=== PATIENT | male | born 1950 | race American Indian/Alaskan Native ===

== ENCOUNTER 2018-04-14 09:07 | Emergency (ER) | payer MEDICARE, OTHER ==
[2018-04-14 09:07] VITALS: BMI 19.8
[2018-04-14 09:15] VITALS: BP 172/85; PULSE 80; RESP 18; TEMP 98; O2SAT 98
[2018-04-14] MEDS ORDERED: Tmp-Smz 800 mg-160 mg DS Tab PO STA (09:36)
[2018-04-14] MEDS ORDERED: Tmp-Smz 800 mg-160 mg DS Tab ONE (09:54)
--- NOTE | 2018-04-14 10:56 | C.PDOC ---
History Of Present Illness 67 y/o male presents to the ER complaining of an inflamed lesion below the right eye for three days He also complains of a rash to the bilateral medial thighs and bilateral forearms that began three days ago. Patient recently returned to apartment from a trip and thinks he has bedbugs. He applies a moisturizer daily to skin but denies using any new allergen, detergent or moisturizer. Time Seen by Provider: 04/14/18 09:25 Chief Complaint (Nursing): Eye Problem History Per: Patient History/Exam Limitations: no limitations Onset/Duration Of Symptoms: Days Current Symptoms Are (Timing): Still Present Pain Scale Rating Of: 2 Past Medical History Reviewed: Historical Data, Nursing Documentation, Vital Signs Vital Signs: Last Vital Signs Temp 98 F 04/14/18 09:13 Pulse 80 04/14/18 09:13 Resp 18 04/14/18 11:27 BP 172/85 H 04/14/18 09:13 Pulse Ox 98 04/14/18 12:00 - Medical History PMH: Anemia, Back Problems Other Surgeries: Gastric Bypass Family History: States: Unknown Family Hx - Social History Hx Tobacco Use: No Hx Alcohol Use: Yes Hx Substance Use: No - Immunization History Hx Tetanus Toxoid Vaccination: Yes Hx Influenza Vaccination: Yes Hx Pneumococcal Vaccination: Yes Review Of Systems Except As Marked, All Systems Reviewed And Found Negative. Constitutional: Negative for: Fever, Chills Eyes: Negative for: Vision Change ENT: Positive for: Other (Right eye swelling). Negative for: Throat Swelling Respiratory: Negative for: Shortness of Breath Skin: Positive for: Rash (extends to bilateral medial thighs and bilateral forearms) Neurological: Negative for: Weakness, Numbness Physical Exam - Physical Exam Appears: Well, Non-toxic, No Acute Distress Skin: Warm, Dry, Rash (nummular rash and wheels to the medial thighs and bilateral forearms going up to the shirt line, but not under wrist watch area) Head: Atraumatic, Normacephalic Eye(s): bilateral: PERRL, EOMI, right: Other (Below R eye: 3x2 cm area of induration, without fluctuance, centered around a pustule vs. sebaceous cyst) Ear(s): Bilateral: Normal Oral Mucosa: Moist Neck: Normal ROM, Supple Chest: Symmetrical Extremity: Normal ROM Extremity: Bilateral: Atraumatic Pulses: Left Radial: Normal, Right Radial: Normal Neurological/Psych: Oriented x3 Gait: Steady ED Course And Treatment O2 Sat by Pulse Oximetry: 98 (RA) Pulse Ox Interpretation: Normal Medical Decision Making Medical Decision Making: Impression:67 y/o male with swollen right eye and nummular rash and wheels Plan: --Pepcid 20 mg PO --Benadryl 25 mg PO --predniSONE 40 mg PO --Bactrim 1 tab PO b/l forearms with nummular rash in sun exposed areas which respects the shirtsleeve line and the wristwatch area Applies a daily lotion to the arms. probably contact dermatitis due to the lotion activated by sun exposure b/l medial thigh symmetrical confluent wheals improved with steroids//pepcid/benadryl also allergic rxn vs contact dermatitis but not in sun-exposed areas. small sebeceous cyst on R cheek bactrim for risk of MRSA warm compresses. Disposition Doctor Will See Patient In The: Office Counseled Patient/Family Regarding: Studies Performed, Diagnosis - Disposition Referrals: Sp Mckeon MD [Medical Doctor] - Disposition: HOME/ ROUTINE Disposition Time: 10:56 Condition: GOOD Additional Instructions: b/l forearms with numular rash in sun exposed areas which respects the shirtsleeve line and the wristwatch area Applies a daily lotion to the arms. probably contact dermatitis due to the lotion activated by sun exposure STOP any lotions to the forearm skin Prednisone 40 mg daily for 4 more days Pepcid 20 mg twice a day (9AM and 9PM) protects the stomach from irritation from the prednisone Benadryl 25-50 mg every 6 hours as needed for pururitis/itchy skin b/l medial thigh symmetrical confluent wheals improved with steroids//pepcid/benadryl also allergic rxn vs contact dermatitis but not in sun-exposed areas. same treatment as above small sebaceous cyst on R cheek bactrim DS (antibiotic) twice a day to complete 5 days, for risk of MRSA do NOT stop antibiotics prior to 5 days warm compresses 20 min/hour until puss released return to ED if wound worstening. 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 I have reviewed the chart and agree that the record accurately reflects my personal performance of the history, physical exam, medical decision making, and the department course for this patient. I have also personally directed, reviewed, and agree with the discharge instructions and disposition.
== END 2018-04-14 11:27 | disposition home or self-care (01) ==
LOC: C.ER 09:07
DX: L72.3 Sebaceous cyst (principal); L25.3 Unspecified contact dermatitis due to other chemical products

== ENCOUNTER 2018-04-14 19:45 | Inpatient (IN) | payer MEDICARE, OTHER ==
[2018-04-14 19:45] VITALS: BMI 19.8
[2018-04-14] MEDS ORDERED: Morphine 4 MG/ML VIAL ONE (20:59)
[2018-04-14 21:05] LABS: BASO % 0.2 % (0.0-2.0); HEMOGLOBIN 14.5 g/dL (12.0-18.0); LYMPH # 0.8 K/uL (1.0-4.3); LYMPH % 6.8 % (20.0-40.0); MEAN CELL VOLUME 89.9 fL (80.0-94.0); MEAN CORPUSCULAR HEMOGLOBIN 29.8 pg (27.0-31.0); MEAN CORPUSCULAR HGB CONC 33.1 g/dL (33.0-37.0); MEAN PLATELET VOLUME 8.7 fL (7.2-11.7); MONO # 0.5 K/uL (0.0-0.8); MONO % 4.5 % (0.0-10.0); NEUT # 9.8 K/uL (1.8-7.0); NEUT % 88.5 % (50.0-75.0); PLATELET COUNT 283 K/uL (130-400); RBC 4.86 Mil/uL (4.40-5.90); RED CELL DISTRIBUTION WIDTH 15.4 % (11.5-14.5); WHITE BLOOD COUNT 11.1 K/uL (4.8-10.8)
[2018-04-14 21:22] LABS: PROTHROMBIN TIME 11.2 SECONDS (9.7-12.2)
[2018-04-14 21:32] LABS: ALB/GLOB RATIO 1.1 (1.0-2.1); ALBUMIN 4.1 g/dL (3.5-5.0); GFR AFRICAN-AMERICAN > 60; GFR NON-AFRICAN AMERICAN > 60
[2018-04-14 21:35] LABS: ALT/SGPT 49 U/L (21-72); AST/SGOT 57 U/L (17-59); BLOOD UREA NITROGEN 17 mg/dL (9-20)
--- NOTE | 2018-04-14 21:39 | C.PDOC ---
History Of Present Illness Pt states that he is unable to reduce his hernia (which he day since the ) today. Time Seen by Provider: 04/14/18 20:19 Chief Complaint (Nursing): Abdominal Pain History Per: Patient Onset/Duration Of Symptoms: Hrs (since this afternoon), Persistent Current Symptoms Are (Timing): Still Present Severity: Moderate Location Of Pain/Discomfort: Other (Left inguinal) Quality Of Discomfort: "Pain" Exacerbating Factors: Movement Alleviating Factors: None Additional History Per: Prior Records Past Medical History Reviewed: Historical Data, Nursing Documentation, Vital Signs Vital Signs: Last Vital Signs Temp 97.8 F 04/14/18 20:09 Pulse 89 04/14/18 20:58 Resp 18 04/14/18 20:58 BP 192/83 H 04/14/18 20:58 Pulse Ox 98 04/14/18 20:58 - Medical History PMH: Back Problems Other Surgeries: Gastric bypass Family History: States: Unknown Family Hx - Social History Hx Tobacco Use: No Hx Alcohol Use: No Hx Substance Use: No - Immunization History Hx Tetanus Toxoid Vaccination: No Hx Influenza Vaccination: Yes Hx Pneumococcal Vaccination: Yes Review Of Systems Except As Marked, All Systems Reviewed And Found Negative. Constitutional: Negative for: Fever, Weakness Cardiovascular: Negative for: Chest Pain Respiratory: Negative for: Shortness of Breath Gastrointestinal: Negative for: Vomiting, Abdominal Pain, Constipation Genitourinary: Negative for: Dysuria Skin: Positive for: Rash Neurological: Negative for: Weakness, Numbness Physical Exam - Physical Exam Appears: Non-toxic, No Acute Distress Skin: Warm, Dry, Rash Head: Atraumatic, Normacephalic Eye(s): bilateral: PERRL, EOMI Neck: Normal ROM, Supple Cardiovascular: Rhythm Regular Respiratory: Normal Breath Sounds, No Accessory Muscle Use Gastrointestinal/Abdominal: Soft, No Tenderness, No Distention, Hernia (left inguinal) Back: No CVA Tenderness Male Genital: No Testicular Tenderness, Inguinal Tenderness (left), Inguinal Swelling (left) Extremity: Normal ROM Neurological/Psych: Oriented x3, Normal Motor, Normal Sensation ED Course And Treatment - Laboratory Results Result Diagrams: 04/14/18 21:01 04/14/18 21:01 O2 Sat by Pulse Oximetry: 98 Pulse Ox Interpretation: Normal Progress Note: I placed pt on trendelenburg position and tried to reduce hernia unsuccessfully. Pt was evaluated by the surgery resident who was not able to reduce hernia manually as well. Pt will be admitted to surgery sonogram technician (Dr. Lloyd Zapien). Reassessment Condition: Unchanged Disposition Counseled Patient/Family Regarding: Studies Performed, Diagnosis - Disposition Disposition: HOSPITALIZED Disposition Time: 21:42 Condition: FAIR - Clinical Impression Clinical Impression: Incarcerated left inguinal hernia
[2018-04-14 21:51] LABS: EOSINOPHIL 1 % (0-4); LYMPHOCYTE 8 % (20-40); MONOCYTE 4 % (0-10); NEUTROPHIL 87 % (50-75); PLATELET ESTIMATE NORMAL (NORMAL); TOTAL CELLS COUNTED 100
[2018-04-14 21:52] LABS: LARGE PLATELETS PRESENT; MICROCYTOSIS SLIGHT
[2018-04-14] MEDS ORDERED: Iohexol 240 (50 ml) PO STA (22:06)
[2018-04-14] MEDS ORDERED: Iohexol 240 (50 ml) ONE (22:18)
[2018-04-14] MEDS ORDERED: Iodixanol 320 MG/ML 100 ML BOTTLE IV ONE (23:06)
[2018-04-14] MEDS ORDERED: Sod Polystyrene Sulf 15 gm/60 ml Susp PO ONE (23:21)
--- NOTE | 2018-04-14 23:43 | CP.PCM.CON ---
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 Patient reports that he has had a left inguinal hernia for the past 21-22 years which has been reducible with firm pressure and application of ice pack whenever it is displaced and there has been no significant complications. However, patient has noticed it has become increasingly difficult to reduce his hernia for the past few weeks. Patient noted hernia displacement earlier this afternoon and it was truly uneducble with moderate discomfort unlike its prior presentation, therefore, patient came to the ED. After ED evaluation and imaging, patient was noted to have an incarcerated L inguinal hernia and was admitted to surgery. Medicine consultation was placed for medical clearance prior to OR later today. Patient denies any associated symptoms of fever, chills, chest pain, palpitations, SOB, abdominal pain, D/C, hematochezia, urinary symptoms, recent travels or sickness and heavy lifting . Patient does admit to straining upon urination. Patient was recently treated for right under eye possible due to bug bite and contact dermatitis of bilateral inner thigh, collar bone and bilateral arms. Code Status: Full code. 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 Denies any current or former use of tobacco, ETOH and illicit drugs. Review of Systems - Constitutional Constitutional: absent: Chills, Fever, Headache, Weakness - EENT Eyes: absent: Blurred Vision, Change in Vision Ears: absent: Dizziness - Cardiovascular Cardiovascular: absent: Chest Pain, Dyspnea, Lightheadedness, Palpitations - Respiratory Respiratory: absent: Cough, Dyspnea, Dyspnea on Exertion, Wheezing - Gastrointestinal Gastrointestinal: absent: Abdominal Pain, Nausea, Vomiting - Genitourinary Genitourinary: Difficulty Urinating. absent: Pyuria, Urinary Frequency, Urinary Urgency - Integumentary Integumentary: Rash - Neurological Neurological: absent: Dizziness, Weakness - Psychiatric Psychiatric: absent: Change in Appetite - Endocrine Endocrine: absent: Fatigue, Palpitations Past Patient History - Past Social History Smoking Status: Never Smoked - INTEGUMENTARY Other/Comment: skin problem - MUSCULOSKELETAL/RHEUMATOLOGICAL Hx Musculoskeletal Disorders: Yes Hx Back Pain: Yes Other/Comment: sciatica - GASTROINTESTINAL Other/Comment: left inguinal hernia - PSYCHIATRIC Hx Substance Use: No - SURGICAL HISTORY Hx Surgeries: Yes Hx Gastric Bypass Surgery: Yes (done 1990) - ANESTHESIA Hx Anesthesia: Yes Hx Anesthesia Reactions: No Hx Malignant Hyperthermia: No Meds Allergies/Adverse Reactions: Allergies Allergy/AdvReac Type Severity Reaction Status Date / Time No Known Allergies Allergy Verified 04/14/18 20:13 - Medications Medications: Current Medications Acetaminophen (Tylenol 325mg Tab) 650 mg PO Q6H PRN PRN Reason: Pain, Mild (1-3) Ketorolac Tromethamine (Toradol) 30 mg IVP Q6H PRN PRN Reason: Pain, moderate (4-7) Sennosides (Senokot Tab) 17.2 mg PO HS TAISHA Physical Exam - Constitutional Appears: No Acute Distress - Head Exam Head Exam: ATRAUMATIC, NORMAL INSPECTION - Eye Exam Eye Exam: EOMI, Normal appearance - ENT Exam ENT Exam: Mucous Membranes Moist - Respiratory Exam Respiratory Exam: Clear to Auscultation Bilateral, NORMAL BREATHING PATTERN. absent: Chest Wall Tenderness, Decreased Breath Sounds, Prolonged Expiratory Phase, Rhonchi, Wheezes - Cardiovascular Exam Cardiovascular Exam: REGULAR RHYTHM, +S1, +S2, Systolic Murmur - GI/Abdominal Exam GI & Abdominal Exam: Normal Bowel Sounds, Soft. absent: Diminished Bowel Sounds , Distended, Firm, Guarding, Tenderness - Exam Additional comments: Unreducible left inguinal hernia - Extremities Exam Extremities exam: Positive for: normal inspection. Negative for: calf tenderness, full ROM, pedal edema, tenderness - Back Exam Back exam: NORMAL INSPECTION. absent: CVA tenderness (L), CVA tenderness (R) - Neurological Exam Neurological exam: Alert, CN II-XII Intact, Normal Gait, Oriented x3 - Skin Skin Exam: Normal Color Additional comments: Contact dermatitis of the bilateral inner thigh, collar bone and bilateral UE Results - Vital Signs Recent Vital Signs: Last Vital Signs Temp 97.5 F L 04/14/18 23:05 Pulse 82 04/14/18 23:05 Resp 20 04/14/18 23:05 BP 199/83 H 04/14/18 23:05 Pulse Ox 100 04/14/18 23:05 - Labs Result Diagrams: 04/14/18 21:01 04/14/18 21:01 Labs: Laboratory Results - last 24 hr 04/14/18 04/14/18 04/14/18 21:01 21:01 21:01 WBC 11.1 H RBC 4.86 Hgb 14.5 Hct 43.6 MCV 89.9 MCH 29.8 MCHC 33.1 RDW 15.4 H Plt Count 283 MPV 8.7 Neut % (Auto) 88.5 H Lymph % (Auto) 6.8 L [place] % (Auto) 4.5 Eos % (Auto) 0.0 Baso % (Auto) 0.2 Neut # (Auto) 9.8 H Lymph # (Auto) 0.8 L [place] # (Auto) 0.5 Eos # (Auto) 0.0 Baso # (Auto) 0.0 Neutrophils % (Manual) 87 H Lymphocytes % (Manual) 8 L Monocytes % (Manual) 4 Eosinophils % (Manual) 1 Platelet Estimate Normal Large Platelets Present Microcytosis (manual) Slight PT 11.2 INR 1.0 APTT 33 Sodium 139 Potassium 5.5 H Chloride 104 Carbon Dioxide 22 Anion Gap 18 BUN 17 Creatinine 0.7 L Est GFR ( Amer) > 60 Est GFR (Non-Af Amer) > 60 Random Glucose 115 H Calcium 9.0 Total Bilirubin 0.5 AST 57 ALT 49 Alkaline Phosphatase 122 Total Protein 7.8 Albumin 4.1 Globulin 3.7 Albumin/Globulin Ratio 1.1 Assessment & Plan (1) Incarcerated left inguinal hernia Assessment and Plan: Gen Surgery, Dr. Tim Zapien * Plans OR today F/u pending CT of abdomen/pelvis Medical Clearance by medicine team (Hospitalist service) * EKG: NSR at 84 BPM with significant left ventricular hypertrophy * Chest X-ray: Increased lung markings, f/u official report * PT/PTT: within normal limit * H/H stable at 14.5 and 43.6 * F/u echo report for evaluation of noted systolic murmur on cardiac exam Patient has a Detsky score of 0. This belongs to class I with 6% risk of cardiovascular complications after non cardiac surgery. Patient has a low risk of perioperative clearance event. Surgeon and anesthesiologist to explain the risks and benefits of the procedure. Status: Acute (2) Contact dermatitis and other eczema due to other chemical products Assessment and Plan: Benadryl 25mg IV Q6H PRN for itching Hydrocortisone 1% topical BID Status: Acute (3) Aortic systolic murmur on examination Assessment and Plan: Asymptomatic F/U echocardiogram Status: Acute (4) Elevated blood pressure reading without diagnosis of hypertension Assessment and Plan: On admission 192/97 Medications given in the ED: * Clonidine 0.1mg PO once * Norvasc 5mg once * Hydralazine 10mg IV once Will start Norvasc 5mg PO daily Continue to monitor with vital sign Q4H Status: Acute (5) Elevated WBCs Assessment and Plan: On admission: * 11 * Continue to monitor with labs Status: Acute (6) Prophylactic measure Assessment and Plan: GI: Pepcid 20mg PO QD with NSAID use for pain control DVT: SCDs, no chemical anticoagulation due to plans for OR today All plans and management discussed with Dr. Yanez Status: Acute <Michael Yanez - Last Filed: 04/15/18 19:56> Results - Vital Signs Recent Vital Signs: Last Vital Signs Temp 99 F 04/15/18 07:50 Pulse 88 04/15/18 07:50 Resp 20 04/15/18 07:50 BP 168/72 H 04/15/18 07:50 Pulse Ox 97 04/15/18 07:50 - Labs Result Diagrams: 04/15/18 04:35 04/15/18 04:35 Labs: Laboratory Results - last 24 hr 04/14/18 04/14/18 04/14/18 21:01 21:01 21:01 WBC 11.1 H RBC 4.86 Hgb 14.5 Hct 43.6 MCV 89.9 MCH 29.8 MCHC 33.1 RDW 15.4 H Plt Count 283 MPV 8.7 Neut % (Auto) 88.5 H Lymph % (Auto) 6.8 L [place] % (Auto) 4.5 Eos % (Auto) 0.0 Baso % (Auto) 0.2 Neut # (Auto) 9.8 H Lymph # (Auto) 0.8 L [place] # (Auto) 0.5 Eos # (Auto) 0.0 Baso # (Auto) 0.0 Neutrophils % (Manual) 87 H Band Neutrophils % Lymphocytes % (Manual) 8 L Reactive Lymphs % Monocytes % (Manual) 4 Eosinophils % (Manual) 1 Platelet Estimate Normal Large Platelets Present Anisocytosis (manual) Microcytosis (manual) Slight Macrocytosis (manual) PT 11.2 INR 1.0 APTT 33 Sodium 139 Potassium 5.5 H Chloride 104 Carbon Dioxide 22 Anion Gap 18 BUN 17 Creatinine 0.7 L Est GFR ( Amer) > 60 Est GFR (Non-Af Amer) > 60 POC Glucose (mg/dL) Random Glucose 115 H Hemoglobin A1c Calcium 9.0 Total Bilirubin 0.5 AST 57 ALT 49 Alkaline Phosphatase 122 Total Protein 7.8 Albumin 4.1 Globulin 3.7 Albumin/Globulin Ratio 1.1 Triglycerides Cholesterol LDL Cholesterol Direct HDL Cholesterol Free T4 TSH 3rd Generation Blood Type Antibody Screen 04/15/18 04/15/18 04/15/18 01:25 04:35 04:35 WBC 11.3 H RBC 4.60 Hgb 13.7 Hct 41.0 MCV 89.1 MCH 29.9 MCHC 33.5 RDW 15.3 H Plt Count 260 MPV 8.5 Neut % (Auto) 89.6 H Lymph % (Auto) 6.4 L [place] % (Auto) 3.7 Eos % (Auto) 0.1 Baso % (Auto) 0.2 Neut # (Auto) 10.1 H Lymph # (Auto) 0.7 L [place] # (Auto) 0.4 Eos # (Auto) 0.0 Baso # (Auto) 0.0 Neutrophils % (Manual) 89 H Band Neutrophils % 2 Lymphocytes % (Manual) 5 L Reactive Lymphs % 1 H Monocytes % (Manual) 3 Eosinophils % (Manual) Platelet Estimate Normal Large Platelets Anisocytosis (manual) Slight Microcytosis (manual) Macrocytosis (manual) Slight PT INR APTT Sodium 139 Potassium 4.4 Chloride 104 Carbon Dioxide 22 Anion Gap 18 BUN 14 Creatinine 0.7 L Est GFR ( Amer) > 60 Est GFR (Non-Af Amer) > 60 POC Glucose (mg/dL) 135 H Random Glucose 125 H Hemoglobin A1c Calcium 8.4 L Total Bilirubin AST ALT Alkaline Phosphatase Total Protein Albumin Globulin Albumin/Globulin Ratio Triglycerides 55 Cholesterol 158 LDL Cholesterol Direct 85 HDL Cholesterol 42 Free T4 TSH 3rd Generation 1.29 Blood Type Antibody Screen 04/15/18 04/15/18 04/15/18 04:35 04:35 04:58 WBC RBC Hgb Hct MCV MCH MCHC RDW Plt Count MPV Neut % (Auto) Lymph % (Auto) [place] % (Auto) Eos % (Auto) Baso % (Auto) Neut # (Auto) Lymph # (Auto) [place] # (Auto) Eos # (Auto) Baso # (Auto) Neutrophils % (Manual) Band Neutrophils % Lymphocytes % (Manual) Reactive Lymphs % Monocytes % (Manual) Eosinophils % (Manual) Platelet Estimate Large Platelets Anisocytosis (manual) Microcytosis (manual) Macrocytosis (manual) PT INR APTT Sodium Potassium Chloride Carbon Dioxide Anion Gap BUN Creatinine Est GFR ( Amer) Est GFR (Non-Af Amer) POC Glucose (mg/dL) Random Glucose Hemoglobin A1c 5.0 Calcium Total Bilirubin AST ALT Alkaline Phosphatase Total Protein Albumin Globulin Albumin/Globulin Ratio Triglycerides Cholesterol LDL Cholesterol Direct HDL Cholesterol Free T4 1.15 TSH 3rd Generation Blood Type O POSITIVE Antibody Screen Negative 04/15/18 04/15/18 06:18 11:11 WBC RBC Hgb Hct MCV MCH MCHC RDW Plt Count MPV Neut % (Auto) Lymph % (Auto) [place] % (Auto) Eos % (Auto) Baso % (Auto) Neut # (Auto) Lymph # (Auto) [place] # (Auto) Eos # (Auto) Baso # (Auto) Neutrophils % (Manual) Band Neutrophils % Lymphocytes % (Manual) Reactive Lymphs % Monocytes % (Manual) Eosinophils % (Manual) Platelet Estimate Large Platelets Anisocytosis (manual) Microcytosis (manual) Macrocytosis (manual) PT INR APTT Sodium Potassium Chloride Carbon Dioxide Anion Gap BUN Creatinine Est GFR ( Amer) Est GFR (Non-Af Amer) POC Glucose (mg/dL) 104 104 Random Glucose Hemoglobin A1c Calcium Total Bilirubin AST ALT Alkaline Phosphatase Total Protein Albumin Globulin Albumin/Globulin Ratio Triglycerides Cholesterol LDL Cholesterol Direct HDL Cholesterol Free T4 TSH 3rd Generation Blood Type Antibody Screen Assessment & Plan - Date & Time Date: 04/15/18 (I have seen and examined the patient. I agree with the findings and plan of care as documented by Dr. Littlejohn. Patient admitted for incarcerated inguinal hernia. Management as per surgery. Consult to medicine for elevated BP. No previous diagnosis of hypertension. Clonidine and Amlodipine given in ED. Continue Amlodipine and hydralazine as needed. Adjust accordingly. Monitor for acute changes.) Time: 19:54 Attending/Attestation - Attestation I have personally seen and examined this patient.: Yes I have fully participated in the care of the patient.: Yes I have reviewed all pertinent clinical information: Yes
--- NOTE | 2018-04-14 23:54 | CP.PCM.HP ---
History of Present Illness - History of Present Illness History of Present Illness: Surgery: Dr. Zapien CC: Incarcerated L inguinal hernia HPI: 67M presents with incarcerated L inguinal hernia. Pt states that he has had hernia for past 21 yrs. Hernia occasionally pops out, but pt states that he has always been able to reduce it with firm pressure or ice. He states that his hernia popped out earlier today and it did not feel like the prior occasions. He states that he attempted to reduce it but was unsuccessful. He states that he has a localized pain to the area. He denies any F/C. No changes in appetite, no N/V. He states that his last BM was this morning and it was normal. He states that he has been having decreased flatus. Over the past 2 weeks, he has had some straining on urination. He states that his mother recently and that he has been under increased amounts of stress. Of note, pt was in ED earlier in day for unrelated issue. He states that he was seen and treated for a cyst under his eye and a contact dermatitis. PMH: anemia-resolved, Guillaren-barre type picture in 2014 PSH: Distal gastric bypass, questionable hx of IVCF Meds: MAR reviewed NKDA Social: No ETOH/Tobacco/drugs Fhx: Non-contributory Present on Admission - Present on Admission Any Indicators Present on Admission: No Review of Systems - Review of Systems All systems: reviewed and no additional remarkable complaints except (HPI) Past Patient History - Past Social History Smoking Status: Never Smoked - INTEGUMENTARY Other/Comment: skin problem - MUSCULOSKELETAL/RHEUMATOLOGICAL Hx Musculoskeletal Disorders: Yes Hx Back Pain: Yes Other/Comment: sciatica - GASTROINTESTINAL Other/Comment: left inguinal hernia - PSYCHIATRIC Hx Substance Use: No - SURGICAL HISTORY Hx Surgeries: Yes Hx Gastric Bypass Surgery: Yes (done 1990) - ANESTHESIA Hx Anesthesia: Yes Hx Anesthesia Reactions: No Hx Malignant Hyperthermia: No Meds Allergies/Adverse Reactions: Allergies Allergy/AdvReac Type Severity Reaction Status Date / Time No Known Allergies Allergy Verified 04/14/18 20:13 Physical Exam - Constitutional Appears: Non-toxic, No Acute Distress - Head Exam Head Exam: ATRAUMATIC, NORMOCEPHALIC - Eye Exam Eye Exam: EOMI - ENT Exam ENT Exam: Mucous Membranes Moist - Neck Exam Neck exam: Positive for: Normal Inspection - Respiratory Exam Respiratory Exam: NORMAL BREATHING PATTERN. absent: Accessory Muscle Use, Respiratory Distress - Cardiovascular Exam Additional comments: Regular rate - GI/Abdominal Exam GI & Abdominal Exam: Hernia (incarcerated L inguinal hernia, tender to palpation ), Soft. absent: Distended, Firm, Guarding, Rigid, Tenderness - Extremities Exam Extremities exam: Negative for: calf tenderness, pedal edema - Neurological Exam Neurological exam: Alert, Oriented x3 - Psychiatric Exam Psychiatric exam: Normal Affect, Normal Mood - Skin Skin Exam: Dry, Warm Results - Vital Signs Recent Vital Signs: Last Vital Signs Temp 97.5 F L 04/14/18 23:05 Pulse 82 04/14/18 23:05 Resp 20 04/14/18 23:05 BP 199/83 H 04/14/18 23:05 Pulse Ox 100 04/14/18 23:05 - Labs Result Diagrams: 04/14/18 21:01 04/14/18 21:01 Labs: Laboratory Results - last 24 hr 04/14/18 04/14/18 04/14/18 21:01 21:01 21:01 WBC 11.1 H RBC 4.86 Hgb 14.5 Hct 43.6 MCV 89.9 MCH 29.8 MCHC 33.1 RDW 15.4 H Plt Count 283 MPV 8.7 Neut % (Auto) 88.5 H Lymph % (Auto) 6.8 L [place] % (Auto) 4.5 Eos % (Auto) 0.0 Baso % (Auto) 0.2 Neut # (Auto) 9.8 H Lymph # (Auto) 0.8 L [place] # (Auto) 0.5 Eos # (Auto) 0.0 Baso # (Auto) 0.0 Neutrophils % (Manual) 87 H Lymphocytes % (Manual) 8 L Monocytes % (Manual) 4 Eosinophils % (Manual) 1 Platelet Estimate Normal Large Platelets Present Microcytosis (manual) Slight PT 11.2 INR 1.0 APTT 33 Sodium 139 Potassium 5.5 H Chloride 104 Carbon Dioxide 22 Anion Gap 18 BUN 17 Creatinine 0.7 L Est GFR ( Amer) > 60 Est GFR (Non-Af Amer) > 60 Random Glucose 115 H Calcium 9.0 Total Bilirubin 0.5 AST 57 ALT 49 Alkaline Phosphatase 122 Total Protein 7.8 Albumin 4.1 Globulin 3.7 Albumin/Globulin Ratio 1.1 Assessment & Plan - Assessment and Plan (Free Text) Assessment: 67M w. incarcerated L inguinal hernia -Will plan for OR tomorrow 04/15 for repair -Medicine consulted for clearance -CT-A/P pending, f/u results -NPO -IVF -Pain meds -d/w attending Lauren PGY4 Decision To Admit - Pt Status Changed To: Hospital Disposition Of: Inpatient - Admit Certification Admit to Inpatient:: After my assessment, the patient will require hospitalization for at least two midnights. This is because of the severity of symptoms shown, intensity of services needed, and/or the medical risk in this patient being treated as an outpatient. - InPatient: Physician Admission Certification:: yes - . Bed Request Type: Regular
[2018-04-15] MEDS: Sodium Chloride 0.9% 1,000 ML IV SCH ×2 (01:05→07:05)
[2018-04-15 01:30] VITALS: RESP 20
[2018-04-15] MEDS ORDERED: DiphenhydrAMINE 50 mg/ml Inj IVP PRN (01:53)
[2018-04-15] MEDS ORDERED: cefTRIAXone IV 1 gm in Dextros 50 ML IVPB ONE (02:06)
[2018-04-15] MEDS ORDERED: Azithromycin 500 MG in Sodium Chloride 0.9% 250 ML IVPB SCH ×2 (03:00→10:00)
[2018-04-15 04:41] LABS: BASO % 0.2 % (0.0-2.0); EOS % 0.1 % (0.0-4.0); HEMOGLOBIN 13.7 g/dL (12.0-18.0); LYMPH # 0.7 K/uL (1.0-4.3); LYMPH % 6.4 % (20.0-40.0); MEAN CELL VOLUME 89.1 fL (80.0-94.0); MEAN CORPUSCULAR HEMOGLOBIN 29.9 pg (27.0-31.0); MEAN CORPUSCULAR HGB CONC 33.5 g/dL (33.0-37.0); MEAN PLATELET VOLUME 8.5 fL (7.2-11.7); MONO # 0.4 K/uL (0.0-0.8); MONO % 3.7 % (0.0-10.0); NEUT # 10.1 K/uL (1.8-7.0); NEUT % 89.6 % (50.0-75.0); PLATELET COUNT 260 K/uL (130-400); RED CELL DISTRIBUTION WIDTH 15.3 % (11.5-14.5); WHITE BLOOD COUNT 11.3 K/uL (4.8-10.8)
[2018-04-15 05:01] LABS: BLOOD UREA NITROGEN 14 mg/dL (9-20); CALCIUM 8.4 mg/dl (8.6-10.4); GFR AFRICAN-AMERICAN > 60; GFR NON-AFRICAN AMERICAN > 60; HDL CHOLESTEROL 42 mg/dL (30-70)
[2018-04-15 05:11] LABS: LDL CHOLESTEROL 85 mg/dL (0-129)
[2018-04-15 06:10] LABS: BANDS 2 % (0-2); LYMPHOCYTE 5 % (20-40); MONOCYTE 3 % (0-10); NEUTROPHIL 89 % (50-75); REACTIVE LYMPHOCYTES 1 % (0-0); TOTAL CELLS COUNTED 100
[2018-04-15 06:11] LABS: ANISOCYTOSIS SLIGHT; PLATELET ESTIMATE NORMAL (NORMAL)
[2018-04-15 06:35] VITALS: PULSE 88
[2018-04-15 07:50] VITALS: BP 168/72; TEMP 99; O2SAT 97
--- NOTE | 2018-04-15 08:26 | RAD ---
Date of service: 04/14/2018 HISTORY: pre-op COMPARISON: No prior. FINDINGS: LUNGS: The lungs are well inflated. There is patchy airspace disease in the right mid lung and lower lobe. The left lung is clear. PLEURA: No significant pleural effusion identified, no pneumothorax apparent. CARDIOVASCULAR: Normal. OSSEOUS STRUCTURES: No significant abnormalities. VISUALIZED UPPER ABDOMEN: Normal. OTHER FINDINGS: None. IMPRESSION: Patchy airspace disease in the right upper and lower lobes may represent multifocal pneumonia. Follow-up after medical management is recommended to ensure complete resolution.
[2018-04-15] MEDS ORDERED: Hydrocortisone 1% Cream (30 GM) TOP SCH (10:00)
[2018-04-15] MEDS ORDERED: Saccharomyces Boulardi 250 mg Cap PO SCH (10:00)
--- NOTE | 2018-04-15 11:16 | CT ---
Date of service: 04/15/2018 PROCEDURE: CT Abdomen and Pelvis with contrast HISTORY: Incarcerated left inguinal hernia COMPARISON: None. TECHNIQUE: CT scan of the abdomen and pelvis was performed after administration of intravenous contrast. Oral contrast was not administered. Coronal and sagittal reformatted images were obtained. Contrast dose: 100 mL Visipaque Radiation dose: Total exam DLP = 402.60 mGy-cm. This CT exam was performed using one or more of the following dose reduction techniques: Automated exposure control, adjustment of the mA and/or kV according to patient size, and/or use of iterative reconstruction technique. FINDINGS: LOWER THORAX: There is multifocal ground-glass attenuation in the right middle lobe, lingula and left lower lobe. LIVER: Normal in size with homogeneous enhancement. No gross lesion or ductal dilatation. GALLBLADDER AND BILE DUCTS: Surgically absent. PANCREAS: Normal in size with homogeneous enhancement. No gross lesion or ductal dilatation. SPLEEN: Normal in size with homogeneous enhancement. ADRENALS: No discrete nodule. KIDNEYS AND URETERS: Normal in size with homogeneous enhancement. No hydronephrosis. No solid mass. There is a nonspecific coarse parenchymal calcification in the left upper pole. VASCULATURE: An infrarenal IVC filter remains in. No aortic aneurysm. BOWEL: The proximal small bowel loops are normal in caliber. There is segmental dilatation and mural thickening in distal small bowel loop in the right abdomen. The terminal ileum and ileocecal junction are normal. The colon is unremarkable. APPENDIX: Normal appendix. PERITONEUM: No free fluid. No free air. LYMPH NODES: No enlarged lymph nodes. BLADDER: The urinary bladder is well distended. There is herniation of the left lateral urinary bladder into the inguinal scrotal region. REPRODUCTIVE: The prostate gland is normal in size. BONES: No acute fracture. OTHER FINDINGS: There is a moderate left hydrocele. IMPRESSION: Left inguinal hernia with herniation of the left lateral urinary bladder. No evidence of bowel herniation or incarceration. Suspect multifocal alveolar edema versus pneumonia in the right middle lobe, lingula and left lower lobe. A preliminary report was provided by [employer] services.
--- NOTE | 2018-04-15 20:04 | CP.PCM.PN ---
Subjective - Date & Time of Evaluation Date of Evaluation: 04/15/18 Time of Evaluation: 10:00 - Subjective Subjective: Pt left hospital care AMA. Pt has not been able to be contacted by home and cell phone to inform of CXR and CT results of pneumonia and to call in Azithromycin 500mg BID at pt's pharmacy. Pt will follow up with out pt surgery for reduction of hernia. Objective - Vital Signs/Intake and Output Vital Signs (last 24 hours): Temp Pulse Resp BP Pulse Ox 99 F 88 20 168/72 H 97 04/15/18 07:50 04/15/18 07:50 04/15/18 07:50 04/15/18 07:50 04/15/18 07:50 - Labs Labs: 04/15/18 04:35 04/15/18 04:35 PT 11.2 SECONDS (9.7-12.2) 04/14/18 21:01 INR 1.0 04/14/18 21:01 APTT 33 SECONDS (21-34) 04/14/18 21:01
--- NOTE | 2018-04-15 20:35 | CARD ---
APPROVED REPORT Date of service: 04/15/2018 EXAM: Two-dimensional and M-mode echocardiogram with Doppler and color Doppler. Other Information Quality : GoodRhythm : INDICATION Murmur 2D DIMENSIONS IVSd1.3 (0.7-1.1cm)LVDd4.1 (3.9-5.9cm) LVOT Diameter2.2 (1.8-2.4cm)PWd1.3 (0.7-1.1cm) LVDs2.3 (2.5-4.0cm)FS (%) 43.1 % LVEF (%)74.7 (>50%) M-Mode DIMENSIONS Left Atrium (MM)3.69 (2.5-4.0cm)IVSd1.37 (0.7-1.1cm) Aortic Root3.32 (2.2-3.7cm)LVDd5.10 (4.0-5.6cm) Aortic Cusp Exc.1.49 (1.5-2.0cm)PWd0.86 (0.7-1.1cm) FS (%) 37 %LVDs3.21 (2.0-3.8cm) LVEF (%)67 (>50%) Aortic Valve AoV Peak Bytonwrj577.4cm/sAoV VTI74.5cmAO Peak GR.57mmHg LVOT Peak Wzwxqrvf939.2cm/sLVOT VTI26.60cmAO Mean GR.33mmHg SAMUEL (VMAX)1.52dt6SOL (VTI)1.36cm2 Mitral Valve MV E Rbtqvgnu551.6cm/sE/A ratio0.0 TDI E/Lateral E'0.0E/Medial E'0.0 Tricuspid Valve TR Peak Gtmvqixa573mm/sTR Peak Gr.16moUgLFYS42raIa LEFT VENTRICLE The left ventricle is normal size. There is mild concentric left ventricular hypertrophy. The left ventricular function is normal. The left ventricular ejection fraction is within the normal range. 61% No regional wall motion abnormalities noted. The left ventricular diastolic function is normal. No left ventricle thrombus noted on this study. There is no ventricular septal defect visualized. There is no left ventricular aneurysm. There is no mass noted in the left ventricle. RIGHT VENTRICLE The right ventricle is normal size. There is normal right ventricular wall thickness. The right ventricular systolic function is normal. ATRIA The left atrium size is normal. The right atrium size is normal. The interatrial septum is intact with no evidence for an atrial septal defect. AORTIC VALVE The aortic valve is trileaflet and demonstrates moderate to markedly reduced opening. Peak gradient is 60 mm Hg, and estimated valve area is 1.2 cm2 (but looks possiblly a bit less visually). Clinical correlation. Mild aortic regurgitation is present. There is no aortic valvular stenosis. There is no aortic valvular vegetation. MITRAL VALVE The mitral valve is normal in structure and function. There is no evidence of mitral valve prolapse. There is no mitral valve stenosis. There is no mitral valve regurgitation noted. TRICUSPID VALVE The tricuspid valve is normal in structure and function. There is no tricuspid valve regurgitation noted. There is no tricuspid valve prolapse or vegetation. There is no tricuspid valve stenosis. PULMONIC VALVE The pulmonary valve is normal in structure and function. There is no pulmonic valvular regurgitation. There is no pulmonic valvular stenosis. GREAT VESSELS The aortic root is normal in size. The ascending aorta is normal in size. The pulmonary artery is normal. The IVC is normal in size and collapses >50% with inspiration. PERICARDIAL EFFUSION The pericardium appears normal. There is no pleural effusion. <Conclusion> There is mild concentric left ventricular hypertrophy. The left ventricular function is normal. The aortic valve is trileaflet and demonstrates moderate to markedly reduced opening. Peak gradient is 60 mm Hg, and estimated valve area is 1.2 cm2 (but looks possiblly a bit less visually). Clinical correlation. Mild aortic regurgitation.
--- NOTE | 2018-04-15 20:45 | CARD ---
APPROVED REPORT Date of service: 04/14/2018 EKG Measurement Heart [id number] <Conclusion> Normal sinus rhythm Possible Left atrial enlargement Left ventricular hypertrophy Abnormal ECG
== END 2018-04-15 13:52 | disposition home or self-care (01) | DRG 395 ==
LOC: C.ER 19:45 → C.9E 21:53 → C.3T 22:58
PROVIDERS: ADMIT Surgery; ATTEND Surgery
DX: K40.30 Unilateral inguinal hernia, with obstruction, without gangrene, not specified as recurrent (principal); I35.8 Other nonrheumatic aortic valve disorders; M54.30 Sciatica, unspecified side; R03.0 Elevated blood-pressure reading, without diagnosis of hypertension; L25.3 Unspecified contact dermatitis due to other chemical products; Z98.84 Bariatric surgery status; Z80.0 Family history of malignant neoplasm of digestive organs

== ENCOUNTER 2018-05-10 10:37 | Emergency (ER) | payer MEDICARE, OTHER ==
[2018-05-10 10:37] VITALS: BMI 19.8
[2018-05-10 10:47] VITALS: BP 152/93; PULSE 85; RESP 20; TEMP 98; O2SAT 98
[2018-05-10] MEDS ORDERED: Dexamethasone 4 mg/1 ml IM STA (11:33)
--- NOTE | 2018-05-10 11:36 | C.PDOC ---
History Of Present Illness 67 yo male came into the ED for itchy rash for 3 weeks. Pt was evaluated for his rash when it started, treated with prednisone and benadryl but symptoms persists. No known allergens- no new detergent, foods, medications. He has been using OTC cream with intermittent improvement of itching. Denies sob, chest pain , sore throat, tongue/lip swelling, fever, URI or difficulty swallowing. Time Seen by Provider: 05/10/18 11:01 Chief Complaint (Nursing): Abnormal Skin Integrity History Per: Patient History/Exam Limitations: no limitations Onset/Duration Of Symptoms: Days Current Symptoms Are (Timing): Still Present Quality Of Symptoms: Itching Past Medical History Vital Signs: Last Vital Signs Temp 98.0 F 05/10/18 10:45 Pulse 85 05/10/18 10:45 Resp 20 05/10/18 10:45 BP 152/93 H 05/10/18 10:45 Pulse Ox 98 05/10/18 12:12 - Medical History PMH: Anemia, Back Problems Denies: Chronic Kidney Disease Other Surgeries: hernia repair Family History: States: Unknown Family Hx - Social History Hx Tobacco Use: No Hx Alcohol Use: Yes Hx Substance Use: No - Immunization History Hx Tetanus Toxoid Vaccination: No Hx Influenza Vaccination: No Hx Pneumococcal Vaccination: No Review Of Systems Except As Marked, All Systems Reviewed And Found Negative. Skin: Positive for: Rash Physical Exam - Physical Exam Appears: Well, Non-toxic, No Acute Distress Skin: Warm, Dry, Rash ((+) diffuse erythamous maculopapular rash, no vesicles, no discharge) Head: Atraumatic, Normacephalic Eye(s): bilateral: Normal Inspection, PERRL, EOMI Ear(s): Bilateral: Normal Nose: Normal Oral Mucosa: Moist Tongue: No Swelling Lips: No Swelling Throat: Normal, No Erythema, No Exudate, No Drooling Neck: Normal, Normal ROM, Supple Chest: Symmetrical Cardiovascular: Rhythm Regular Respiratory: Normal Breath Sounds, No Accessory Muscle Use Gastrointestinal/Abdominal: Normal Exam, Soft, No Tenderness Back: Normal Inspection Extremity: Normal ROM Neurological/Psych: Oriented x3, Normal Speech ED Course And Treatment O2 Sat by Pulse Oximetry: 98 Progress Note: Case discussed with Dr Sierra who evaluated pt at bedside and agreed upon plan and treatment. DEcadron orderd. On re-evaluation, Patient is resting comfortably, tolerating PO, has no shortness of breath, has no intra- oral swelling, no stridor. Patient notes that pruritus has improved.. Patient was advised to avoid potential allergens, and to follow up with physician in 1- 2 days. 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 Return to ER if symptoms persist or worsen. Prescriptions: Clotrimazole/Betamethasone [Lotrisone] 1 gm EXT BID #1 tube DiphenhydrAMINE [Benadryl] 25 mg PO Q6 #20 cap Famotidine [Pepcid] 20 mg PO BID #10 tab Instructions: Skin Rash (DC) Forms: [facility] (Turkish) - Clinical Impression Clinical Impression: Rash
== END 2018-05-10 11:45 | disposition home or self-care (01) ==
LOC: C.ER 10:37
DX: R21 Rash and other nonspecific skin eruption (principal)
CPT/HCPCS: 96372; 99283; J1100

== ENCOUNTER 2018-10-06 15:12 | Inpatient (IN) | payer MEDICARE, OTHER ==
[2018-10-06 15:13] VITALS: BMI 19.8
--- NOTE | 2018-10-06 15:41 | C.PDOC ---
History Of Present Illness 68yo male with history of hypertension, aortic valve stenosis, and a skin rash (per Dr. Flores) is sent to ER by his PMD for evaluation due to bilateral lower extremity edema. Patient also reports redness to his bilateral lower legs. Per Dr. Flores, she is concerned about cellulitis vs. DVT vs. cardiac issues. Patient states the redness has been present for the past 2-3 weeks with the lower extremity edema. Patient otherwise denies any chest pain, shortness of breath, dyspnea on exertion, leg pain, fever, chills, night sweats. No additional complaints. Time Seen by Provider: 10/06/18 15:41 Chief Complaint (Nursing): Weakness/Neurological Deficit History Per: Patient History/Exam Limitations: no limitations Past Medical History Reviewed: Historical Data, Nursing Documentation, Vital Signs Vital Signs: Last Vital Signs Temp Pulse 62 10/06/18 15:24 Resp 18 10/06/18 15:24 BP 141/69 10/06/18 15:24 Pulse Ox 100 10/06/18 15:24 - Medical History PMH: Anemia, Back Problems Denies: Chronic Kidney Disease Surgical History: No Surg Hx Family History: States: Unknown Family Hx - Social History Hx Tobacco Use: No Hx Alcohol Use: Yes Hx Substance Use: No - Immunization History Hx Tetanus Toxoid Vaccination: No Hx Influenza Vaccination: No Hx Pneumococcal Vaccination: No Review Of Systems Except As Marked, All Systems Reviewed And Found Negative. Constitutional: Negative for: Fever, Chills, Sweats Eyes: Negative for: Pain ENT: Negative for: Ear Pain Cardiovascular: Negative for: Chest Pain Respiratory: Negative for: Shortness of Breath, SOB with Excertion Gastrointestinal: Negative for: Nausea, Vomiting, Abdominal Pain, Constipation, Melena, Hematochezia Genitourinary: Negative for: Dysuria, Frequency, Hematuria Musculoskeletal: Positive for: Other (leg swelling bilaterally, redness to bilateral lower legs). Negative for: Neck Pain, Shoulder Pain, Back Pain Skin: Positive for: Rash Neurological: Negative for: Weakness, Numbness Psych: Negative for: Anxiety, Depression Physical Exam - Physical Exam Appears: Non-toxic, No Acute Distress Skin: Normal Color, Warm, Dry, No Rash, Other (skin changes bilateral lower extremities. ) Head: Atraumatic, Normacephalic Eye(s): bilateral: Normal Inspection Nose: Normal Oral Mucosa: Moist Tongue: Normal Appearing Lips: Normal Appearing Neck: Normal ROM, Supple Chest: Symmetrical Cardiovascular: Rhythm Regular Respiratory: Normal Breath Sounds, No Decreased Breath Sounds, No Wheezing Gastrointestinal/Abdominal: Normal Exam Back: Normal Inspection Extremity: Normal ROM, Pedal Edema (1+ pitting edema bilaterally), No Calf Tenderness, Capillary Refill (< 2 seconds) Pulses: Left Dorsalis Pedis: Normal, Right Dorsalis Pedis: Normal Neurological/Psych: Oriented x3, Normal Speech, Normal Cognition Gait: Steady ED Course And Treatment - Laboratory Results Result Diagrams: 10/06/18 16:35 10/06/18 16:35 O2 Sat by Pulse Oximetry: 100 (RA) Pulse Ox Interpretation: Normal - Other Rad CXR X-Ray: Read By Radiologist Interpretation: FINDINGS: LUNGS: Patchy bilateral airspace disease/multifocal ground-glass opacities particularly within the mid to lower lung zones. Please note that chest x-ray has limited sensitivity for the detection of pulmonary masses. PLEURA: No significant pleural effusion identified. No definite pneumothorax . CARDIOVASCULAR: Heart size appears within normal limits. Atherosclerotic calcifications present. OSSEOUS STRUCTURES: Degenerative changes. VISUALIZED UPPER ABDOMEN: Unremarkable. OTHER FINDINGS: None. IMPRESSION: Patchy bilateral airspace disease/multifocal ground-glass opacities particularly within the mid to lower lung zones. Considerations include but not limited to multifocal edema or pneumonia. Correlate clinically and follow-up to resolution. Medical Decision Making Medical Decision Makinyo male, comes to ER with bilateral lower extremity edema and skin changes bilaterally DVT vs. Cellulitis vs. Cardiac etiology Plan: -- Labs -- CXR -- US Doppler bilaterally -- IV Clindamycin lactic unremarkable b/l pna, avelox ordered. no elevated wbc pt in NAD accepted by DR. Donato service: pmd is Dr. Fowler (clinic) Disposition - Disposition Disposition Time: 18:07 Condition: GOOD - Clinical Impression Clinical Impression: Cellulitis, Pneumonia - Scribe Statement The provider has reviewed the documentation as recorded by the Arianna Shukla Provider Attestation: All medical record entries made by the Arianna were at my direction and personally dictated by me. I have reviewed the chart and agree that the record accurately reflects my personal performance of the history, physical exam, medical decision making, and the department course for this patient. I have also personally directed, reviewed, and agree with the discharge instructions and disposition.
[2018-10-06] MEDS ORDERED: Clindamycin 600mg/50ml D5W 600 MG/50 ML VIAL IVPB SCH (16:30)
[2018-10-06 16:40] LABS: BASO % 0.4 % (0.0-2.0); EOS # 0.6 K/uL (0.0-0.7); EOS % 12.2 % (0.0-4.0); HEMOGLOBIN 13.8 g/dL (12.0-18.0); LYMPH # 0.7 K/uL (1.0-4.3); LYMPH % 13.2 % (20.0-40.0); MEAN CORPUSCULAR HEMOGLOBIN 29.8 pg (27.0-31.0); MEAN CORPUSCULAR HGB CONC 32.3 g/dL (33.0-37.0); MEAN PLATELET VOLUME 9.8 fL (7.2-11.7); MONO # 0.4 K/uL (0.0-0.8); MONO % 8.5 % (0.0-10.0); NEUT # 3.4 K/uL (1.8-7.0); NEUT % 65.7 % (50.0-75.0); NRBC % 0.1 % (0.0-2.0); RBC 4.64 Mil/uL (4.40-5.90)
[2018-10-06 16:42] LABS: MEAN CELL VOLUME 92.2 fL (80.0-94.0); WHITE BLOOD COUNT 5.2 K/uL (4.8-10.8)
[2018-10-06 16:46] LABS: VENOUS BLOOD GAS BASE EXCESS 1.5 mmol/L (0.0-2.0); VENOUS BLOOD GAS PCO2 46 mmHg (40-60); VENOUS BLOOD GAS PO2 49 mm/Hg (30-55); VENOUS BLOOD PH 7.38 (7.32-7.43)
[2018-10-06 16:59] LABS: ALB/GLOB RATIO 0.9 (1.0-2.1); ALT/SGPT 56 U/L (21-72); AST/SGOT 66 U/L (17-59); BLOOD UREA NITROGEN 18 mg/dL (9-20); CALCIUM 8.7 mg/dl (8.6-10.4); GFR NON-AFRICAN AMERICAN > 60
[2018-10-06 17:09] LABS: B-TYPE NATRIURETIC PEPTIDE 96.8 pg/mL (0-900)
--- NOTE | 2018-10-06 17:14 | RAD ---
HISTORY: b/l le edema COMPARISON: Chest x-ray performed 04/14/18 TECHNIQUE: Chest, one view. FINDINGS: LUNGS: Patchy bilateral airspace disease/multifocal ground-glass opacities particularly within the mid to lower lung zones. Please note that chest x-ray has limited sensitivity for the detection of pulmonary masses. PLEURA: No significant pleural effusion identified. No definite pneumothorax . CARDIOVASCULAR: Heart size appears within normal limits. Atherosclerotic calcifications present. OSSEOUS STRUCTURES: Degenerative changes. VISUALIZED UPPER ABDOMEN: Unremarkable. OTHER FINDINGS: None. IMPRESSION: Patchy bilateral airspace disease/multifocal ground-glass opacities particularly within the mid to lower lung zones. Considerations include but not limited to multifocal edema or pneumonia. Correlate clinically and follow-up to resolution.
[2018-10-06] MEDS ORDERED: Clindamycin 600mg/50ml NS 600 MG/50 ML BAG IVPB STA (17:20)
[2018-10-06] MEDS ORDERED: Clindamycin 600mg/50ml NS 600 MG/50 ML BAG IVPB ONE (17:25)
[2018-10-06] MEDS ORDERED: Moxifloxacin IV 400mg/250ml NS 400 MG/250 ML BAG IVPB ONE ×2 (17:55→18:10)
--- NOTE | 2018-10-06 19:05 | CP.PCM.HP ---
History of Present Illness - History of Present Illness History of Present Illness: Patient was referred from the medical clinic with lower extremity swelling and redness. The swelling of the extremities has been present for some time. Routine workup in the emergency room showed patient had bilateral groundglass infiltrate in the chest x-ray patient does not have any specific respiratory symptoms but complains of dyspnea on exertion. In 2018 patient had echo done which showed aortic stenosis valve area 1.2 cm Patient also had a history of hernia operation. Patient is now admitted for possible CHF possible pneumonia with possible progression of aortic stenosis Present on Admission - Present on Admission Any Indicators Present on Admission: No Review of Systems - Review of Systems All systems: reviewed and no additional remarkable complaints except (lower extremity swelling) Past Patient History - Infectious Disease Hx of Infectious Diseases: None - Past Medical History & Family History Past Medical History?: Yes - Past Social History Smoking Status: Never Smoked - CARDIAC Hx Cardiac Disorders: No - PULMONARY Hx Respiratory Disorders: No - NEUROLOGICAL Hx Neurological Disorder: No - HEENT Hx HEENT Problems: No Other/Comment: with right cyst on lower orbital area - RENAL Hx Chronic Kidney Disease: No - ENDOCRINE/METABOLIC Hx Endocrine Disorders: No - HEMATOLOGICAL/ONCOLOGICAL Hx Anemia: Yes - INTEGUMENTARY Other/Comment: skin problem - MUSCULOSKELETAL/RHEUMATOLOGICAL Hx Musculoskeletal Disorders: Yes Hx Back Pain: Yes Other/Comment: sciatica - GASTROINTESTINAL Other/Comment: left inguinal hernia - GENITOURINARY/GYNECOLOGICAL Hx Genitourinary Disorders: No - PSYCHIATRIC Hx Substance Use: No - SURGICAL HISTORY Hx Surgeries: Yes Hx Gastric Bypass Surgery: Yes (done 1990) - ANESTHESIA Hx Anesthesia: Yes Hx Anesthesia Reactions: No Hx Malignant Hyperthermia: No Meds Allergies/Adverse Reactions: Allergies Allergy/AdvReac Type Severity Reaction Status Date / Time No Known Allergies Allergy Verified 05/10/18 10:45 Physical Exam - Head Exam Head Exam: ATRAUMATIC, NORMAL INSPECTION, NORMOCEPHALIC - Eye Exam Eye Exam: EOMI, Normal appearance, PERRL - ENT Exam ENT Exam: Mucous Membranes Moist, Normal Exam - Neck Exam Neck exam: Positive for: Normal Inspection - Respiratory Exam Respiratory Exam: Rhonchi - Cardiovascular Exam Cardiovascular Exam: +S1, +S2, Systolic Murmur (in the aortic area) - GI/Abdominal Exam GI & Abdominal Exam: Normal Bowel Sounds, Soft. absent: Tenderness - Extremities Exam Extremities exam: Positive for: pedal edema, tenderness - Back Exam Back exam: absent: CVA tenderness (L), CVA tenderness (R) - Neurological Exam Neurological exam: Alert, CN II-XII Intact, Normal Gait, Oriented x3, Reflexes Normal Results - Vital Signs Recent Vital Signs: Last Vital Signs Temp 93.9 F L 10/06/18 18:06 Pulse 69 10/06/18 18:06 Resp 12 10/06/18 18:06 BP 97/61 L 10/06/18 18:06 Pulse Ox 100 10/06/18 18:11 - Labs Result Diagrams: 10/06/18 16:35 10/06/18 16:35 Labs: Laboratory Results - last 24 hr 10/06/18 10/06/18 10/06/18 16:35 16:35 16:43 WBC 5.2 D RBC 4.64 Hgb 13.8 Hct 42.7 MCV 92.2 D MCH 29.8 MCHC 32.3 L RDW 15.0 H Plt Count 219 MPV 9.8 Neut % (Auto) 65.7 Lymph % (Auto) 13.2 L [place] % (Auto) 8.5 Eos % (Auto) 12.2 H Baso % (Auto) 0.4 Neut # (Auto) 3.4 Lymph # (Auto) 0.7 L [place] # (Auto) 0.4 Eos # (Auto) 0.6 Baso # (Auto) 0.0 pO2 49 VBG pH 7.38 VBG pCO2 46 VBG HCO3 25.7 VBG Total CO2 28.6 H VBG O2 Sat (Calc) 85.2 H VBG Base Excess 1.5 VBG Potassium 4.0 Glucose 97 Lactate 1.5 Sodium 141 141.0 Potassium 3.9 Chloride 108 H 107.0 Carbon Dioxide 27 Anion Gap 10 BUN 18 Creatinine 0.8 Est GFR ( Amer) > 60 Est GFR (Non-Af Amer) > 60 Random Glucose 96 Calcium 8.7 Total Bilirubin 0.3 AST 66 H ALT 56 Alkaline Phosphatase 189 H D Troponin I 0.0150 NT-Pro-B Natriuret Pep 96.8 Total Protein 6.4 Albumin 3.0 L D Globulin 3.4 Albumin/Globulin Ratio 0.9 L Venous Blood Potassium 4.0 Assessment & Plan (1) Pneumonia Status: Acute (2) Aortic stenosis Status: Acute
[2018-10-06] MEDS ORDERED: Vancomycin 1 GM 1 GM/250 ML BAG IVPB ONE (19:56)
--- NOTE | 2018-10-06 20:44 | CP.PCM.CON ---
History of Present Illness - History of Present Illness History of Present Illness: INFECTIOUS DISEASE CONSULT; HPI: 68-year-old male with history of anemia, back problems, who is referred from the medical clinic for bilateral lower extremity cellulitis and swelling of the lower extremities for past 2-3 weeks. Patient also complains of dyspnea on exertion but denies any fever or chills. Chest x-ray on admission showed multifocal groundglass opacities with multifocal airspace disease mid to lower lung zones consistent with questionable pulmonary edema versus pneumonia. Patient denies any chest pain or palpitations. Patient was therefore advised admission for cellulitis lower extremities, also to rule out DVT lower extremities with possible CHF versus pneumonia. INFECTIOUS DISEASE CONSULTATION REQUESTED BY PMD FOR BILATERAL CELLULITIS LOWER EXTREMITIES AND PNEUMONIA. Patient denies any recent travel. Denies any recent sick contacts. Patient is not up-to-date on his immunizations. PMH: Anemia, Back Problems Denies: Chronic Kidney Disease Surgical History: No Surg Hx Family History: States: Unknown Family Hx - Social History Hx Tobacco Use: No Hx Alcohol Use: Yes Hx Substance Use: No - Immunization History Hx Tetanus Toxoid Vaccination: No Hx Influenza Vaccination: No Hx Pneumococcal Vaccination: No ALLERGY: NKA Review of Systems - Constitutional Constitutional: absent: Chills, Fever - EENT Eyes: absent: Change in Vision Nose/Mouth/Throat: absent: Nasal Congestion, Mouth Lesions - Cardiovascular Cardiovascular: Dyspnea on Exertion, Edema, Pedal Edema. absent: Chest Pain - Respiratory Respiratory: Cough, Dyspnea on Exertion. absent: Hemoptysis - Gastrointestinal Gastrointestinal: absent: Abdominal Pain, Diarrhea, Nausea, Vomiting - Genitourinary Genitourinary: absent: Dysuria, Urinary Hesitance - Neurological Neurological: absent: Headaches - Hematologic/Lymphatic Hematologic: As Per HPI. absent: Easy Bleeding, Easy Bruising Past Patient History - Infectious Disease Hx of Infectious Diseases: None - Past Medical History & Family History Past Medical History?: Yes - Past Social History Smoking Status: Never Smoked - CARDIAC Hx Cardiac Disorders: No - PULMONARY Hx Respiratory Disorders: No - NEUROLOGICAL Hx Neurological Disorder: No - HEENT Hx HEENT Problems: No Other/Comment: with right cyst on lower orbital area - RENAL Hx Chronic Kidney Disease: No - ENDOCRINE/METABOLIC Hx Endocrine Disorders: No - HEMATOLOGICAL/ONCOLOGICAL Hx Anemia: Yes - INTEGUMENTARY Other/Comment: skin problem - MUSCULOSKELETAL/RHEUMATOLOGICAL Hx Musculoskeletal Disorders: Yes Hx Back Pain: Yes Other/Comment: sciatica - GASTROINTESTINAL Other/Comment: left inguinal hernia - GENITOURINARY/GYNECOLOGICAL Hx Genitourinary Disorders: No - PSYCHIATRIC Hx Substance Use: No - SURGICAL HISTORY Hx Surgeries: Yes Hx Gastric Bypass Surgery: Yes (done 1990) - ANESTHESIA Hx Anesthesia: Yes Hx Anesthesia Reactions: No Hx Malignant Hyperthermia: No Meds Allergies/Adverse Reactions: Allergies Allergy/AdvReac Type Severity Reaction Status Date / Time No Known Allergies Allergy Verified 05/10/18 10:45 - Medications Medications: Current Medications Vancomycin HCl 1 gm/ Sodium (Chloride) 250 mls @ 166.7 mls/hr IVPB STAT STA; Protocol Stop: 10/06/18 21:28 Last Admin: 10/06/18 20:17 Dose: 166.7 mls/hr Vancomycin HCl 1 gm/ Sodium (Chloride) 250 mls @ 166.7 mls/hr IVPB Q24H [facility]; Protocol Ceftriaxone Sodium 1 gm/ (Sodium Chloride) 100 mls @ 100 mls/hr IVPB Q12H [facility]; Protocol Azithromycin 500 mg/ Sodium (Chloride) 250 mls @ 250 mls/hr IVPB DAILY [facility]; Protocol Physical Exam - Constitutional Appears: No Acute Distress - Head Exam Head Exam: NORMAL INSPECTION - Eye Exam Eye Exam: EOMI, PERRL - ENT Exam ENT Exam: Normal Oropharynx - Neck Exam Neck exam: Positive for: Normal Inspection - Respiratory Exam Respiratory Exam: Rales, Rhonchi, NORMAL BREATHING PATTERN - Cardiovascular Exam Cardiovascular Exam: REGULAR RHYTHM, +S1, +S2, Systolic Murmur - GI/Abdominal Exam GI & Abdominal Exam: Normal Bowel Sounds, Soft. absent: Organomegaly - Extremities Exam Extremities exam: Positive for: pedal edema, pedal pulses present (bilateral cellulitis lower extremities with erythema and 2+ edema.). Negative for: calf tenderness - Neurological Exam Neurological exam: Alert, CN II-XII Intact, Oriented x3, Reflexes Normal - Psychiatric Exam Psychiatric exam: Normal Mood - Skin Skin Exam: Normal Color, Warm Results - Vital Signs Recent Vital Signs: Last Vital Signs Temp 97.1 F L 10/06/18 19:47 Pulse 72 10/06/18 19:40 Resp 18 10/06/18 19:40 BP 82/57 L 10/06/18 19:40 Pulse Ox 97 10/06/18 19:40 - Labs Result Diagrams: 10/07/18 05:37 10/07/18 05:37 Labs: Laboratory Results - last 24 hr 10/06/18 10/06/18 10/06/18 16:35 16:35 16:43 WBC 5.2 D RBC 4.64 Hgb 13.8 Hct 42.7 MCV 92.2 D MCH 29.8 MCHC 32.3 L RDW 15.0 H Plt Count 219 MPV 9.8 Neut % (Auto) 65.7 Lymph % (Auto) 13.2 L [place] % (Auto) 8.5 Eos % (Auto) 12.2 H Baso % (Auto) 0.4 Neut # (Auto) 3.4 Lymph # (Auto) 0.7 L [place] # (Auto) 0.4 Eos # (Auto) 0.6 Baso # (Auto) 0.0 pO2 49 VBG pH 7.38 VBG pCO2 46 VBG HCO3 25.7 VBG Total CO2 28.6 H VBG O2 Sat (Calc) 85.2 H VBG Base Excess 1.5 VBG Potassium 4.0 Glucose 97 Lactate 1.5 Sodium 141 141.0 Potassium 3.9 Chloride 108 H 107.0 Carbon Dioxide 27 Anion Gap 10 BUN 18 Creatinine 0.8 Est GFR ( Amer) > 60 Est GFR (Non-Af Amer) > 60 Random Glucose 96 Calcium 8.7 Total Bilirubin 0.3 AST 66 H ALT 56 Alkaline Phosphatase 189 H D Troponin I 0.0150 NT-Pro-B Natriuret Pep 96.8 Total Protein 6.4 Albumin 3.0 L D Globulin 3.4 Albumin/Globulin Ratio 0.9 L Venous Blood Potassium 4.0 - Imaging and Cardiology Chest x-ray Status: Report reviewed by me (see report) Assessment & Plan (1) Cellulitis Status: Acute (2) Pneumonia Status: Acute (3) Aortic systolic murmur on examination Status: Acute (4) Back pain Status: Acute - Assessment and Plan (Free Text) Plan: PLAN; PANCULTURE. ESR CRP PROBNP aTYPICAL TITERS. mrsa SCREEN. SPUTUM gRAM STAIN AND CULTURE. START iv rOCEPHIN 1 G EVERY 12 HOURLY.10/06/18 START iv zITHROMAX 500 MG ONCE A DAY DAILY.10/06/18 START iv VANCOMYCIN 1 G DAILY DAILY 10/06/18 FOLLOW-UP vANCO TROUGH LEVEL PRIOR TO THE THIRD DOSE AND KEEP IT BETWEEN 10 AND 20 MG/ML. F/U DUPLEX VENOUS STUDIES WE'LL FOLLOW ALONG WITH YOU AND MAKE FURTHER RECOMMENDATIONS NEEDED.
[2018-10-07 05:40] LABS: BASO # 0.1 K/uL (0.0-0.2); EOS # 1.1 K/uL (0.0-0.7); EOS % 16.1 % (0.0-4.0); HEMOGLOBIN 12.1 g/dL (12.0-18.0); LYMPH # 0.9 K/uL (1.0-4.3); LYMPH % 12.3 % (20.0-40.0); MEAN CELL VOLUME 92.8 fL (80.0-94.0); MEAN CORPUSCULAR HEMOGLOBIN 30.5 pg (27.0-31.0); MEAN CORPUSCULAR HGB CONC 32.8 g/dL (33.0-37.0); MEAN PLATELET VOLUME 9.7 fL (7.2-11.7); MONO # 0.6 K/uL (0.0-0.8); MONO % 8.2 % (0.0-10.0); NEUT # 4.3 K/uL (1.8-7.0); NEUT % 61.4 % (50.0-75.0); NRBC % 0.1 % (0.0-2.0); RBC 3.97 Mil/uL (4.40-5.90); RED CELL DISTRIBUTION WIDTH 14.7 % (11.5-14.5); WHITE BLOOD COUNT 7.1 K/uL (4.8-10.8)
[2018-10-07 06:10] LABS: ALB/GLOB RATIO 0.8 (1.0-2.1); ALBUMIN 2.2 g/dL (3.5-5.0); ALT/SGPT 56 U/L (21-72); AST/SGOT 59 U/L (17-59); BLOOD UREA NITROGEN 20 mg/dL (9-20); CALCIUM 7.9 mg/dl (8.6-10.4); GFR NON-AFRICAN AMERICAN > 60
[2018-10-07] MEDS: Enoxaparin 40 mg Syringe SC SCH (09:43)
[2018-10-07] MEDS ORDERED: Azithromycin 500 MG in Sodium Chloride 0.9% 250 ML IVPB SCH (10:00)
--- NOTE | 2018-10-07 11:17 | CP.PCM.PN ---
Subjective - Date & Time of Evaluation Date of Evaluation: 10/07/18 Time of Evaluation: 11:15 - Subjective Subjective: CHIEF COMPLAINTS TODAY : Less shortness of breath no chest pain ROS. HEENT : N. Resp : No cough, wheezing ,pleuritic CP ,or hemoptysis Cardio : No anginal CP, PND, orthopnea, palpitation GI : No abd.pain, n/v ,diarrhea or GI bleeding . [employer] : No headache, vertigo, focal deficit. Musculoskel : No joint swelling , Derm : No rash Psych : Normal affect. Ext : No swelling ,calf pain PE. Pt. is alert awake in no distress. V.S As noted in the chart Head ,ear nose,throat and eyes : Normal. Neck : Supple with normal carotids. Lungs: Clear air entry. Basal crackles Heart : S1 & S2 normal with S4. No systolic ejection murmur in the aortic area Abd : Soft non tender with normal bowel sounds. Neuro : Moves all ext. with no localized deficit. Ext : No edema with intact pulses.Non tender calves Derm : No rashes or decubitus ulcer. LABS/RADIOLOGY: ASSESSMENT/PLAN : Check echocardiogram Continue IV antibiotics Objective - Vital Signs/Intake and Output Vital Signs (last 24 hours): Temp Pulse Resp BP Pulse Ox 97.2 F L 78 20 98/51 L 100 10/07/18 07:35 10/07/18 08:43 10/07/18 08:30 10/07/18 08:30 10/07/18 08:30 Intake and Output: 10/06/18 10/07/18 23:59 11:59 Output Total 200 Balance -200 - Medications Medications: Current Medications Amlodipine Besylate (Norvasc) 5 mg PO DAILY [facility] Last Admin: 10/07/18 09:45 Dose: Not Given Enoxaparin Sodium (Lovenox) 40 mg SC DAILY [facility] Last Admin: 10/07/18 09:43 Dose: 40 mg Famotidine (Pepcid) 20 mg PO BID [facility] Last Admin: 10/07/18 09:43 Dose: 20 mg Vancomycin HCl 1 gm/ Sodium (Chloride) 250 mls @ 166.7 mls/hr IVPB Q24H [facility]; Protocol Last Admin: 10/07/18 09:44 Dose: 166.7 mls/hr Ceftriaxone Sodium 1 gm/ (Sodium Chloride) 100 mls @ 100 mls/hr IVPB Q12H [facility]; Protocol Last Admin: 10/07/18 09:44 Dose: 100 mls/hr Azithromycin 500 mg/ Sodium (Chloride) 250 mls @ 250 mls/hr IVPB DAILY [facility]; Protocol Last Admin: 10/07/18 09:44 Dose: 250 mls/hr - Labs Labs: 10/07/18 05:37 10/07/18 05:37 Assessment and Plan (1) Pneumonia Status: Acute (2) Aortic stenosis Status: Acute
--- NOTE | 2018-10-07 13:45 | VASCLAB ---
Date of service: 10/07/2018 PROCEDURE: Lower Extremity Venous Duplex Exam. HISTORY: b/l le edema PRIORS: None. TECHNIQUE: Bilateral common femoral, femoral, popliteal and posterior tibial, peroneal and great saphenous veins were evaluated. Flow was assessed with color Doppler, compressibility, assessment of phasic flow and augmentation response. Report prepared by Sanford Kendrick, BS, RVT FINDINGS: RIGHT: 1. Common Femoral Vein: 1.1. Compressibility - Fully compressible: Thrombus - None : Flow - Phasic: Augmentation -Normal: Reflux - None. 2. Femoral Vein: 2.1. Compressibility - Fully compressible: Thrombus - None : Flow - Phasic: Augmentation -Normal: Reflux - None. 3. Popliteal Vein: 3.1. Compressibility - Fully compressible: Thrombus - None : Flow - Phasic: Augmentation -Normal: Reflux - None. 4. Posterior Tibial Vein: 4.1. Compressibility - Fully compressible: Thrombus - None: Flow - Phasic: Augmentation -Normal: Reflux - None. 5. Peroneal Vein: 5.1. Compressibility - Fully compressible: Thrombus - None: Flow - Phasic: Augmentation -Normal: Reflux - None. 6. Great Saphenous Vein: 6.1. Compressibility - Fully compressible: Thrombus - None: Flow - Phasic: Augmentation - Normal: Reflux - None. LEFT: 1. Common Femoral Vein: 1.1. Compressibility - Fully compressible: Thrombus - None: Flow - Phasic: Augmentation -Normal: Reflux - None. 2. Femoral Vein: 2.1. Compressibility - Fully compressible: Thrombus - None: Flow - Phasic: Augmentation -Normal: Reflux - None. 3. Popliteal Vein: 3.1. Compressibility - Fully compressible: Thrombus - None : Flow - Phasic: Augmentation -Normal: Reflux - None. 4. Posterior Tibial Vein: 4.1. Compressibility - Fully compressible: Thrombus - None: Flow - Phasic: Augmentation -Normal: Reflux - None. 5. Peroneal Vein: 5.1. Compressibility - Fully compressible: Thrombus - None: Flow - Phasic: Augmentation -Normal: Reflux - None. 6. Great Saphenous Vein: 6.1. Compressibility - Fully compressible: Thrombus - None: Flow - Phasic: Augmentation - Normal: Reflux - None. OTHER FINDINGS: Right: None significant. Left: None significant. IMPRESSION: Right: No evidence of deep or superficial vein thrombosis of the right lower extremity. Normal valve function noted of the right side. Left: No evidence of deep or superficial vein thrombosis of the left lower extremity. Normal valve function noted of the left side.
--- NOTE | 2018-10-07 16:36 | CP.PCM.PN ---
Subjective - Date & Time of Evaluation Date of Evaluation: 10/07/18 Time of Evaluation: 16:18 - Subjective Subjective: PGY-1 Medicine H&P for Dr. Zapien's service CC: bilateral leg swelling HPI: Patient is a 68 yo male w/PMH of HTN admitted to hospital for bilateral leg swelling and chronic dry skin. Patient states that this problem occurred after a wasp bite he received in April/May. Soon after he developed a rash in both of his lower extremities starting from the thigh and extending down to the ankle. Patient states the rash went away on its own while he setup an appointment for the clinic downstairs. Patient states he soon had bilateral leg swelling soon which caused him pain. The swelling persisted prompting appointment with clinic downstairs. Patient was referred to hospital for concern of CHF vs cellulits vs DVT. Admits to chronic dry skin. Admits to not moving around prior to leg swelling for no stated reason. Denies fevers, chills, chest pain, sob, n/v, constipation or diarrhea, and dysuria. PMH- HTN PSH- skin biopsy FH- Denies Allergies- NKDA Meds- amlodipine 5mg po daily, Multivitamins Social- Social drinker (1/2 drinks 2x per week), denies etoh use, denies drug use Code- Full Code PMD- [place] Objective - Vital Signs/Intake and Output Vital Signs (last 24 hours): Temp Pulse Resp BP Pulse Ox 98.4 F 64 20 123/70 100 10/07/18 15:00 10/07/18 15:00 10/07/18 15:00 10/07/18 15:00 10/07/18 15:00 Intake and Output: 10/07/18 10/07/18 06:59 18:59 Intake Total 1400 Output Total 200 Balance -200 1400 - Medications Medications: Current Medications Amlodipine Besylate (Norvasc) 5 mg PO DAILY [facility] Last Admin: 10/07/18 09:45 Dose: Not Given Enoxaparin Sodium (Lovenox) 40 mg SC DAILY [facility] Last Admin: 10/07/18 09:43 Dose: 40 mg Famotidine (Pepcid) 20 mg PO BID [facility] Last Admin: 10/07/18 09:43 Dose: 20 mg Ceftriaxone Sodium 1 gm/ (Sodium Chloride) 100 mls @ 100 mls/hr IVPB Q12H [facility]; Protocol Last Admin: 10/07/18 09:44 Dose: 100 mls/hr Azithromycin 500 mg/ Sodium (Chloride) 250 mls @ 250 mls/hr IVPB 0900 [facility]; Protocol Vancomycin HCl 1 gm/ Sodium (Chloride) 250 mls @ 166.7 mls/hr IVPB 1100 [facility]; Protocol Pneumococcal Polyvalent Vaccine (Pneumovax 23 Vaccine) 0.5 ml IM .ONCE ONE Stop: 10/09/18 14:01 - Labs Labs: 10/07/18 05:37 10/07/18 05:37 - Constitutional Appears: Non-toxic, No Acute Distress - Head Exam Head Exam: NORMAL INSPECTION, NORMOCEPHALIC - Eye Exam Eye Exam: EOMI, Normal appearance. absent: Nystagmus, Scleral icterus - ENT Exam ENT Exam: Mucous Membranes Moist - Respiratory Exam Respiratory Exam: Clear to Ausculation Bilateral, NORMAL BREATHING PATTERN. absent: Rales, Rhonchi, Wheezes - Cardiovascular Exam Cardiovascular Exam: REGULAR RHYTHM, +S1, +S2, Murmur. absent: Tachycardia, Irregular Rhythm Additional comments: systolic murmur - GI/Abdominal Exam GI & Abdominal Exam: Soft, Normal Bowel Sounds. absent: Distended, Firm, Guarding, Rigid, Tenderness - Extremities Exam Additional comments: Dry skin extending from thigh to the foot b/l patient picking at skin, noted skin cracks, with skin breakdown noted breakdown to sub q tissue on left lower extremity near malleous region - Neurological Exam Neurological Exam: Alert, Awake, Oriented x3 - Psychiatric Exam Psychiatric exam: Normal Affect, Normal Mood - Skin Skin Exam: Dry, Intact, Normal Color Assessment and Plan - Assessment and Plan (Free Text) Assessment: Patient is a 68 yo male w/ PMH of HTN admitted to hospital bilateral leg swelling and chronic dry skin. Leg swelling (resolved) 10/06 Duplex of DVT negative Echo pending; no other cx signs of CHF likely 2/2 venous insufficiency in setting of patient being sedentary at home possible cellulitis in the setting of picking at dry skin- continue IV vanc 1gm in NS 250ml daily albumin low, added supplments for increased protein intake Dry skin Hydrocortisone 1% cream topical bid Consider podiatry input if not improving Possible PNA 10/06 Cxray- ground glass opacities concerning for PNA continue IV ceft/azith consider discharge in setting of afebrile, no cough, no leukocytosis noted HTN amlodipine 10mg po daily DVT ppx: Lovenox 40mg sc daily GI ppx: Lactobacillus 1 cap po bid PGY-1 [facility] discussed w/ Dr. Zapien
--- NOTE | 2018-10-07 19:41 | CP.PCM.PN ---
Subjective - Date & Time of Evaluation Date of Evaluation: 10/07/18 Time of Evaluation: 19:41 - Subjective Subjective: AFEBRILE, PT DENIES COUGH OR EXPECTORATION. C/O VERY DRY SKIN AND RASH LE X 3 WEEKS. STATES HE HAD A 'WASP/ ? INSECT - BITE' NEAR THE RT EYE AND DEV SWELLING OF THE RT SIDE FACE AND THEN DEVELOPED A RASH BOTH LE WHICH WAS GETTING WORSE AND [facility]. DENIES CODY/OR RASH IN GROIN OR HANDS /OR GENITALS DENIES ANY DISCHARGE OR GENITAL ULCER LABS REVIEWED DUPLEX VENOUS STUDIES LE -VE. PROBNP N Objective - Vital Signs/Intake and Output Vital Signs (last 24 hours): Temp Pulse Resp BP Pulse Ox 98.4 F 58 L 20 123/70 100 10/07/18 15:00 10/07/18 18:19 10/07/18 15:00 10/07/18 15:00 10/07/18 15:00 Intake and Output: 10/07/18 10/08/18 18:59 06:59 Intake Total 1400 Balance 1400 - Medications Medications: Current Medications Amlodipine Besylate (Norvasc) 5 mg PO DAILY [facility] Last Admin: 10/07/18 09:45 Dose: Not Given Emollient Ointment (Vaseline Oint) 5 gm TOP DAILY [facility] Enoxaparin Sodium (Lovenox) 40 mg SC DAILY [facility] Last Admin: 10/07/18 09:43 Dose: 40 mg Hydrocortisone (Cortizone 1% Cream) 1 gm TOP BID [facility] Ceftriaxone Sodium 1 gm/ (Sodium Chloride) 100 mls @ 100 mls/hr IVPB Q12H [facility]; Protocol Last Admin: 10/07/18 09:44 Dose: 100 mls/hr Azithromycin 500 mg/ Sodium (Chloride) 250 mls @ 250 mls/hr IVPB 0900 [facility]; Protocol Vancomycin HCl 1 gm/ Sodium (Chloride) 250 mls @ 166.7 mls/hr IVPB 1100 [facility]; Protocol Lactobacillus Acidophilus (Bacid Acidophilus) 1 cap PO BID [facility] Pneumococcal Polyvalent Vaccine (Pneumovax 23 Vaccine) 0.5 ml IM .ONCE ONE Stop: 10/09/18 14:01 - Labs Labs: 10/07/18 05:37 10/07/18 05:37 - Constitutional Appears: No Acute Distress - Head Exam Head Exam: NORMOCEPHALIC - Eye Exam Eye Exam: EOMI - ENT Exam ENT Exam: Normal Oropharynx - Neck Exam Neck Exam: Normal Inspection. absent: Lymphadenopathy - Respiratory Exam Respiratory Exam: Prolonged Expiratory Phase, NORMAL BREATHING PATTERN - Cardiovascular Exam Cardiovascular Exam: REGULAR RHYTHM, +S1, +S2, Murmur (+VE SYSTOLIC MURMUR GRADE 2/4) - GI/Abdominal Exam GI & Abdominal Exam: Soft, Normal Bowel Sounds - Exam Exam: absent: Uretheral Discharge - Extremities Exam Extremities Exam: Pedal Edema (+VE ERYTHEMA WITH XEROSIS OF THE SKIN LE.). absent: Calf Tenderness Assessment and Plan (1) Cellulitis Status: Acute (2) Pneumonia Status: Acute (3) Aortic systolic murmur on examination Status: Acute - Assessment and Plan (Free Text) Plan: CONTINUE iv ROCEPHIN 1 G EVERY 12 HOURLY.10/06/18 CONTINUE iv zITHROMAX 500 MG ONCE A DAY DAILY.10/06/18 CONTINUE iv VANCOMYCIN 1 G DAILY DAILY 10/06/18 FOLLOW-UP vANCO TROUGH LEVEL PRIOR TO THE THIRD DOSE AND KEEP IT BETWEEN 10 AND 20 MG/ML. WILL GET LYME SEROLOGY IGM/IGG LYME [facility] /[facility]. CT CHEST W/O CONTRAST TO EVALUATE MULTIFOCAL B/L INFILTRATES. F/U ATYPICAL TITRES
[2018-10-07] MEDS: Lactobacillus Acidophilus 500 MU Cap PO SCH (21:42)
[2018-10-07] MEDS: Hydrocortisone 1% Cream (30 GM) TOP SCH (21:42)
[2018-10-07] MEDS: Petrolatum Oint Foilpak (5 gm) TOP SCH (21:43)
--- NOTE | 2018-10-08 00:10 | CP.PCM.CON ---
Past Patient History - Infectious Disease Hx of Infectious Diseases: None - Past Medical History & Family History Past Medical History?: Yes - Past Social History Smoking Status: Never Smoked - CARDIAC Hx Cardiac Disorders: No - PULMONARY Hx Respiratory Disorders: No - NEUROLOGICAL Hx Neurological Disorder: No - HEENT Hx HEENT Problems: No Other/Comment: with right cyst on lower orbital area - RENAL Hx Chronic Kidney Disease: No - ENDOCRINE/METABOLIC Hx Endocrine Disorders: No - HEMATOLOGICAL/ONCOLOGICAL Hx Anemia: Yes - INTEGUMENTARY Other/Comment: skin problem - MUSCULOSKELETAL/RHEUMATOLOGICAL Hx Falls: No - GASTROINTESTINAL Other/Comment: left inguinal hernia - GENITOURINARY/GYNECOLOGICAL Hx Genitourinary Disorders: No - PSYCHIATRIC Hx Substance Use: No - SURGICAL HISTORY Hx Surgeries: Yes Hx Gastric Bypass Surgery: Yes (done 1990) - ANESTHESIA Hx Anesthesia: Yes Hx Anesthesia Reactions: No Hx Malignant Hyperthermia: No Meds Allergies/Adverse Reactions: Allergies Allergy/AdvReac Type Severity Reaction Status Date / Time No Known Allergies Allergy Verified 05/10/18 10:45 - Medications Medications: Current Medications Amlodipine Besylate (Norvasc) 5 mg PO DAILY [facility] Last Admin: 10/07/18 09:45 Dose: Not Given Emollient Ointment (Vaseline Oint) 5 gm TOP DAILY [facility] Last Admin: 10/07/18 21:43 Dose: 5 gm Enoxaparin Sodium (Lovenox) 40 mg SC DAILY [facility] Last Admin: 10/07/18 09:43 Dose: 40 mg Hydrocortisone (Cortizone 1% Cream) 1 gm TOP BID [facility] Last Admin: 10/07/18 21:42 Dose: 1 applic Ceftriaxone Sodium 1 gm/ (Sodium Chloride) 100 mls @ 100 mls/hr IVPB Q12H [facility]; Protocol Last Admin: 10/07/18 21:47 Dose: 100 mls/hr Azithromycin 500 mg/ Sodium (Chloride) 250 mls @ 250 mls/hr IVPB 0900 TAISHA; Protocol Vancomycin HCl 1 gm/ Sodium (Chloride) 250 mls @ 166.7 mls/hr IVPB 1100 [facility]; Protocol Lactobacillus Acidophilus (Bacid Acidophilus) 1 cap PO BID [facility] Last Admin: 10/07/18 21:42 Dose: 1 cap Pneumococcal Polyvalent Vaccine (Pneumovax 23 Vaccine) 0.5 ml IM .ONCE ONE Stop: 10/09/18 14:01 Results - Vital Signs Recent Vital Signs: Last Vital Signs Temp 98.4 F 10/07/18 15:00 Pulse 58 L 10/07/18 18:19 Resp 20 10/07/18 15:00 BP 123/70 10/07/18 15:00 Pulse Ox 100 10/07/18 15:00 - Labs Result Diagrams: 10/07/18 05:37 10/07/18 05:37 Labs: Laboratory Results - last 24 hr 10/07/18 10/07/18 10/07/18 05:37 05:37 12:20 WBC 7.1 RBC 3.97 L Hgb 12.1 Hct 36.9 MCV 92.8 MCH 30.5 MCHC 32.8 L RDW 14.7 H Plt Count 191 MPV 9.7 Neut % (Auto) 61.4 Lymph % (Auto) 12.3 L [place] % (Auto) 8.2 Eos % (Auto) 16.1 H Baso % (Auto) 2.0 Neut # (Auto) 4.3 Lymph # (Auto) 0.9 L [place] # (Auto) 0.6 Eos # (Auto) 1.1 H Baso # (Auto) 0.1 Sodium 139 Potassium 4.0 Chloride 109 H Carbon Dioxide 28 Anion Gap 7 L BUN 20 Creatinine 0.8 Est GFR ( Amer) > 60 Est GFR (Non-Af Amer) > 60 POC Glucose (mg/dL) Random Glucose 68 L D Calcium 7.9 L Total Bilirubin 0.3 AST 59 ALT 56 Alkaline Phosphatase 133 H D Total Protein 5.1 L Albumin 2.2 L D Globulin 2.9 Albumin/Globulin Ratio 0.8 L Influenza Typ A,B (EIA) Negative for flu a/b 10/07/18 10/07/18 15:58 21:11 WBC RBC Hgb Hct MCV MCH MCHC RDW Plt Count MPV Neut % (Auto) Lymph % (Auto) [place] % (Auto) Eos % (Auto) Baso % (Auto) Neut # (Auto) Lymph # (Auto) [place] # (Auto) Eos # (Auto) Baso # (Auto) Sodium Potassium Chloride Carbon Dioxide Anion Gap BUN Creatinine Est GFR ( Amer) Est GFR (Non-Af Amer) POC Glucose (mg/dL) 117 H 108 Random Glucose Calcium Total Bilirubin AST ALT Alkaline Phosphatase Total Protein Albumin Globulin Albumin/Globulin Ratio Influenza Typ A,B (EIA)
[2018-10-08 07:29] LABS: BASO % 0.5 % (0.0-2.0); EOS # 1.1 K/uL (0.0-0.7); EOS % 25.7 % (0.0-4.0); HEMOGLOBIN 13.2 g/dL (12.0-18.0); LYMPH # 0.6 K/uL (1.0-4.3); LYMPH % 14.9 % (20.0-40.0); MEAN CELL VOLUME 93.8 fL (80.0-94.0); MEAN CORPUSCULAR HEMOGLOBIN 30.9 pg (27.0-31.0); MEAN CORPUSCULAR HGB CONC 32.9 g/dL (33.0-37.0); MEAN PLATELET VOLUME 9.5 fL (7.2-11.7); MONO # 0.4 K/uL (0.0-0.8); MONO % 8.6 % (0.0-10.0); NEUT # 2.2 K/uL (1.8-7.0); NEUT % 50.3 % (50.0-75.0); NRBC % 0.1 % (0.0-2.0); PLATELET COUNT 198 K/uL (130-400); RBC 4.27 Mil/uL (4.40-5.90); RED CELL DISTRIBUTION WIDTH 14.9 % (11.5-14.5); WHITE BLOOD COUNT 4.3 K/uL (4.8-10.8)
[2018-10-08 08:00] LABS: ALB/GLOB RATIO 0.8 (1.0-2.1); ALBUMIN 2.6 g/dL (3.5-5.0); ALT/SGPT 62 U/L (21-72); AST/SGOT 65 U/L (17-59); BLOOD UREA NITROGEN 13 mg/dL (9-20); CALCIUM 8.4 mg/dl (8.6-10.4); GFR NON-AFRICAN AMERICAN > 60
[2018-10-08 08:35] VITALS: RESP 20
[2018-10-08] MEDS ORDERED: Azithromycin 500 MG in Sodium Chloride 0.9% 250 ML IVPB SCH (09:00)
[2018-10-08 09:17] LABS: EOSINOPHIL 29 % (0-4); LYMPHOCYTE 15 % (20-40); MONOCYTE 5 % (0-10); NEUTROPHIL 51 % (50-75); PLATELET ESTIMATE NORMAL (NORMAL); TOTAL CELLS COUNTED 100
[2018-10-08 09:18] LABS: ANISOCYTOSIS SLIGHT; HYPOCHROMIC SLIGHT; LARGE PLATELETS PRESENT; POLYCHROMIC SLIGHT; TOXIC GRANULATION PRESENT
[2018-10-08] MEDS: Hydrocortisone 1% Cream (30 GM) TOP SCH ×2 (09:24→17:44)
[2018-10-08] MEDS: Enoxaparin 40 mg Syringe SC SCH (09:24)
[2018-10-08] MEDS: Lactobacillus Acidophilus 500 MU Cap PO SCH ×2 (09:24→17:43)
[2018-10-08 09:25] LABS: ERYTHROCYTE SEDIMENTATION RATE 32 mm/hr (0-15)
[2018-10-08] MEDS: Petrolatum Oint Foilpak (5 gm) TOP SCH (09:25)
--- NOTE | 2018-10-08 09:45 | CARD ---
APPROVED REPORT Date of service: 10/07/2018 EXAM: LIMITED Two-dimensional and M-mode echocardiogram. Other Information Quality : GoodRhythm : INDICATION follow up aortic stenosis 2D DIMENSIONS LVOT Diameter2.3 (1.8-2.4cm) M-Mode DIMENSIONS RVDd1.04 (2.1-3.2cm)Left Atrium (MM)3.10 (2.5-4.0cm) Aortic Root3.35 (2.2-3.7cm)Aortic Cusp Exc.0.95 (1.5-2.0cm) Aortic Valve AoV Peak Vuvfnden261.2cm/sAoV VTI86.8cmAO Peak GR.43mmHg LVOT Peak Yjccjzxa55.3cm/sLVOT VTI25.08cmAO Mean GR.27mmHg SAMUEL (VMAX)1.39is0EZQ (VTI)1.18cm2 Mitral Valve E/A ratio0.0 TDI E/Lateral E'0.0E/Medial E'0.0 LEFT VENTRICLE The left ventricle is normal size. There is normal left ventricular wall thickness. Left ventricle systolic function is normal. The Ejection Fraction is within normal limits. There is normal LV segmental wall motion. The left ventricular diastolic function is normal. No left ventricle thrombus noted on this study. RIGHT VENTRICLE The right ventricle is normal size. There is normal right ventricular wall thickness. The right ventricular systolic function is normal. ATRIA The left atrium size is normal. The right atrium size is normal. The interatrial septum is intact with no evidence for an atrial septal defect. AORTIC VALVE The aortic valve is moderately thickened. There is mild aortic regurgitation. Calculated aortic valve area is 1.18 cm2 with maximum pressure gradient of 43 mmHg and mean pressure gradient of 27 mmHg. There is moderate valvular aortic stenosis. MITRAL VALVE The posterior mitral valve leaflet appears thickened, but open well. There is no evidence of mitral valve prolapse. There is no mitral valve stenosis. There is no mitral valve regurgitation noted. TRICUSPID VALVE The tricuspid valve is normal in structure. There is no tricuspid valve regurgitation noted. There is no tricuspid valve prolapse or vegetation. There is no tricuspid valve stenosis. PULMONIC VALVE The pulmonic valve is not well visualized. GREAT VESSELS The aortic root is normal in size. PERICARDIAL EFFUSION There is no significant pericardial effusion. <Conclusion> Left ventricle systolic function is normal. The Ejection Fraction is within normal limits. There is mild aortic regurgitation. There is moderate valvular aortic stenosis. There is no mitral valve regurgitation noted. There is no tricuspid valve regurgitation noted.
--- NOTE | 2018-10-08 13:37 | CT ---
CT chest HISTORY: Multifocal pneumonia. Comparison: X-ray dated 10/06/2018 TECHNIQUE: Multiple contiguous axial images were performed through the chest without the use of intravenous contrast. Subsequently, sagittal and coronal reformatted images were obtained. This CT exam was performed using one or more of the following dose reduction techniques: Automated exposure control, adjustment of the mA and/or kV according to patient size, and/or use of iterative reconstruction technique. Findings: Right lung: Prominent multifocal scattered areas of airspace consolidation seen throughout the right lung in all lobes. For example in the inferior aspect of the right upper lobe there is prominent dense multifocal patchy consolidation as demonstrated on series 3, image 43. Additional consolidative changes seen within right middle lobe on series 3, image 57. Within the posterior aspect of right middle lobe best seen on series 3, image 63 there is focal masslike consolidation measuring 1.4 centimeters extending to the level of the fissure. Prominent scattered areas of multifocal consolidation are noted within the lower lobe measuring up to 3.3 centimeters on series 3, image 84 and up to 2.9 centimeters on series 3, image 70. Additional milder areas of consolidative opacification. Left lung: Multifocal areas of scattered airspace consolidation throughout the left lung in all visualized lobes. For example, patchy consolidative opacification is seen within the inferior left upper lobe on series 3, image 52. In addition, consolidative opacifications are seen measuring 2.8 centimeters within the posterior aspect of the left lower lobe on series 3, image 93 with adjacent areas of consolidation seen superiorly in the left lower lobe. Trachea thru central airways are patent. Shotty bilateral axillary adenopathy. Heterogeneity of the thyroid gland. Left paratracheal lymph node measures 1.5 centimeters. Precarinal lymph node measures 1.1 centimeters. Limited evaluation for hilar adenopathy given lack of contrast. Prominent right hilar lymph node measures 1.4 centimeters. Atherosclerotic calcification and plaque within the aorta. Ascending aorta measures up to 3.7 centimeters. Aortic arch measures up 2.4 centimeters. Valvular as well as coronary arterial calcifications. No pleural or pericardial effusion. Prominent liver. Prior cholecystectomy. Spleen is preserved. Adrenal glands are preserved. Mild fatty atrophy of the pancreas. Small hiatal hernia. Distended stomach with postsurgical changes. Postsurgical changes in the upper abdominal bowel. Suggestion of an IVC filter. Severe fecal retention in the colon. Upper pole 5 millimeter nonobstructive calculus in the left kidney. Prominently distended bowel in the left upper abdomen likely related to postsurgical change. Degenerative changes in the spine. Impression: 1. Prominent multifocal scattered areas of airspace consolidation seen throughout both lungs within all the visualized lung lobes concerning for a multifocal infectious and/or inflammatory process. Clinical correlation. 2. In addition, there is a more focal area of masslike consolidation within the right middle lobe of the lung as described. Post treatment interval follow-up is recommended to ensure resolution. Alternatively, follow-up CT and/or PET-CT an interval date is recommended. 3. Left paratracheal lymph node measures 1.5 centimeters. Precarinal lymph node measures 1.1 centimeters. Limited evaluation for hilar adenopathy given lack of contrast. Prominent right hilar lymph node measures 1.4 centimeters. 4. Additional findings as above.
--- NOTE | 2018-10-08 19:43 | CP.PCM.PN ---
Subjective - Date & Time of Evaluation Date of Evaluation: 10/08/18 Time of Evaluation: 09:45 - Subjective Subjective: Medicine progress note ( Dr. Amado Zapien's service) Patient was seen and examined at bedside. Patient reports that he is doing well and denies any acute issues or complaints. Objective - Vital Signs/Intake and Output Vital Signs (last 24 hours): Temp Pulse Resp BP Pulse Ox 98 F 60 20 115/70 99 10/08/18 08:34 10/08/18 16:39 10/08/18 15:00 10/08/18 15:00 10/08/18 15:00 Intake and Output: 10/08/18 10/09/18 18:59 06:59 Intake Total 480 Balance 480 - Medications Medications: Current Medications Amlodipine Besylate (Norvasc) 5 mg PO DAILY [facility] Last Admin: 10/08/18 09:24 Dose: 5 mg Emollient Ointment (Vaseline Oint) 5 gm TOP DAILY [facility] Last Admin: 10/08/18 09:25 Dose: Not Given Enoxaparin Sodium (Lovenox) 40 mg SC DAILY [facility] Last Admin: 10/08/18 09:24 Dose: 40 mg Hydrocortisone (Cortizone 1% Cream) 1 gm TOP BID [facility] Last Admin: 10/08/18 17:44 Dose: Not Given Lactobacillus Acidophilus (Bacid Acidophilus) 1 cap PO BID [facility] Last Admin: 10/08/18 17:43 Dose: 1 cap Pneumococcal Polyvalent Vaccine (Pneumovax 23 Vaccine) 0.5 ml IM .ONCE ONE Stop: 10/09/18 14:01 - Labs Labs: 10/08/18 07:14 10/08/18 07:14 - Constitutional Appears: Well, No Acute Distress - Head Exam Head Exam: ATRAUMATIC, NORMAL INSPECTION - Eye Exam Eye Exam: EOMI - ENT Exam ENT Exam: Mucous Membranes Moist - Respiratory Exam Respiratory Exam: Clear to Ausculation Bilateral, NORMAL BREATHING PATTERN. absent: Prolonged Expiratory Phase, Rhonchi, Wheezes, Respiratory Distress - Cardiovascular Exam Cardiovascular Exam: REGULAR RHYTHM, +S1, +S2, Murmur Additional comments: systolic murmur at the right sternal border - GI/Abdominal Exam GI & Abdominal Exam: Soft, Normal Bowel Sounds. absent: Distended, Firm, Guarding, Rigid, Tenderness - Neurological Exam Neurological Exam: Alert, Awake, Oriented x3 - Psychiatric Exam Psychiatric exam: Normal Affect - Skin Skin Exam: Dry Additional comments: Dry skin extending from thigh to the foot b/l patient picking at skin, noted skin cracks, with skin breakdown noted breakdown to sub q tissue on left lower extremity near malleous region Assessment and Plan (1) Leg swelling Assessment & Plan: Resolved 10/06 Duplex of DVT negative Echo: Left ventricle systolic function is normal. The ejection fraction is with in normal range. There is mild AR. There is moderate valvular aortic stenosis. There is no MR OR TR noted. likely 2/2 venous insufficiency in setting of patient being sedentary at home Not Cellulitis as erythema resolves with bilateral leg elevation Status: Acute (2) Aortic stenosis Assessment & Plan: Maintenance [employer], Dr. Toledo on board * F/u recommendation * Echo: Left ventricle systolic function is normal. The ejection fraction is within normal range. There is mild AR. There is moderate valvular aortic stenosis. There is no MR OR TR noted. Status: Acute (3) Dry skin dermatitis Assessment & Plan: Vaseline ointment Cetaphil moisturizer Hydrocortisone 1% cream Refer to director speech for a second opinion Status: Acute (4) Hypertension Assessment & Plan: Norvasc 5mg PO daily Status: Acute (5) Prophylactic measure Assessment & Plan: GI:Not indicated DVT: Lovenox 40mg SC daily Disposition: Plans for discharge tomorrow and follow with [facility] and second dermatology opinion All plans and management discussed with Dr. Amado Zapien Status: Acute
--- NOTE | 2018-10-08 19:48 | CP.PCM.CON ---
History of Present Illness - History of Present Illness History of Present Illness: 68yo male with history of hypertension, aortic valve stenosis, and a skin rash (per Dr. Flores) is sent to ER by his PMD for evaluation due to bilateral lower extremity edema. Patient also reports redness to his bilateral lower legs. Per Dr. Flores, she is concerned about cellulitis vs. DVT vs. cardiac issues. Patient states the redness has been present for the past 2-3 weeks with the lower extremity edema. Patient otherwise denies any chest pain, shortness of breath, dyspnea on exertion, leg pain, fever, chills, night sweats. No additional complaints. Chief Complaint (Nursing): Weakness/Neurological Deficit History Per: Patient History/Exam Limitations: no limitations - Medical History PMH: Anemia, Back Problems Denies: Chronic Kidney Disease Surgical History: No Surg Hx Family History: States: Unknown Family Hx - Social History Hx Tobacco Use: No Hx Alcohol Use: Yes Hx Substance Use: No - Immunization History Hx Tetanus Toxoid Vaccination: No Hx Influenza Vaccination: No Hx Pneumococcal Vaccination: No Review Of Systems Except As Marked, All Systems Reviewed And Found Negative. Constitutional: Negative for: Fever, Chills, Sweats Eyes: Negative for: Pain ENT: Negative for: Ear Pain Cardiovascular: Negative for: Chest Pain Respiratory: Negative for: Shortness of Breath, SOB with Excertion Gastrointestinal: Negative for: Nausea, Vomiting, Abdominal Pain, Constipation, Melena, Hematochezia Genitourinary: Negative for: Dysuria, Frequency, Hematuria Musculoskeletal: Positive for: Other (leg swelling bilaterally, redness to bilateral lower legs). Negative for: Neck Pain, Shoulder Pain, Back Pain Skin: Positive for: Rash Neurological: Negative for: Weakness, Numbness Psych: Negative for: Anxiety, Depression Physical Exam - Physical Exam Appears: Non-toxic, No Acute Distress Skin: Normal Color, Warm, Dry, No Rash, Other (skin changes bilateral lower extremities. ) Head: Atraumatic, Normacephalic Eye(s): bilateral: Normal Inspection Nose: Normal Oral Mucosa: Moist Tongue: Normal Appearing Lips: Normal Appearing Neck: Normal ROM, Supple Chest: Symmetrical Cardiovascular: Rhythm Regular Respiratory: Normal Breath Sounds, No Decreased Breath Sounds, No Wheezing Gastrointestinal/Abdominal: Normal Exam Back: Normal Inspection Extremity: Normal ROM, Pedal Edema (1+ pitting edema bilaterally), No Calf Tenderness, Capillary Refill (< 2 seconds) Pulses: Left Dorsalis Pedis: Normal, Right Dorsalis Pedis: Normal Neurological/Psych: Oriented x3, Normal Speech, Normal Cognition Gait: Steady Past Patient History - Infectious Disease Hx of Infectious Diseases: None - Past Medical History & Family History Past Medical History?: Yes - Past Social History Smoking Status: Never Smoked - CARDIAC Hx Cardiac Disorders: No - PULMONARY Hx Respiratory Disorders: No - NEUROLOGICAL Hx Neurological Disorder: No - HEENT Hx HEENT Problems: No Other/Comment: with right cyst on lower orbital area - RENAL Hx Chronic Kidney Disease: No - ENDOCRINE/METABOLIC Hx Endocrine Disorders: No - HEMATOLOGICAL/ONCOLOGICAL Hx Anemia: Yes - INTEGUMENTARY Other/Comment: skin problem - MUSCULOSKELETAL/RHEUMATOLOGICAL Hx Falls: No - GASTROINTESTINAL Other/Comment: left inguinal hernia - GENITOURINARY/GYNECOLOGICAL Hx Genitourinary Disorders: No - PSYCHIATRIC Hx Substance Use: No - SURGICAL HISTORY Hx Surgeries: Yes Hx Gastric Bypass Surgery: Yes (done 1990) - ANESTHESIA Hx Anesthesia: Yes Hx Anesthesia Reactions: No Hx Malignant Hyperthermia: No Meds Allergies/Adverse Reactions: Allergies Allergy/AdvReac Type Severity Reaction Status Date / Time No Known Allergies Allergy Verified 05/10/18 10:45 - Medications Medications: Current Medications Amlodipine Besylate (Norvasc) 5 mg PO DAILY [facility] Last Admin: 10/08/18 09:24 Dose: 5 mg Emollient Ointment (Vaseline Oint) 5 gm TOP DAILY [facility] Last Admin: 10/08/18 09:25 Dose: Not Given Enoxaparin Sodium (Lovenox) 40 mg SC DAILY [facility] Last Admin: 10/08/18 09:24 Dose: 40 mg Hydrocortisone (Cortizone 1% Cream) 1 gm TOP BID [facility] Last Admin: 10/08/18 17:44 Dose: Not Given Lactobacillus Acidophilus (Bacid Acidophilus) 1 cap PO BID [facility] Last Admin: 10/08/18 17:43 Dose: 1 cap Pneumococcal Polyvalent Vaccine (Pneumovax 23 Vaccine) 0.5 ml IM .ONCE ONE Stop: 10/09/18 14:01 Results - Vital Signs Recent Vital Signs: Last Vital Signs Temp 98 F 10/08/18 08:34 Pulse 60 10/08/18 16:39 Resp 20 10/08/18 15:00 BP 115/70 10/08/18 15:00 Pulse Ox 99 10/08/18 15:00 - Labs Result Diagrams: 10/08/18 07:14 10/08/18 07:14 Labs: Laboratory Results - last 24 hr 10/07/18 10/08/18 10/08/18 21:11 07:14 07:14 WBC 4.3 L RBC 4.27 L Hgb 13.2 Hct 40.0 MCV 93.8 MCH 30.9 MCHC 32.9 L RDW 14.9 H Plt Count 198 MPV 9.5 Neut % (Auto) 50.3 Lymph % (Auto) 14.9 L [place] % (Auto) 8.6 Eos % (Auto) 25.7 H Baso % (Auto) 0.5 Neut # (Auto) 2.2 Lymph # (Auto) 0.6 L [place] # (Auto) 0.4 Eos # (Auto) 1.1 H Baso # (Auto) 0.0 Neutrophils % (Manual) 51 Lymphocytes % (Manual) 15 L Monocytes % (Manual) 5 Eosinophils % (Manual) 29 H Toxic Granulation Present Platelet Estimate Normal Large Platelets Present Polychromasia Slight Hypochromasia (manual) Slight Anisocytosis (manual) Slight Macrocytosis (manual) Slight ESR 32 H Sodium 141 Potassium 3.9 Chloride 108 H Carbon Dioxide 30 Anion Gap 7 L BUN 13 Creatinine 0.7 L Est GFR ( Amer) > 60 Est GFR (Non-Af Amer) > 60 POC Glucose (mg/dL) 108 Random Glucose 71 L Calcium 8.4 L Total Bilirubin 0.2 AST 65 H ALT 62 Alkaline Phosphatase 158 H C-React Prot High Sens Total Protein 5.7 L Albumin 2.6 L Globulin 3.1 Albumin/Globulin Ratio 0.8 L TSH 3rd Generation 3.95 10/08/18 07:14 WBC RBC Hgb Hct MCV MCH MCHC RDW Plt Count MPV Neut % (Auto) Lymph % (Auto) [place] % (Auto) Eos % (Auto) Baso % (Auto) Neut # (Auto) Lymph # (Auto) [place] # (Auto) Eos # (Auto) Baso # (Auto) Neutrophils % (Manual) Lymphocytes % (Manual) Monocytes % (Manual) Eosinophils % (Manual) Toxic Granulation Platelet Estimate Large Platelets Polychromasia Hypochromasia (manual) Anisocytosis (manual) Macrocytosis (manual) ESR Sodium Potassium Chloride Carbon Dioxide Anion Gap BUN Creatinine Est GFR ( Amer) Est GFR (Non-Af Amer) POC Glucose (mg/dL) Random Glucose Calcium Total Bilirubin AST ALT Alkaline Phosphatase C-React Prot High Sens 12.74 H Total Protein Albumin Globulin Albumin/Globulin Ratio TSH 3rd Generation Assessment & Plan - Assessment and Plan (Free Text) Assessment: Patient is a 68 yo male w/ PMH of HTN admitted to hospital bilateral leg swelling and chronic dry skin. Leg swelling (resolved) 10/06 Duplex of DVT negative Echo: Moderate to severe likely 2/2 venous insufficiency in setting of patient being sedentary at home possible cellulitis in the setting of picking at dry skin- continue IV vanc 1gm in NS 250ml daily albumin low, added supplments for increased protein intake Dry skin Hydrocortisone 1% cream topical bid Consider podiatry input if not improving Possible PNA 10/06 Cxray- ground glass opacities concerning for PNA continue IV ceft/azith consider discharge in setting of afebrile, no cough, no leukocytosis noted HTN amlodipine 10mg po daily DVT ppx: Lovenox 40mg sc daily GI ppx: Lactobacillus 1 cap po bid Moderate : Medical management for now
--- NOTE | 2018-10-08 23:04 | CP.PCM.PN ---
Subjective - Date & Time of Evaluation Date of Evaluation: 10/08/18 Time of Evaluation: 23:04 - Subjective Subjective: AFEBRILE, NO ACUTE EVENTS. DENIES COUGH/OR SOB. LE EDEMA /ERYTHEMA +VE +DRY CRACKED SKIN/RASH IMPROVING CT CHEST -DONE;10/07/18 multifocal areas off bilateral airspace consolidative changes both lungs .+ve shotty mediastinal nodes1.8cm, left paratracheal , precarinal, and right hilar lymph nodes noted ( see full report ) Objective - Vital Signs/Intake and Output Vital Signs (last 24 hours): Temp Pulse Resp BP Pulse Ox 98 F 61 20 115/70 99 10/08/18 08:34 10/08/18 20:42 10/08/18 15:00 10/08/18 15:00 10/08/18 15:00 Intake and Output: 10/08/18 10/09/18 18:59 06:59 Intake Total 480 400 Balance 480 400 - Medications Medications: Current Medications Amlodipine Besylate (Norvasc) 5 mg PO DAILY [facility] Last Admin: 10/08/18 09:24 Dose: 5 mg Emollient Ointment (Vaseline Oint) 5 gm TOP DAILY [facility] Last Admin: 10/08/18 09:25 Dose: Not Given Enoxaparin Sodium (Lovenox) 40 mg SC DAILY [facility] Last Admin: 10/08/18 09:24 Dose: 40 mg Hydrocortisone (Cortizone 1% Cream) 1 gm TOP BID [facility] Last Admin: 10/08/18 17:44 Dose: Not Given Lactobacillus Acidophilus (Bacid Acidophilus) 1 cap PO BID [facility] Last Admin: 10/08/18 17:43 Dose: 1 cap Pneumococcal Polyvalent Vaccine (Pneumovax 23 Vaccine) 0.5 ml IM .ONCE ONE Stop: 10/09/18 14:01 - Labs Labs: 10/08/18 07:14 10/08/18 07:14 - Constitutional Appears: No Acute Distress, Chronically Ill - Head Exam Head Exam: NORMAL INSPECTION - Eye Exam Eye Exam: EOMI, PERRL - ENT Exam ENT Exam: Normal Oropharynx - Neck Exam Neck Exam: Normal Inspection - Respiratory Exam Respiratory Exam: Clear to Ausculation Bilateral, NORMAL BREATHING PATTERN - Cardiovascular Exam Cardiovascular Exam: REGULAR RHYTHM, +S1, +S2, Murmur (+ve systolic murmur heard over the precordium.) - GI/Abdominal Exam GI & Abdominal Exam: Soft, Normal Bowel Sounds. absent: Organomegaly - Extremities Exam Extremities Exam: Pedal Edema (B/L LE edema with erythema and dry skin/xerosis p resent). absent: Calf Tenderness - Neurological Exam Neurological Exam: Awake, CN II-XII Intact, Oriented x3, Reflexes Normal - Psychiatric Exam Psychiatric exam: Normal Mood - Skin Skin Exam: Dry, Warm Assessment and Plan (1) Pneumonia Status: Acute (2) Cellulitis Status: Acute (3) Aortic systolic murmur on examination Status: Acute - Assessment and Plan (Free Text) Plan: PLAN; PATIENT PRESENTLY DENIES ANY COUGH OR EXPECTORATION, B/L LE CELLULITUS WITH DRY CRACKED SKIN IMPROVING PATIENT WILL NEED LYMPH NODE BIOPSY /OR FOB R/O OCCULT LYMPHOMA/MALIGNANCY WITH ABNORMAL RESULTS OF THE CT SCAN OF CHEST. SERUM LDH SERUM IGE ( EOSINOPHILIA ) WILL DISCUSS WITH PMD. PRESENTLY OFF ANTIBIOTICS NOTED. OBSERVE FEVER CURVE.
[2018-10-09 07:45] VITALS: BP 125/65; PULSE 65; O2SAT 95
[2018-10-09 08:50] LABS: BASO % 0.2 % (0.0-2.0); EOS # 0.8 K/uL (0.0-0.7); EOS % 8.8 % (0.0-4.0); HEMOGLOBIN 13.5 g/dL (12.0-18.0); LYMPH # 0.8 K/uL (1.0-4.3); LYMPH % 8.1 % (20.0-40.0); MEAN CORPUSCULAR HEMOGLOBIN 30.5 pg (27.0-31.0); MEAN CORPUSCULAR HGB CONC 32.5 g/dL (33.0-37.0); MEAN PLATELET VOLUME 9.9 fL (7.2-11.7); MONO # 0.4 K/uL (0.0-0.8); MONO % 4.2 % (0.0-10.0); NEUT # 7.4 K/uL (1.8-7.0); NEUT % 78.7 % (50.0-75.0); PLATELET COUNT 193 K/uL (130-400); RBC 4.42 Mil/uL (4.40-5.90); RED CELL DISTRIBUTION WIDTH 14.8 % (11.5-14.5)
[2018-10-09 08:55] LABS: WHITE BLOOD COUNT 9.4 K/uL (4.8-10.8)
[2018-10-09 09:13] LABS: ALB/GLOB RATIO 0.8 (1.0-2.1); ALBUMIN 2.6 g/dL (3.5-5.0); ALT/SGPT 69 U/L (21-72); AST/SGOT 94 U/L (17-59); BLOOD UREA NITROGEN 12 mg/dL (9-20); CALCIUM 8.5 mg/dl (8.6-10.4); GFR NON-AFRICAN AMERICAN > 60
--- NOTE | 2018-10-09 09:22 | CP.PCM.DIS ---
Provider - Provider Date of Admission: 10/06/18 18:10 Attending physician: Amado Zapien MD Consults: 10/06/18 18:58 Infectious Disease Consult Routine Comment: Consulting Provider: Hany Mccray Consulting Physician: Hany Mccray Reason for Consult: jennifer pneumonia 10/07/18 16:29 Cardiology Consult Routine Comment: Consulting Provider: Neymar Toledo Consulting Physician: Neymar Toledo Reason for Consult: aortic stenosis Time Spent in preparation of Discharge (in minutes): 40 Diagnosis - Discharge Diagnosis (1) Leg swelling Status: Resolved (2) Aortic stenosis Status: Acute (3) Dry skin dermatitis Status: Acute (4) Hypertension Status: Acute (5) Prophylactic measure Status: Acute Hospital Course - Lab Results Lab Results: Micro Results 10/06/18 16:45 Blood Blood Culture - Preliminary NO GROWTH AFTER 48 HOURS 10/06/18 15:55 Blood Blood Culture - Preliminary NO GROWTH AFTER 48 HOURS 10/07/18 12:36 Naris MRSA Culture (Admit) - Final MRSA NOT DETECTED 10/07/18 20:17 Sputum Gram Stain - Final 10/07/18 20:17 Sputum Sputum Culture - Preliminary NORMAL ORAL CASE Most Recent Lab Values WBC 9.4 K/uL (4.8-10.8) D 10/09/18 08:38 RBC 4.42 Mil/uL (4.40-5.90) 10/09/18 08:38 Hgb 13.5 g/dL (12.0-18.0) 10/09/18 08:38 Hct 41.5 % (35.0-51.0) 10/09/18 08:38 MCV 94.0 fL (80.0-94.0) 10/09/18 08:38 MCH 30.5 pg (27.0-31.0) 10/09/18 08:38 MCHC 32.5 g/dL (33.0-37.0) L 10/09/18 08:38 RDW 14.8 % (11.5-14.5) H 10/09/18 08:38 Plt Count 193 K/uL (130-400) 10/09/18 08:38 MPV 9.9 fL (7.2-11.7) 10/09/18 08:38 Neut % (Auto) 78.7 % (50.0-75.0) H 10/09/18 08:38 Lymph % (Auto) 8.1 % (20.0-40.0) L 10/09/18 08:38 [place] % (Auto) 4.2 % (0.0-10.0) 10/09/18 08:38 Eos % (Auto) 8.8 % (0.0-4.0) H 10/09/18 08:38 Baso % (Auto) 0.2 % (0.0-2.0) 10/09/18 08:38 Neut # (Auto) 7.4 K/uL (1.8-7.0) H 10/09/18 08:38 Lymph # (Auto) 0.8 K/uL (1.0-4.3) L 10/09/18 08:38 [place] # (Auto) 0.4 K/uL (0.0-0.8) 10/09/18 08:38 Eos # (Auto) 0.8 K/uL (0.0-0.7) H 10/09/18 08:38 Baso # (Auto) 0.0 K/uL (0.0-0.2) 10/09/18 08:38 Neutrophils % (Manual) 51 % (50-75) 10/08/18 07:14 Lymphocytes % (Manual) 15 % (20-40) L 10/08/18 07:14 Monocytes % (Manual) 5 % (0-10) 10/08/18 07:14 Eosinophils % (Manual) 29 % (0-4) H 10/08/18 07:14 Toxic Granulation Present 10/08/18 07:14 Platelet Estimate Normal (NORMAL) 10/08/18 07:14 Large Platelets Present 10/08/18 07:14 Polychromasia Slight 10/08/18 07:14 Hypochromasia (manual) Slight 10/08/18 07:14 Anisocytosis (manual) Slight 10/08/18 07:14 Macrocytosis (manual) Slight 10/08/18 07:14 ESR 32 mm/hr (0-15) H 10/08/18 07:14 pO2 49 mm/Hg (30-55) 10/06/18 16:43 VBG pH 7.38 (7.32-7.43) 10/06/18 16:43 VBG pCO2 46 mmHg (40-60) 10/06/18 16:43 VBG HCO3 25.7 mmol/L 10/06/18 16:43 VBG Total CO2 28.6 mmol/L (22-28) H 10/06/18 16:43 VBG O2 Sat (Calc) 85.2 % (40-65) H 10/06/18 16:43 VBG Base Excess 1.5 mmol/L (0.0-2.0) 10/06/18 16:43 VBG Potassium 4.0 mmol/L (3.6-5.2) 10/06/18 16:43 Sodium 141.0 mmol/l (132-148) 10/06/18 16:43 Chloride 107.0 mmol/L (98-107) 10/06/18 16:43 Glucose 97 mg/dl (75-110) 10/06/18 16:43 Lactate 1.5 mmol/L (0.7-2.1) 10/06/18 16:43 Sodium 141 mmol/L (132-148) 10/08/18 07:14 Potassium 3.9 mmol/L (3.6-5.2) 10/08/18 07:14 Chloride 108 mmol/L (98-107) H 10/08/18 07:14 Carbon Dioxide 30 mmol/L (22-30) 10/08/18 07:14 Anion Gap 7 (10-20) L 10/08/18 07:14 BUN 13 mg/dL (9-20) 10/08/18 07:14 Creatinine 0.7 mg/dL (0.8-1.5) L 10/08/18 07:14 Est GFR ( Amer) > 60 10/08/18 07:14 Est GFR (Non-Af Amer) > 60 10/08/18 07:14 POC Glucose (mg/dL) 108 mg/dL (65-110) 10/07/18 21:11 Random Glucose 71 mg/dL (75-110) L 10/08/18 07:14 Calcium 8.4 mg/dl (8.6-10.4) L 10/08/18 07:14 Total Bilirubin 0.2 mg/dL (0.2-1.3) 10/08/18 07:14 AST 65 U/L (17-59) H 10/08/18 07:14 ALT 62 U/L (21-72) 10/08/18 07:14 Alkaline Phosphatase 158 U/L (38-126) H 10/08/18 07:14 Troponin I 0.0150 ng/mL (0.00-0.120) 10/06/18 16:35 C-React Prot High Sens 12.74 mg/L (1.00-3.00) H 10/08/18 07:14 NT-Pro-B Natriuret Pep 96.8 pg/mL (0-900) 10/06/18 16:35 Total Protein 5.7 g/dL (6.3-8.3) L 10/08/18 07:14 Albumin 2.6 g/dL (3.5-5.0) L 10/08/18 07:14 Globulin 3.1 gm/dL (2.2-3.9) 10/08/18 07:14 Albumin/Globulin Ratio 0.8 (1.0-2.1) L 10/08/18 07:14 TSH 3rd Generation 3.95 mIU/L (0.46-4.68) 10/08/18 07:14 Venous Blood Potassium 4.0 mmol/L (3.6-5.2) 10/06/18 16:43 Influenza Typ A,B (EIA) Negative for flu a/b (NEGATIVE) 10/07/18 12:20 - Hospital Course Hospital Course: HPI (As per admission) Patient is a 68 yo male w/PMH of HTN admitted to hospital for bilateral leg swelling and chronic dry skin. Patient states that this problem occurred after a wasp bite he received in . Soon after he developed a rash in both of his lower extremities starting from the thigh and extending down to the ankle. Patient states the rash went away on its own while he setup an appointment for the clinic downstairs. Patient states he soon had bilateral leg swelling soon which caused him pain. The swelling persisted prompting appointment with clinic downstairs. Patient was referred to hospital for concern of CHF vs cellulits vs DVT. Admits to chronic dry skin. Admits to not moving around prior to leg swelling for no stated reason. Denies fevers, chills, chest pain, sob, n/v, constipation or diarrhea, and dysuria. Hospital Course: Patient was admitted with the consideration of bilateral leg swelling with differential for cellulitis and diagnosis of pneumonia via chest x-ray under Dr. Donato's service. Patient's service was transferred to the hospitalist group on 10/07/18 as patient's care has been established in the [facility]. Since initial admission, IDDr. Mccray was consulted for pneumonia and cellulitis and appropriate antibiotics were initiated. However, antibiotics were discontinued as patient was afebrile without leukocytosis and no signs of infection or clinical signs of pneumonia. Review of patient records of chest X-ray noted similar pulmonary pathology as previous chest x-ray from April 2018. Chest CT was ordered with impression as stated below. Over the course of admission, vancomycin was discontinued for LE cellulitis treatment due resolved erythema on bilateral leg elevation on physical examination, which rules out cellulitis. Upon further questioning, patient is found to have severely dry skin and scratches that would have led to similar presentation of cellulitic changes. In addition, skin changes can possibly be a manifestation of pulmonary changes noted on Chest CT. Patient remained medically stable over the course of admission with no acute issues or changes. Patient was discharge with appropriate instructions for medical follow up as well as skin care tips. Pertinent Imaging: (10/06/17) LE Venous Doppler: Negative for DVT (10/07/18)Echo: Left ventricle systolic function is normal. The ejection fraction is within normal range. There is mild AR. There is moderate valvular aortic stenosis. There is no MR OR TR noted. Chest CT (10/07/17): Prominent multifocal scattered areas of airspace consolidation seen throughout both lungs within all the visualized lung lobes concerning for a multifocal infectious and/or inflammatory process. Clinical correlation. 2. In addition, there is a more focal area of masslike consolidation within the right middle lobe of the lung as described. Post treatment interval follow-up is recommended to ensure resolution. Alternatively, follow-up CT and/or PET-CT an interval date is recommended. 3. Left paratracheal lymph node measures 1.5 centimeters. Precarinal lymph node measures 1.1 centimeters. Limited evaluation for hilar adenopathy given lack of contrast. Prominent right hilar lymph node measures 1.[address] unchanged from previous pulmonary imaging. This is a brief summary of event. For a complete course, please refer to the medical records. Discharge Exam - Head Exam Head Exam: NORMAL INSPECTION - Eye Exam Eye Exam: EOMI, Normal appearance - ENT Exam ENT Exam: Mucous Membranes Moist - Respiratory Exam Respiratory Exam: Clear to PA & Lateral, NORMAL BREATHING PATTERN. absent: Decreased Breath Sounds, Prolonged Expiratory Phase, Wheezes, Respiratory Distress - Cardiovascular Exam Cardiovascular Exam: REGULAR RHYTHM, +S1, +S2, Systolic Murmur Additional comments: Systolic murmur in the right sternal border, () - GI/Abdominal Exam GI & Abdominal Exam: Normal Bowel Sounds, Soft. absent: Diminished Bowel Sounds, Distended, Firm, Guarding, Hernia - Extremities Exam Extremities exam: normal inspection - Neurological Exam Neurological exam: Alert, Normal Gait, Oriented x3 - Psychiatric Exam Psychiatric exam: Normal Affect - Skin Skin Exam: Normal Color Additional comments: Dry skin extending from thigh to the foot b/l patient picking at skin, noted skin cracks, with skin breakdown noted breakdown to sub q tissue on left lower extremity near malleous region Discharge Plan - Discharge Medications Prescriptions: amLODIPine [Norvasc] 5 mg PO DAILY #10 tab - Follow Up Plan Condition: GOOD Disposition: HOME/ ROUTINE Additional Instructions: Please discharge patient home Please resume your home medication: -Norvasc 5mg PO daily Please follow up with the [facility] ([phone]) within 1 week of discharge Please obtain another senior engineering manager referral for a second opinion from [facility] Please follow up with Flight Superintendent, Dr. Toledo, for further evaluation of known aortic stenosis on October 28, 2018, Please follow up with Pulmonoloigst, Dr. Cook for likely pulmonary fibrosis noted on Chest CT, Please continue to apply Cetaphil Moisturizer every day after patting yourself dry post shower Please continue with hydration Please return to the hospital if symptoms resumes Please take care Referrals: [facility] [Provider Group] - 7 Days (Please follow up within 1 week of discharge) Presley Cook MD [Staff Provider] - 7 Days (Please follow up with Dr. Cook within a week of discharge to establish care and further evaluation of possible pulmomary fibrosis ) Neymar Toledo MD [Staff Provider] - (Please follow up with Dr. Toledo on October 28, 2018)
[2018-10-09] MEDS: Hydrocortisone 1% Cream (30 GM) TOP SCH (09:26)
[2018-10-09] MEDS: Petrolatum Oint Foilpak (5 gm) TOP SCH (09:27)
[2018-10-09] MEDS: Enoxaparin 40 mg Syringe SC SCH (09:27)
[2018-10-09] MEDS: Lactobacillus Acidophilus 500 MU Cap PO SCH (09:27)
[2018-10-09 10:50] LABS: BASOPHIL 1 % (0-2); EOSINOPHIL 6 % (0-4); LYMPHOCYTE 7 % (20-40); MONOCYTE 2 % (0-10); NEUTROPHIL 84 % (50-75); PLATELET ESTIMATE NORMAL (NORMAL); TOTAL CELLS COUNTED 100
[2018-10-09 10:51] LABS: TARGET CELLS SLIGHT
[2018-10-09 11:09] VITALS: TEMP 97.4
[2018-10-09] MEDS ORDERED: Pneumococcal 23-Valent Vaccine IM ONE (12:00)
[2018-10-10 16:52] LABS: LYME IGM NEGATIVE (NEGATIVE)
[2018-10-10 17:06] LABS: LYME IGG NEGATIVE (NEGATIVE)
== END 2018-10-09 13:30 | disposition home or self-care (01) | DRG 299 ==
LOC: C.ER 15:12 → C.9E 18:10 → C.5S 10-07 06:33
PROVIDERS: ADMIT Family Medicine; ATTEND Family Medicine
DX: I87.2 Venous insufficiency (chronic) (peripheral) (principal); J18.9 Pneumonia, unspecified organism; L03.115 Cellulitis of right lower limb; L03.116 Cellulitis of left lower limb; I10 Essential (primary) hypertension; I35.0 Nonrheumatic aortic (valve) stenosis; Z98.84 Bariatric surgery status; D64.9 Anemia, unspecified; L85.3 Xerosis cutis

== ENCOUNTER 2018-10-17 07:13 | Inpatient (IN) | payer MEDICARE, OTHER ==
[2018-10-17 07:13] VITALS: BMI 19.8
[2018-10-17] MEDS ORDERED: Sodium Chloride 0.9% 1,000 ML IV ONE (07:49)
--- NOTE | 2018-10-17 08:00 | C.PDOC ---
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 Patient states that his last bowel movement in the morning, he notes that he had loose stool. Patient denies having fever, chills, nausea, vomiting, dysuria, and hematuria. Time Seen by Provider: 10/17/18 07:36 Chief Complaint (Nursing): Weakness/Neurological Deficit History Per: Patient History/Exam Limitations: no limitations Onset/Duration Of Symptoms: Days Current Symptoms Are (Timing): Still Present Severity: Moderate Past Medical History Reviewed: Historical Data, Nursing Documentation, Vital Signs Vital Signs: Last Vital Signs Temp 91.4 F L 10/17/18 07:29 Pulse 50 L 10/17/18 07:29 Resp 16 10/17/18 07:29 BP 95/52 L 10/17/18 07:29 Pulse Ox 99 10/17/18 07:29 - Medical History PMH: Anemia, Back Problems, HTN Denies: Chronic Kidney Disease Other Surgeries: Hx of surgeries Family History: States: No Known Family Hx - Social History Hx Tobacco Use: No Hx Alcohol Use: No Hx Substance Use: No - Immunization History Hx Tetanus Toxoid Vaccination: No Hx Influenza Vaccination: No Hx Pneumococcal Vaccination: No Review Of Systems Except As Marked, All Systems Reviewed And Found Negative. Constitutional: Negative for: Fever, Chills Gastrointestinal: Positive for: Abdominal Pain, Diarrhea. Negative for: Nausea, Vomiting Genitourinary: Negative for: Dysuria, Hematuria Physical Exam - Physical Exam Appears: Other (uncomfortable) Skin: Normal Color, Warm, Dry Head: Atraumatic, Normacephalic Eye(s): bilateral: Normal Inspection, EOMI Nose: Normal Oral Mucosa: Moist Neck: Supple Chest: Symmetrical Cardiovascular: Other (Bradycardia, Systolic murmur) Respiratory: Normal Breath Sounds, No Rales, No Rhonchi, No Wheezing Gastrointestinal/Abdominal: Bowel Sounds, Soft, Tenderness (diffuse tenderness), No Distention, No Guarding, No Rebound Extremity: Bilateral: No Pedal Edema, Normal ROM Neurological/Psych: Oriented x3, Normal Speech ED Course And Treatment - Laboratory Results Result Diagrams: 10/17/18 09:25 10/17/18 09:54 Lab Interpretation: Abnormal ECG: Interpreted By Me, Viewed By Me ECG Rhythm: Sinus Bradycardia ECG Interpretation: No Acute Changes Rate From EC O2 Sat by Pulse Oximetry: 99 (RA) Pulse Ox Interpretation: Normal - Radiology CXR: Viewed By Me, Read By Radiologist CXR Interpretation: Yes: Other (Mild linear consolidative changes in the right midlung zone. Mild patchy increased markings at the left lung base.) - CT Scan/US Abd/pelvis Other Rad Studies (CT/US): Read By Radiologist, Radiology Report Reviewed CT/US Interpretation: Accession No. : [id number]. Patient Name / ID : CARLO YANG / [id number]. Exam Date : 10/17/2018 11:02:13 ( Approved ). Study Comment : Sex / Age : M / 68Y. Creator : Honey Rollins. Dictator : Tahira Monsivais MD. Needle Valve Operator : Ballaster : Tahira Monsivais MD. Approver2 : Report Date : 10/17/2018 11:15:37. My Comment : . Date of service: 10/17/2018. PROCEDURE: CT Abdomen and Pelvis with contrast. HISTORY: abd pain. COMPARISON: CT abdomen and pelvis with IV contrast performed 04/15/18. TECHNIQUE: Contrast dose: 100 mL Visipaque 320 IV. Radiation dose: Total exam DLP = 349.36 mGy-cm. This CT exam was performed using one or more of the following dose reduction techniques: Automated exposure control, adjustment of the mA and/or kV according to patient size, and/or use of iterative reconstruction technique. FINDINGS: LOWER THORAX: Bilateral ground- glass infiltrates. Bilateral dependent atelectasis/infiltrates. No visible pleural effusion or pneumothorax. Small hiatal hernia/distal esophageal wall thickening. LIVER: Unremarkable. GALLBLADDER AND BILE DUCTS: Cholecystectomy. PANCREAS: Unremarkable. SPLEEN: Unremarkable. ADRENALS: Unremarkable. KIDNEYS AND URETERS: The kidneys enhance symmetrically. No hydronephrosis or obstructing calculus identified. 5 mm nonobstructing left upper pole renal calculus. VASCULATURE: IVC filter. No aortic aneurysm. No atherosclerotic calcification or mural plaque present. BOWEL: Stomach is nondistended. Postsurgical gastric changes. Right upper quadrant bowel anastomotic suture material. Thick-walled small bowel loops. APPENDIX: The appendix appears within normal limits of caliber. No secondary signs of acute appendicitis. PERITONEUM: Small abdominal/pelvic ascites. Mesenteric edema. No definite free air. LYMPH NODES: No bulky adenopathy identified. BLADDER: Unremarkable. REPRODUCTIVE: Large left and small right hydrocele. The prostate gland measures approximately 3.0 x 4.0 cm. BONES: Grade 1 anterolisthesis of L4 on L5. Osseous demineralization. Degenerative changes. OTHER FINDINGS: Large left inguinal hernia containing fat and a portion of the urinary bladder. IMPRESSION: Small abdominal/pelvic ascites and mesenteric edema. Markedly thick-walled small bowel loops consistent with enteritis. Correlate clinically. Bilateral ground-glass infiltrates. Bilateral dependent atelectasis/infiltrates. Small hiatal hernia/distal esophageal wall thickening. Large left inguinal hernia containing fat and a portion of the urinary bladder. Large left and small right-sided hydrocele. IVC filter. Additional findings as above. Preliminary impression was provided by JONNY Valencia. Medical Decision Making Medical Decision Making: Impression: Abdominal Pain Prior records reviewed: Patient hospitalized 10/06- for bilateral leg swelling r.o CHF, Cellilitis or DVT. Patient was evaluated with consults ID, Cardio, Pulm. Pt was treated with Vanco and discontinued, when cellulitis, pneumonia excluded. Pt discharged and to f.u in [facility] with Dr Fowler 10/17/18 at 1pm. Plan: * Labs * UA * CT- Abd & Pelv. * IV Fluids bolus x2 * Pepcid IV * Toradol IV * Garrison shawn Progress: Case reviewed with Dr Fernando, who recommended starting emperic antibiotics Labs reviewed: no leukocytosis, amylase and lipase significantly elevated. 10:14 Page hospitalist 10:[address] Andrew Ledezma who accepted patient to service for acute pancreatitis After admission CT results reviewed 1200 CT shows Small abdominal/pelvic ascites and mesenteric edema. Markedly thick-walled small bowel loops consistent with enteritis. Bilateral ground-glass infiltrates. Bilateral dependent atelectasis/infiltrates. Small hiatal hernia/distal esophageal wall thickening. Large left inguinal hernia containing fat and a portion of the urinary bladder. Large left and small right-sided hydrocele. Disposition - Disposition Disposition: HOSPITALIZED Disposition Time: 10:20 Condition: STABLE - POA Present On Arrival: Poor Glycemic Control - Clinical Impression Clinical Impression: Pancreatitis, Abdominal pain - PA / SLATE HANDLER / Resident Statement MD/DO has reviewed & agrees with the documentation as recorded. - Scribe Statement The provider has reviewed the documentation as recorded by the Arianna Dillard Provider Attestation All medical record entries made by the Scribe were at my direction and personally dictated by me. I have reviewed the chart and agree that the record accurately reflects my personal performance of the history, physical exam, medical decision making, and the department course for this patient. I have also personally directed, reviewed, and agree with the discharge instructions and disposition. Decision To Admit - Pt Status Changed To: Hospital Disposition Of: Inpatient - Admit Certification Admit to Inpatient:: After my assessment, the patient will require hospitalization for at least two midnights. This is because of the severity of symptoms shown, intensity of services needed, and/or the medical risk in this patient being treated as an outpatient. - InPatient: Physician Admission Certification:: Pt with acute pancreatitis and abdominal pain. Will need inpatient care. - . Bed Request Type: Regular Admitting Physician: Butch Ledezma Patient Diagnosis: Pancreatitis, Abdominal pain
[2018-10-17 09:12] LABS: VENOUS BLOOD GAS BASE EXCESS 3.4 mmol/L (0.0-2.0); VENOUS BLOOD GAS PCO2 50 mmHg (40-60); VENOUS BLOOD GAS PO2 23 mm/Hg (30-55); VENOUS BLOOD PH 7.38 (7.32-7.43)
[2018-10-17] MEDS ORDERED: Sodium Chloride 0.9% 1,000 ML IV SCH (09:15)
[2018-10-17] MEDS ORDERED: Sodium Chloride 0.9% 2,000 ML ONE (09:24)
[2018-10-17 09:32] LABS: EOS # 0.3 K/uL (0.0-0.7); MEAN PLATELET VOLUME 10.7 fL (7.2-11.7); MONO # 0.4 K/uL (0.0-0.8); MONO % 5.8 % (0.0-10.0)
[2018-10-17 09:43] LABS: BASO % 0.4 % (0.0-2.0); EOS % 4.9 % (0.0-4.0); HEMOGLOBIN 13.7 g/dL (12.0-18.0); LYMPH # 0.5 K/uL (1.0-4.3); LYMPH % 7.3 % (20.0-40.0); MEAN CELL VOLUME 93.1 fL (80.0-94.0); MEAN CORPUSCULAR HGB CONC 33.3 g/dL (33.0-37.0); NEUT # 5.8 K/uL (1.8-7.0); NEUT % 81.6 % (50.0-75.0); NRBC % 0.5 % (0.0-2.0); RBC 4.42 Mil/uL (4.40-5.90); RED CELL DISTRIBUTION WIDTH 14.8 % (11.5-14.5)
[2018-10-17 09:44] LABS: PLATELET COUNT 130 K/uL (130-400)
[2018-10-17] MEDS ORDERED: Ciprofloxacin 400mg/200ml D5W 400 MG/200 ML BAG IVPB STA (09:44)
[2018-10-17] MEDS ORDERED: Piperacill/Tazo 3.375gm in Dex 3.375 GM/50 ML BAG IVPB STA (09:44)
[2018-10-17 09:46] LABS: PROTHROMBIN TIME 10.9 SECONDS (9.7-12.2)
--- NOTE | 2018-10-17 09:50 | RAD ---
Chest x-ray single frontal view HISTORY: Sepsis. COMPARISON: 10/06/2018 Findings Mild linear consolidative changes in the right midlung zone. Mild patchy increased markings at the left lung base. Heart size within normal limits. Impression: Mild linear consolidative changes in the right midlung zone. Mild patchy increased markings at the left lung base.
[2018-10-17 10:04] LABS: BANDS 2 % (0-2); EOSINOPHIL 7 % (0-4); LYMPHOCYTE 6 % (20-40); MONOCYTE 7 % (0-10); NEUTROPHIL 78 % (50-75); PLATELET ESTIMATE NORMAL (NORMAL); TOTAL CELLS COUNTED 100
[2018-10-17 10:07] LABS: ALB/GLOB RATIO 0.9 (1.0-2.1); ALBUMIN 2.5 g/dL (3.5-5.0); ALT/SGPT 54 U/L (21-72); AMYLASE 1128 U/L (30-110); AST/SGOT 67 U/L (17-59); BLOOD UREA NITROGEN 26 mg/dL (9-20); CALCIUM 8.8 mg/dl (8.6-10.4); GFR NON-AFRICAN AMERICAN > 60; LIPASE 7117 U/L (23-300)
[2018-10-17] MEDS ORDERED: Piperacillin/Tazobact 3.375 gm 100 ML IVPB ONE (10:56)
[2018-10-17] MEDS ORDERED: Ciprofloxacin 400mg/200ml D5W 400 MG/200 ML BAG IVPB ONE (10:56)
--- NOTE | 2018-10-17 12:27 | CT ---
Date of service: 10/17/2018 PROCEDURE: CT Abdomen and Pelvis with contrast HISTORY: abd pain COMPARISON: CT abdomen and pelvis with IV contrast performed 04/15/18 TECHNIQUE: Contrast dose: 100 mL Visipaque 320 IV Radiation dose: Total exam DLP = 349.36 mGy-cm. This CT exam was performed using one or more of the following dose reduction techniques: Automated exposure control, adjustment of the mA and/or kV according to patient size, and/or use of iterative reconstruction technique. FINDINGS: LOWER THORAX: Bilateral ground-glass infiltrates. Bilateral dependent atelectasis/infiltrates. No visible pleural effusion or pneumothorax. Small hiatal hernia/distal esophageal wall thickening. LIVER: Unremarkable. GALLBLADDER AND BILE DUCTS: Cholecystectomy. PANCREAS: Unremarkable. SPLEEN: Unremarkable. ADRENALS: Unremarkable. KIDNEYS AND URETERS: The kidneys enhance symmetrically. No hydronephrosis or obstructing calculus identified. 5 mm nonobstructing left upper pole renal calculus. VASCULATURE: IVC filter. No aortic aneurysm. No atherosclerotic calcification or mural plaque present. BOWEL: Stomach is nondistended. Postsurgical gastric changes. Right upper quadrant bowel anastomotic suture material. Thick-walled small bowel loops. APPENDIX: The appendix appears within normal limits of caliber. No secondary signs of acute appendicitis. PERITONEUM: Small abdominal/pelvic ascites. Mesenteric edema. No definite free air. LYMPH NODES: No bulky adenopathy identified. BLADDER: Unremarkable. REPRODUCTIVE: Large left and small right hydrocele. The prostate gland measures approximately 3.0 x 4.0 cm. BONES: Grade 1 anterolisthesis of L4 on L5. Osseous demineralization. Degenerative changes. OTHER FINDINGS: Large left inguinal hernia containing fat and a portion of the urinary bladder. IMPRESSION: Small abdominal/pelvic ascites and mesenteric edema. Markedly thick-walled small bowel loops consistent with enteritis. Correlate clinically. Bilateral ground-glass infiltrates. Bilateral dependent atelectasis/infiltrates. Small hiatal hernia/distal esophageal wall thickening. Large left inguinal hernia containing fat and a portion of the urinary bladder. Large left and small right-sided hydrocele. IVC filter. Additional findings as above. Preliminary impression was provided by [employer].
--- NOTE | 2018-10-17 13:00 | CP.PCM.HP ---
<MaliaSofíadayton - Last Filed: 10/17/18 13:08> History of Present Illness - History of Present Illness History of Present Illness: Medicine History and Physical Exam Note for Dr. Ledezma Patient is a 68-year-old M with PMH significant for inguinal hernia, LE swelling, Aortic Stenosis, who presents to the ED for abdominal pain x1 day. Patient states that in the last week or so he has been feeling weaker and more tired. Patient states that he had a follow-up appointment today at 1PM with Dr. Fowler in the [facility], however he woke up with abdominal pain. Patient rates the pain 7/10 in intensity and localizes it to his mid-abdomen and radiating downward. Patient states the pain is crampy in quality. Patient admits to a bowel movement prior to his pain with loose watery stool however he otherwise denies fever, nausea, vomiting, bloody diarrhea, headache, chest pain, shortness of breath, and/or lower extremity pain. PMH: Inguinal hernia, LE swelling, Aortic Stenosis, Guillaren-barre type picture in 2014 (from previous record) PSH: Distal gastric bypass, IVC Filter, cholecystectomy Medications: Norvasc 5mg PO daily Allergies: NKDA Social: Denies ETOH/Tobacco/drugs Family History Patient denies PMD: Follow-up with [facility] was scheduled for 10/17 @13:[address] Fowler Present on Admission - Present on Admission Any Indicators Present on Admission: No History of DVT/PE: No History of Uncontrolled Diabetes: No Urinary Catheter: No Decubitus Ulcer Present: No Review of Systems - Constitutional Constitutional: Chills, Fatigue. absent: Anorexia, Fever, Headache, Night Sweats - EENT Eyes: absent: Change in Vision Nose/Mouth/Throat: absent: Sinus Pain - Cardiovascular Cardiovascular: absent: Chest Pain, Dyspnea, Edema, Leg Ulcers - Respiratory Respiratory: absent: Cough, Hemoptysis, Pain on Inspiration, Chest Congestion - Gastrointestinal Gastrointestinal: Abdominal Pain, Cramping, Loose Stools. absent: Diarrhea, Nausea, Vomiting - Genitourinary Genitourinary: absent: Difficulty Urinating, Dysuria - Reproductive: Male Additional comments: inguinal hernia (L) - Musculoskeletal Musculoskeletal: absent: Muscle Weakness, Numbness - Integumentary Additional comments: Dry Skin (LE B/L) - Neurological Neurological: absent: Abnormal Gait, Confusion, Frequent Falls - Endocrine Endocrine: Fatigue Past Patient History - Infectious Disease Hx of Infectious Diseases: None - Past Medical History & Family History Past Medical History?: Yes - Past Social History Smoking Status: Never Smoked - CARDIAC Hx Hypertension: Yes - PULMONARY Hx Respiratory Disorders: No - NEUROLOGICAL Hx Neurological Disorder: No - HEENT Hx HEENT Problems: Yes Other/Comment: with right cyst on lower orbital area - RENAL Hx Chronic Kidney Disease: No - ENDOCRINE/METABOLIC Hx Endocrine Disorders: No - HEMATOLOGICAL/ONCOLOGICAL Hx Anemia: Yes - INTEGUMENTARY Hx Dermatological Problems: Yes Other/Comment: skin problem - MUSCULOSKELETAL/RHEUMATOLOGICAL Hx Falls: No - GASTROINTESTINAL Other/Comment: left inguinal hernia - GENITOURINARY/GYNECOLOGICAL Hx Genitourinary Disorders: No - PSYCHIATRIC Hx Substance Use: No - SURGICAL HISTORY Hx Surgeries: Yes Hx Gastric Bypass Surgery: Yes (done 1990) - ANESTHESIA Hx Anesthesia: Yes Hx Anesthesia Reactions: No Hx Malignant Hyperthermia: No Meds Allergies/Adverse Reactions: Allergies Allergy/AdvReac Type Severity Reaction Status Date / Time No Known Allergies Allergy Verified 10/17/18 07:33 Physical Exam - Constitutional Appears: Non-toxic, No Acute Distress, Cachectic, Chronically Ill - Head Exam Head Exam: ATRAUMATIC, NORMAL INSPECTION, NORMOCEPHALIC - Eye Exam Eye Exam: EOMI, Normal appearance, PERRL - ENT Exam ENT Exam: Mucous Membranes Dry, Normal Exam - Neck Exam Neck exam: Positive for: Full Rom, Normal Inspection. Negative for: Lymphadenopathy - Respiratory Exam Respiratory Exam: Clear to Auscultation Bilateral. absent: Decreased Breath Sounds, Rales, Wheezes - Cardiovascular Exam Cardiovascular Exam: REGULAR RHYTHM, Systolic Murmur (crescendo-decrescendo right 2nd intercostal space) - GI/Abdominal Exam GI & Abdominal Exam: Normal Bowel Sounds, Soft, Tenderness (epigastrum). absent: Bruit, Distended, Guarding, Rebound, Rigid - Exam Exam: NORMAL INSPECTION. absent: Scrotal Swelling Additional comments: left inguinal hernia - Extremities Exam Extremities exam: Positive for: pedal pulses present. Negative for: calf tenderness, joint swelling, tenderness - Back Exam Back exam: NORMAL INSPECTION - Neurological Exam Neurological exam: Alert, Oriented x3 - Psychiatric Exam Psychiatric exam: Normal Affect, Normal Mood - Skin Skin Exam: Dry, Intact, Normal Color Additional comments: Patient is cool to touch Results - Vital Signs Recent Vital Signs: Last Vital Signs Temp 94 F L 10/17/18 10:50 Pulse 49 L 10/17/18 10:50 Resp 19 10/17/18 10:50 BP 94/48 L 10/17/18 10:50 Pulse Ox 99 10/17/18 11:56 - Labs Result Diagrams: 10/17/18 09:25 10/17/18 09:54 Labs: Laboratory Results - last 24 hr 10/17/18 10/17/18 10/17/18 09:09 09:25 09:25 WBC 7.0 RBC 4.42 Hgb 13.7 Hct 41.2 MCV 93.1 MCH 31.0 MCHC 33.3 RDW 14.8 H Plt Count 130 MPV 10.7 Neut % (Auto) 81.6 H Lymph % (Auto) 7.3 L Worth % (Auto) 5.8 Eos % (Auto) 4.9 H Baso % (Auto) 0.4 Neut # (Auto) 5.8 Lymph # (Auto) 0.5 L Worth # (Auto) 0.4 Eos # (Auto) 0.3 Baso # (Auto) 0.0 Neutrophils % (Manual) 78 H Band Neutrophils % 2 Lymphocytes % (Manual) 6 L Monocytes % (Manual) 7 Eosinophils % (Manual) 7 H Platelet Estimate Normal PT INR APTT pO2 23 L VBG pH 7.38 VBG pCO2 50 VBG HCO3 26.0 VBG Total CO2 31.1 H VBG O2 Sat (Calc) 35.8 L VBG Base Excess 3.4 H VBG Potassium 4.2 Sodium 141.0 Cancelled Chloride 110.0 H Cancelled Glucose 60 L Lactate 1.7 Potassium Cancelled Carbon Dioxide Cancelled Anion Gap Cancelled BUN Cancelled Creatinine Cancelled Est GFR ( Amer) Cancelled Est GFR (Non-Af Amer) Cancelled Random Glucose Cancelled Calcium Cancelled Phosphorus Cancelled Magnesium Cancelled Total Bilirubin Cancelled AST Cancelled ALT Cancelled Alkaline Phosphatase Cancelled Lactate Dehydrogenase Total Protein Cancelled Albumin Cancelled Globulin Cancelled Albumin/Globulin Ratio Cancelled Amylase Cancelled Lipase Cancelled Venous Blood Potassium 4.2 10/17/18 10/17/18 09:25 09:54 WBC RBC Hgb Hct MCV MCH MCHC RDW Plt Count MPV Neut % (Auto) Lymph % (Auto) Worth % (Auto) Eos % (Auto) Baso % (Auto) Neut # (Auto) Lymph # (Auto) Worth # (Auto) Eos # (Auto) Baso # (Auto) Neutrophils % (Manual) Band Neutrophils % Lymphocytes % (Manual) Monocytes % (Manual) Eosinophils % (Manual) Platelet Estimate PT 10.9 INR 1.0 APTT 39 H pO2 VBG pH VBG pCO2 VBG HCO3 VBG Total CO2 VBG O2 Sat (Calc) VBG Base Excess VBG Potassium Sodium 140 Chloride 107 Glucose Lactate Potassium 4.6 Carbon Dioxide 29 Anion Gap 8 L BUN 26 H Creatinine 1.0 Est GFR ( Amer) > 60 Est GFR (Non-Af Amer) > 60 Random Glucose 60 L Calcium 8.8 Phosphorus 3.6 Magnesium 2.1 Total Bilirubin 0.4 AST 67 H D ALT 54 Alkaline Phosphatase 145 H Lactate Dehydrogenase 955 H Total Protein 5.4 L Albumin 2.5 L Globulin 2.9 Albumin/Globulin Ratio 0.9 L Amylase 1128 H Lipase 7117 H Venous Blood Potassium Assessment & Plan - Assessment and Plan (Free Text) Assessment: Patient is a 68-year-old M with PMH significant for inguinal hernia, LE s welling, Aortic Stenosis, who presents to the ED for abdominal pain x1 day. SIRS Criteria R/O Sepsis - Hypothermia temp= 91.6 (rectal), BP = 87/41 - 1L bolus administered in ED - Zosyn 3.375g IVPB x 1 dose administered in ED - Antibiotics: continue Zosyn 3.375g IVPB, Vancomycin 1g IVPB Q24H - Start IVF (NS @150mL/hr) - No leukocytosis - F/U ABG Shock - F/U Serum Lactate - F/U Blood cultures - F/U Urine cultures - Monitor vitals - CXR 10/17: Mid linear consolidative changes in the right midlung zone; mild patchy increased markings at the left lung base. Heart size within normal limits. - CT abdomen / pelvis 10/17: Per Official report * Small abdominal/pelvic ascites and mesenteric edema * Markedly thick-walled small bowel loops consistent with enteritis * Bilateral ground-glass infiltrates * Bilateral dependent atelectasis/infiltrates * Small hiatal hernia/distal esophageal wall thickening * Large left inguinal hernia containing fat and portion of the urinary bladder * Large left and small right-sided hydrocele * IVC filter - F/U CT Chest without contrast 10/17: - Monitor Hypothermia - Temp (rectal) = 91.6 - Bear-warming blanket - Monitor Abdominal Pain Likely Secondary to Enteritis, R/O Pancreatitis - Alk ddnj=544 - Lactate Zzwysagzafoip=989 - Frgnznc=7118 - Elevated Lipase = 7117 - CT abdomen / pelvis 10/17 (see findings above) - Keep NPO - IVF @150mL / hr - Pepcid 20mg IVP STAT given in ED History of Aortic Stenosis - CXR 10/17: Mid linear consolidative changes in the right midlung zone; mild patchy increased markings at the left lung base. Heart size within normal l imits. - Patient had been instructed to follow-up with Dr. Tre ibrara in October 2018 - Murmur appreciated on physical exam - (10/07/18) Echo: Left ventricle systolic function is normal. The ejection fraction is within normal range. There is mild AR. There is moderate valvular aortic stenosis. There is no MR OR TR noted. - EKG 10/17: sinus bradycardia at 50bpm PPx: - GI: Pepcid 20mg IVP daily - DVT: SCDs - Heparin 5,000units Q8H Imaging from Previous Admission: (10/07/17) Chest CT : Prominent multifocal scattered areas of airspace consolidation seen throughout both lungs within all the visualized lung lobes concerning for a multifocal infectious and/or inflammatory process. Clinical correlation. 2. In addition, there is a more focal area of masslike consolidation within the right middle lobe of the lung as described. Post treatment interval follow-up is recommended to ensure resolution. Alternatively, follow-up CT and/or PET-CT an interval date is recommended. 3. Left paratracheal lymph node measures 1.5 centimeters. Precarinal lymph node measures 1.1 centimeters. Limited evaluation for hilar adenopathy given lack of contrast. Prominent right hilar lymph node measures 1.[address] unchanged from previous pulmonary imaging. Patient seen and case discussed in detail with Dr. Brisa Finley PGY1 <Butch Ledezma - Last Filed: 10/17/18 14:27> Results - Vital Signs Recent Vital Signs: Last Vital Signs Temp 91.6 F L 10/17/18 11:49 Pulse 57 L 10/17/18 11:49 Resp 20 10/17/18 11:49 BP 114/70 10/17/18 11:49 Pulse Ox 99 10/17/18 11:56 - Labs Result Diagrams: 10/17/18 09:25 10/17/18 09:54 Labs: Laboratory Results - last 24 hr 10/17/18 10/17/18 10/17/18 09:09 09:25 09:25 WBC 7.0 RBC 4.42 Hgb 13.7 Hct 41.2 MCV 93.1 MCH 31.0 MCHC 33.3 RDW 14.8 H Plt Count 130 MPV 10.7 Neut % (Auto) 81.6 H Lymph % (Auto) 7.3 L Worth % (Auto) 5.8 Eos % (Auto) 4.9 H Baso % (Auto) 0.4 Neut # (Auto) 5.8 Lymph # (Auto) 0.5 L Worth # (Auto) 0.4 Eos # (Auto) 0.3 Baso # (Auto) 0.0 Neutrophils % (Manual) 78 H Band Neutrophils % 2 Lymphocytes % (Manual) 6 L Monocytes % (Manual) 7 Eosinophils % (Manual) 7 H Platelet Estimate Normal PT INR APTT Puncture Site pCO2 pO2 23 L HCO3 ABG pH ABG Total CO2 ABG O2 Saturation ABG Base Excess Antonio Test ABG Potassium VBG pH 7.38 VBG pCO2 50 VBG HCO3 26.0 VBG Total CO2 31.1 H VBG O2 Sat (Calc) 35.8 L VBG Base Excess 3.4 H VBG Potassium 4.2 Sodium 141.0 Cancelled Chloride 110.0 H Cancelled Glucose 60 L Lactate 1.7 Liter Flow Potassium Cancelled Carbon Dioxide Cancelled Anion Gap Cancelled BUN Cancelled Creatinine Cancelled Est GFR ( Amer) Cancelled Est GFR (Non-Af Amer) Cancelled Random Glucose Cancelled Calcium Cancelled Phosphorus Cancelled Magnesium Cancelled Total Bilirubin Cancelled AST Cancelled ALT Cancelled Alkaline Phosphatase Cancelled Lactate Dehydrogenase Total Protein Cancelled Albumin Cancelled Globulin Cancelled Albumin/Globulin Ratio Cancelled Amylase Cancelled Lipase Cancelled Arterial Blood Potassium Venous Blood Potassium 4.2 10/17/18 10/17/18 10/17/18 09:25 09:54 13:40 WBC RBC Hgb Hct MCV MCH MCHC RDW Plt Count MPV Neut % (Auto) Lymph % (Auto) Worth % (Auto) Eos % (Auto) Baso % (Auto) Neut # (Auto) Lymph # (Auto) Worth # (Auto) Eos # (Auto) Baso # (Auto) Neutrophils % (Manual) Band Neutrophils % Lymphocytes % (Manual) Monocytes % (Manual) Eosinophils % (Manual) Platelet Estimate PT 10.9 INR 1.0 APTT 39 H Puncture Site Lr pCO2 41 pO2 83 HCO3 25.3 ABG pH 7.40 ABG Total CO2 26.7 ABG O2 Saturation 97.4 ABG Base Excess 0.5 Antonio Test Pos ABG Potassium 3.9 VBG pH VBG pCO2 VBG HCO3 VBG Total CO2 VBG O2 Sat (Calc) VBG Base Excess VBG Potassium Sodium 140 142.0 Chloride 107 115.0 H Glucose 64 L Lactate 0.7 Liter Flow 2.0 Potassium 4.6 Carbon Dioxide 29 Anion Gap 8 L BUN 26 H Creatinine 1.0 Est GFR ( Amer) > 60 Est GFR (Non-Af Amer) > 60 Random Glucose 60 L Calcium 8.8 Phosphorus 3.6 Magnesium 2.1 Total Bilirubin 0.4 AST 67 H D ALT 54 Alkaline Phosphatase 145 H Lactate Dehydrogenase 955 H Total Protein 5.4 L Albumin 2.5 L Globulin 2.9 Albumin/Globulin Ratio 0.9 L Amylase 1128 H Lipase 7117 H Arterial Blood Potassium 3.9 Venous Blood Potassium Attending/Attestation - Attestation I have personally seen and examined this patient.: Yes I have fully participated in the care of the patient.: Yes I have reviewed all pertinent clinical information: Yes Notes (Text): 10/17/18 14:24 Medical attending: Patient was seen and examined by me. Agree with the medical biller/coder The patient was not in any acute distress he was answering all questions and cooperative with the exam We need to assess for potential sepsis due to the hypothermia. Will check ABG now, Lactic acid in a few hours, and blood and urine cultures The imaging suggest possible has a pneumonia so will check CT of the chest w/o contrast. Also the patient had a CT scan of the abdomen and pelvis which suggested possible small bowel wal inflmmation but reported the pancrease being unremarkable despite the lipase being so elevated Reguardless the patient will be on IV abx, IVF, and also with the warming balnkets He reported he does drink alcohol however today did not. He denies homelessness Butch Ledezma
[2018-10-17] MEDS: Sodium Chloride 0.9% 1,000 ML IV SCH ×2 (13:40→20:10)
[2018-10-17 13:50] LABS: ABG ALLEN TEST POS; ARTERIAL BLOOD GAS HCO3 25.3 mmol/L (21-28); ARTERIAL BLOOD GAS O2 SAT 97.4 % (95-98); ARTERIAL BLOOD GAS PCO2 41 mm/Hg (35-45); ARTERIAL BLOOD GAS PO2 83 mm/Hg (80-100); ARTERIAL BLOOD GAS TCO2 26.7 mmol/L (22-28)
--- NOTE | 2018-10-17 17:40 | CT ---
Date of service: 10/17/2018 PROCEDURE: CT Chest without contrast HISTORY: possible pneumonia COMPARISON: Comparison is made to the previous study dated 10/08/2018 TECHNIQUE: Contiguous axial images were obtained through the chest without intravenous contrast enhancement. Sagittal and coronal reconstructions were performed. Radiation dose: Total exam DLP = 307.59 mGy-cm. This CT exam was performed using one or more of the following dose reduction techniques: Automated exposure control, adjustment of the mA and/or kV according to patient size, and/or use of iterative reconstruction technique. FINDINGS: LUNGS: There is interval worsening of airspace consolidation at the lower lobes right more than left since the previous exam. Again noted are scattered ground-glass opacities associated with interstitial septal thickening in both lungs. Interval appearance of small nodular opacities in addition to the ground-glass opacities at the right upper lobe since the previous exam. MEDIASTINUM: Unremarkable thoracic aorta. No aneurysm. The heart is upper normal limit in size. Main pulmonary artery unremarkable. No vascular congestion. Mildly enlarged mediastinal lymph nodes are noted. Mildly enlarged bilateral axillary lymph nodes left more than right noted. Small calcified atherosclerotic plaques noted at the aortic arch P PLEURA: No significant pleural effusion noted. BONES: No fracture. No destructive lesion. UPPER ABDOMEN: Small fluid and diffuse mesenteric thickening and stranding noted again in the upper abdomen. OTHER FINDINGS: There are 2 adjacent soft tissue nodules at the left chest wall with the largest measures 1 centimeter IMPRESSION: Interval worsening of airspace consolidation at the bilateral lower lobes since the previous exam. Interval slight worsening of foci of ground-glass opacities associated with interstitial septal thickening in both lungs right more than left with interval appearance of small nodular airspace opacities at the right upper lobe in addition to the ground-glass opacities. Findings are nonspecific and both infectious and inflammatory process in the differential consideration. The possibility of neoplasm such as carcinomatosis is less likely but not totally excluded.. Mild axillary lymphadenopathy left more than right.
[2018-10-17] MEDS: Piperacill/Tazo 3.375gm in Dex 3.375 GM/50 ML BAG IVPB SCH (18:19)
[2018-10-17 18:37] LABS: ABG ALLEN TEST POS; ARTERIAL BLOOD GAS HCO3 24.7 mmol/L (21-28); ARTERIAL BLOOD GAS O2 SAT 96.3 % (95-98); ARTERIAL BLOOD GAS PCO2 37 mm/Hg (35-45); ARTERIAL BLOOD GAS PH 7.42 (7.35-7.45); ARTERIAL BLOOD GAS PO2 69 mm/Hg (80-100); ARTERIAL BLOOD GAS TCO2 25.1 mmol/L (22-28)
[2018-10-18] MEDS: Piperacill/Tazo 3.375gm in Dex 3.375 GM/50 ML BAG IVPB SCH ×2 (00:20→06:35)
[2018-10-18 08:21] LABS: SQUAMOUS EPITHIAL < 1 /hpf (0-5); URINE BACTERIA FEW (<OCC); URINE BILIRUBIN NEGATIVE (NEGATIVE); URINE BLOOD 3+ (NEGATIVE); URINE CLARITY Hazy (Clear); URINE COLOR Amber (YELLOW); URINE GLUCOSE (UA) NORMAL (Normal); URINE LEUKOCYTE ESTERASE 3+ Leu/uL (Negative); URINE PROTEIN 1+ mg/dL (NEGATIVE); URINE UROBILINOGEN NORMAL mg/dL (0.2-1.0)
[2018-10-18] MEDS: Sodium Chloride 0.9% 1,000 ML IV SCH ×2 (08:45→10:21)
--- NOTE | 2018-10-18 09:23 | CP.PCM.PN ---
Subjective - Date & Time of Evaluation Date of Evaluation: 10/18/18 Time of Evaluation: 09:23 - Subjective Subjective: HOSPITALIST SERVICE Pt s/e at bedside, denies any acute complaints overnight, pt states hes feeling much better and would like to eat and drink. Pt does not understand his current status and must be educated on necessity for his current hospital stay. Pt denies cp sob fc nv, states abd resolved. Per nursing, pt is retaining urine. Objective - Vital Signs/Intake and Output Vital Signs (last 24 hours): Temp Pulse Resp BP Pulse Ox 98.5 F 73 20 89/63 L 92 L 10/18/18 08:35 10/18/18 08:35 10/18/18 08:35 10/18/18 08:35 10/18/18 08:35 Intake and Output: 10/18/18 10/18/18 06:59 18:59 Intake Total 1200 Balance 1200 - Medications Medications: Current Medications Famotidine (Pepcid) 20 mg IVP DAILY [facility] Heparin Sodium (Porcine) (Heparin) 5,000 units SC Q12 TAISHA Piperacillin Sod/Tazobactam Sod (Zosyn 3.375 Gm Iv Premix) 3.375 gm in 50 mls @ 100 mls/hr IVPB Q6H TAISHA; Protocol Last Admin: 10/18/18 06:35 Dose: 100 mls/hr Sodium Chloride (Sodium Chloride 0.9%) 1,000 mls @ 150 mls/hr IV .Q6H40M TAISHA Last Admin: 10/17/18 20:10 Dose: Not Given Vancomycin HCl 1 gm/ Sodium (Chloride) 250 mls @ 166.7 mls/hr IVPB Q24H TAISHA; Protocol Last Admin: 10/17/18 16:25 Dose: 166.7 mls/hr - Labs Labs: 10/17/18 09:25 10/17/18 09:54 PT 10.9 SECONDS (9.7-12.2) 10/17/18 09:25 INR 1.0 10/17/18 09:25 APTT 39 SECONDS (21-34) H 10/17/18 09:25 - Additional Findings Additional findings: - Constitutional Appears: Non-toxic, No Acute Distress, Cachectic, Chronically Ill - Head Exam Head Exam: ATRAUMATIC, NORMAL INSPECTION, NORMOCEPHALIC - Eye Exam Eye Exam: EOMI, Normal appearance, PERRL - ENT Exam ENT Exam: Mucous Membranes Dry, Normal Exam - Neck Exam Neck exam: Positive for: Full Rom, Normal Inspection. Negative for: Lymphadenopathy - Respiratory Exam Respiratory Exam: Clear to Auscultation Bilateral. absent: Decreased Breath Sounds, Rales, Wheezes - Cardiovascular Exam Cardiovascular Exam: REGULAR RHYTHM, Systolic Murmur (crescendo-decrescendo right 2nd intercostal space) - GI/Abdominal Exam GI & Abdominal Exam: Normal Bowel Sounds, Soft, Tenderness (epigastrum). absent: Bruit, Distended, Guarding, Rebound, Rigid - Exam Exam: NORMAL INSPECTION. absent: Scrotal Swelling Additional comments: left inguinal hernia - Extremities Exam Extremities exam: Positive for: pedal pulses present. Negative for: calf tenderness, joint swelling, tenderness - Back Exam Back exam: NORMAL INSPECTION - Neurological Exam Neurological exam: Alert, Oriented x3 - Psychiatric Exam Psychiatric exam: Normal Affect, Normal Mood - Skin Skin Exam: Dry, Intact, Normal Color Additional comments: Patient is cool to touch Assessment and Plan - Assessment and Plan (Free Text) Assessment: Patient is a 68-year-old M with PMH significant for inguinal hernia, LE swelling, Aortic Stenosis, who presents to the ED for abdominal pain x1 day. Acute Pancreatitis -Lipase and Amylase elevated -neg pancreatic u/s: unlikely obstructive, 4mm CBD -Lac Ringers @ 150 -Clear liquid diet -GI consulted, Dr Rodríguez MRCP tmrw SIRS Criteria R/O Sepsis - Hypothermia resolved - No leukocytosis - Neg ABG Shock - neg Serum Lactate - neg Blood cultures - F/U Urine cultures - Monitor vitals - CXR 10/17: Mid linear consolidative changes in the right midlung zone; mild patchy increased markings at the left lung base. Heart size within normal limits. - CT abdomen / pelvis 10/17: Per Official report * Small abdominal/pelvic ascites and mesenteric edema * Markedly thick-walled small bowel loops consistent with enteritis * Bilateral ground-glass infiltrates * Bilateral dependent atelectasis/infiltrates * Small hiatal hernia/distal esophageal wall thickening * Large left inguinal hernia containing fat and portion of the urinary bladder * Large left and small right-sided hydrocele * IVC filter - F/U CT Chest without contrast 10/17: ground glass opacities, jennifer lower lobe infiltrates septal thickening - Monitor Hypothermia resolved - Monitor History of Aortic Stenosis - CXR 10/17: Mid linear consolidative changes in the right midlung zone; mild patchy increased markings at the left lung base. Heart size within normal limits. - Patient had been instructed to follow-up with Dr. [place] office in October 2018 - Murmur appreciated on physical exam - (10/07/18) Echo: Left ventricle systolic function is normal. The ejection fraction is within normal range. There is mild AR. There is moderate valvular aortic stenosis. There is no MR OR TR noted. - EKG 10/17: sinus bradycardia at 50bpm PPx: - GI: Pepcid 20mg IVP daily - DVT: SCDs - Heparin 5,000units Q8H Imaging from Previous Admission: (10/07/17) Chest CT : Prominent multifocal scattered areas of airspace consol idation seen throughout both lungs within all the visualized lung lobes concerning for a multifocal infectious and/or inflammatory process. Clinical correlation. 2. In addition, there is a more focal area of masslike consolidation within the right middle lobe of the lung as described. Post treatment interval follow-up is recommended to ensure resolution. Alternatively, follow-up CT and/or PET-CT an interval date is recommended. 3. Left paratracheal lymph node measures 1.5 centimeters. Precarinal lymph node measures 1.1 centimeters. Limited evaluation for hilar adenopathy given lack of contrast. Prominent right hilar lymph node measures 1.[address] unchanged from previous pulmonary imaging.
[2018-10-18 11:38] LABS: BASO # 0.1 K/uL (0.0-0.2); BASO % 0.5 % (0.0-2.0); EOS # 0.3 K/uL (0.0-0.7); LYMPH # 0.7 K/uL (1.0-4.3); LYMPH % 5.1 % (20.0-40.0); MEAN CELL VOLUME 93.6 fL (80.0-94.0); MEAN CORPUSCULAR HEMOGLOBIN 30.4 pg (27.0-31.0); MEAN CORPUSCULAR HGB CONC 32.5 g/dL (33.0-37.0); MEAN PLATELET VOLUME 11.2 fL (7.2-11.7); MONO # 0.8 K/uL (0.0-0.8); MONO % 6.1 % (0.0-10.0); NEUT # 11.9 K/uL (1.8-7.0); NEUT % 86.3 % (50.0-75.0); NRBC % 0.2 % (0.0-2.0); RBC 3.84 Mil/uL (4.40-5.90)
[2018-10-18 11:40] LABS: HEMOGLOBIN 11.7 g/dL (12.0-18.0); PLATELET COUNT 109 K/uL (130-400); WHITE BLOOD COUNT 13.8 K/uL (4.8-10.8)
[2018-10-18 11:59] LABS: ALB/GLOB RATIO 0.7 (1.0-2.1); CALCIUM 7.7 mg/dl (8.6-10.4)
[2018-10-18 12:00] LABS: BANDS 3 % (0-2); EOSINOPHIL 2 % (0-4); LYMPHOCYTE 4 % (20-40); MONOCYTE 4 % (0-10); NEUTROPHIL 87 % (50-75); PLATELET ESTIMATE SLIGHTLY DECREASED (NORMAL); TOTAL CELLS COUNTED 100
[2018-10-18 12:01] LABS: ANISOCYTOSIS SLIGHT; GIANT PLATELETS PRESENT; LARGE PLATELETS PRESENT
[2018-10-18] MEDS: Lactated Ringer's 1,000 ML IV SCH ×3 (12:46→21:37)
--- NOTE | 2018-10-18 13:20 | US ---
Date of service: 10/18/2018 HISTORY: please visualize common bile duct, high lipase/reed COMPARISON: CT abdomen and pelvis with IV contrast performed 10/17/18 TECHNIQUE: Sonographic evaluation of the right upper quadrant of the abdomen. FINDINGS: LIVER: Measures 11.8 cm in length. Echogenic liver may be seen in setting of hepatic parenchymal disease or fatty infiltration. No focal hepatic mass identified. The main portal vein appears patent with normal directional flow. No intrahepatic bile duct dilatation. Small perihepatic ascites. GALLBLADDER: Cholecystectomy. COMMON BILE DUCT: Measures 4 mm. PANCREAS: Not well-visualized. RIGHT KIDNEY: Measures approximately 9.5 x 5.3 x 3.8 cm. No obstructing calculus or hydronephrosis identified. AORTA: Limited visualization appears grossly unremarkable. IVC: Limited visualization appears grossly unremarkable. OTHER FINDINGS: None . IMPRESSION: Echogenic liver may be seen in setting of hepatic parenchymal disease or fatty infiltration. Small perihepatic ascites. Cholecystectomy.
[2018-10-19] MEDS: Lactated Ringer's 1,000 ML IV SCH ×5 (01:04→20:44)
[2018-10-19 07:50] LABS: BASO # 0.1 K/uL (0.0-0.2); BASO % 0.6 % (0.0-2.0); EOS # 0.4 K/uL (0.0-0.7); EOS % 3.2 % (0.0-4.0); HEMOGLOBIN 11.3 g/dL (12.0-18.0); LYMPH # 0.6 K/uL (1.0-4.3); LYMPH % 5.7 % (20.0-40.0); MEAN CELL VOLUME 94.5 fL (80.0-94.0); MEAN CORPUSCULAR HEMOGLOBIN 31.3 pg (27.0-31.0); MEAN CORPUSCULAR HGB CONC 33.1 g/dL (33.0-37.0); MONO # 0.5 K/uL (0.0-0.8); NEUT # 9.3 K/uL (1.8-7.0); NEUT % 85.5 % (50.0-75.0); NRBC % 0.2 % (0.0-2.0); PLATELET COUNT 97 K/uL (130-400); RBC 3.62 Mil/uL (4.40-5.90); RED CELL DISTRIBUTION WIDTH 15.5 % (11.5-14.5); WHITE BLOOD COUNT 10.8 K/uL (4.8-10.8)
[2018-10-19 07:56] LABS: ALB/GLOB RATIO 0.7 (1.0-2.1); ALBUMIN 1.9 g/dL (3.5-5.0); ALT/SGPT 66 U/L (21-72); AMYLASE 747 U/L (30-110); AST/SGOT 108 U/L (17-59); BLOOD UREA NITROGEN 27 mg/dL (9-20); GFR NON-AFRICAN AMERICAN > 60
--- NOTE | 2018-10-19 08:21 | CP.PCM.PN ---
<Manjit Gillis - Last Filed: 10/19/18 12:56> Subjective - Date & Time of Evaluation Date of Evaluation: 10/19/18 Time of Evaluation: 08:07 - Subjective Subjective: HOSPITALIST SERVICE Pt s/e at bedside. Pt tore out his IV this morning when going to the bathroom @ 745. He then wiped himself with his bloody arm and was confused whether or not he bled per rectum. Pt denies black / sticky / tarry stools, denies syncope, denies chest pain or SOB, dizziness, nausea vomiting. STAT vitals were normal, AM CBC stable, FOBT pending, NO blood or hemorrhoids felt/seen on STACIA Objective - Vital Signs/Intake and Output Vital Signs (last 24 hours): Temp Pulse Resp BP Pulse Ox 96.4 F L 65 20 102/68 98 10/18/18 21:54 10/19/18 00:00 10/19/18 00:00 10/19/18 00:00 10/19/18 00:00 Intake and Output: 10/19/18 10/19/18 06:59 18:59 Intake Total 1700 1040 Output Total 250 Balance 1700 790 - Medications Medications: Current Medications Famotidine (Pepcid) 20 mg IVP DAILY [facility] Last Admin: 10/18/18 10:21 Dose: 20 mg Heparin Sodium (Porcine) (Heparin) 5,000 units SC Q12 [facility] Last Admin: 10/18/18 21:37 Dose: 5,000 units Ceftriaxone Sodium 1 gm/ (Sodium Chloride) 100 mls @ 100 mls/hr IVPB Q12H [facility]; Protocol Last Admin: 10/19/18 01:06 Dose: 100 mls/hr Lactated Ringer's (Lactated Ringer's) 1,000 mls @ 150 mls/hr IV .Q6H40M [facility] Last Admin: 10/19/18 05:51 Dose: 150 mls/hr Tamsulosin HCl (Flomax) 0.4 mg PO DAILY [facility] Last Admin: 10/18/18 16:58 Dose: 0.4 mg - Labs Labs: 10/19/18 07:35 10/19/18 07:35 PT 10.9 SECONDS (9.7-12.2) 10/17/18 09:25 INR 1.0 10/17/18 09:25 APTT 39 SECONDS (21-34) H 10/17/18 09:25 - Constitutional Appears: Non-toxic, No Acute Distress - Head Exam Head Exam: ATRAUMATIC, NORMAL INSPECTION, NORMOCEPHALIC - Eye Exam Eye Exam: EOMI, Normal appearance, PERRL Pupil Exam: NORMAL ACCOMODATION - ENT Exam ENT Exam: Mucous Membranes Dry - Neck Exam Neck Exam: Full ROM - Respiratory Exam Respiratory Exam: Clear to Ausculation Bilateral, NORMAL BREATHING PATTERN. absent: Wheezes - Cardiovascular Exam Cardiovascular Exam: RRR, +S1, +S2 - GI/Abdominal Exam GI & Abdominal Exam: Soft. absent: Guarding, Tenderness - Rectal Exam Rectal Exam: NORMAL INSPECTION. absent: Black Stool, Bloody Stool, Hemorrhoids, Fecal Impaction Additional comments: STAT vitals were normal, AM CBC stable, FOBT pending, NO blood or hemorrhoids felt/seen on STACIA - Extremities Exam Extremities Exam: Pedal Edema. absent: Tenderness - Neurological Exam Neurological Exam: Alert, Awake, CN II-XII Intact, Oriented x3 - Psychiatric Exam Psychiatric exam: Normal Affect - Skin Skin Exam: Abrasion, Dry Additional comments: scaly xerosis diffusely on forehead, scalp, and upper back xerosis with hyperpigmentation on b/l lower legs and feet - Additional Findings Additional findings: - Constitutional Appears: Non-toxic, No Acute Distress, Cachectic, Chronically Ill - Head Exam Head Exam: ATRAUMATIC, NORMAL INSPECTION, NORMOCEPHALIC - Eye Exam Eye Exam: EOMI, Normal appearance, PERRL - ENT Exam ENT Exam: Mucous Membranes Dry, Normal Exam - Neck Exam Neck exam: Positive for: Full Rom, Normal Inspection. Negative for: Lymphadenopathy - Respiratory Exam Respiratory Exam: Clear to Auscultation Bilateral. absent: Decreased Breath Sounds, Rales, Wheezes - Cardiovascular Exam Cardiovascular Exam: REGULAR RHYTHM, Systolic Murmur (crescendo-decrescendo right 2nd intercostal space) - GI/Abdominal Exam GI & Abdominal Exam: Normal Bowel Sounds, Soft, Tenderness (epigastrum). absent: Bruit, Distended, Guarding, Rebound, Rigid - Exam Exam: NORMAL INSPECTION. absent: Scrotal Swelling Additional comments: left inguinal hernia - Extremities Exam Extremities exam: Positive for: pedal pulses present. Negative for: calf tenderness, joint swelling, tenderness - Back Exam Back exam: NORMAL INSPECTION - Neurological Exam Neurological exam: Alert, Oriented x3 - Psychiatric Exam Psychiatric exam: Normal Affect, Normal Mood - Skin Skin Exam: Dry with many excoriations, Intact, Normal Color Additional comments: Patient is cool to touch Assessment and Plan - Assessment and Plan (Free Text) Assessment: Patient is a 68-year-old M with PMH significant for inguinal hernia, LE swe lling, Aortic Stenosis, who presents to the ED for abdominal pain x1 day. Acute Pancreatitis -Lipase and Amylase elevated -neg pancreatic u/s: unlikely obstructive, 4mm CBD -Lac Ringers @ 150 -HHD advanced today -GI consulted, Dr Rodríguez MRCP f/u results Severe Xerosis - LacHydrin lotion topical TID - Vitamin A&D Ointment topical TID - encourage intense moisturization to face and legs SIRS Criteria R/O Sepsis resolved - Hypothermia resolved - No leukocytosis - Neg ABG Shock - neg Serum Lactate - neg Blood cultures - F/U Urine cultures - Monitor vitals - CXR 10/17: Mid linear consolidative changes in the right midlung zone; mild patchy increased markings at the left lung base. Heart size within normal limits. - CT abdomen / pelvis 10/17: Per Official report * Small abdominal/pelvic ascites and mesenteric edema * Markedly thick-walled small bowel loops consistent with enteritis * Bilateral ground-glass infiltrates * Bilateral dependent atelectasis/infiltrates * Small hiatal hernia/distal esophageal wall thickening * Large left inguinal hernia containing fat and portion of the urinary bladder * Large left and small right-sided hydrocele * IVC filter - CT Chest without contrast 10/17: ground glass opacities, jennifer lower lobe infiltrates septal thickening - Monitor Hypothermia resolved - Monitor History of Aortic Stenosis - CXR 10/17: Mid linear consolidative changes in the right midlung zone; mild patchy increased markings at the left lung base. Heart size within normal limits. - Patient had been instructed to follow-up with Dr. [place] office in October 2018 - Murmur appreciated on physical exam - (10/07/18) Echo: Left ventricle systolic function is normal. The ejection fract ion is within normal range. There is mild AR. There is moderate valvular aortic stenosis. There is no MR OR TR noted. - EKG 10/17: sinus bradycardia at 50bpm PPx: - GI: Pepcid 20mg IVP daily - DVT: SCDs - Heparin 5,000units Q8H Imaging from Previous Admission: (10/07/17) Chest CT : Prominent multifocal scattered areas of airspace consolidation seen throughout both lungs within all the visualized lung lobes concerning for a multifocal infectious and/or inflammatory process. Clinical correlation. 2. In addition, there is a more focal area of masslike consolidation within the right middle lobe of the lung as described. Post treatment interval follow-up is recommended to ensure resolution. Alternatively, follow-up CT and/or PET-CT an interval date is recommended. 3. Left paratracheal lymph node measures 1.5 centimeters. Precarinal lymph node measures 1.1 centimeters. Limited evaluation for hilar adenopathy given lack of contrast. Prominent right hilar lymph node measures 1.[address] unchanged from previous pulmonary imaging. dispo : likely dc tmrw pending lip trend and diet tolerance <Butch Ledezma H - Last Filed: 10/19/18 16:15> Objective - Vital Signs/Intake and Output Vital Signs (last 24 hours): Temp Pulse Resp BP Pulse Ox 96.8 F L 65 20 104/60 95 10/19/18 08:04 10/19/18 08:04 10/19/18 08:04 10/19/18 08:04 10/19/18 08:04 Intake and Output: 10/19/18 10/19/18 06:59 18:59 Intake Total 1700 2670 Output Total 450 Balance 1700 2220 - Medications Medications: Current Medications Famotidine (Pepcid) 20 mg IVP DAILY [facility] Last Admin: 10/19/18 10:05 Dose: 20 mg Heparin Sodium (Porcine) (Heparin) 5,000 units SC Q12 [facility] Last Admin: 10/19/18 10:05 Dose: 5,000 units Ceftriaxone Sodium 1 gm/ (Sodium Chloride) 100 mls @ 100 mls/hr IVPB Q12H [facility]; Protocol Last Admin: 10/19/18 14:06 Dose: 100 mls/hr Lactated Ringer's (Lactated Ringer's) 1,000 mls @ 150 mls/hr IV .Q6H40M [facility] Last Admin: 10/19/18 14:38 Dose: Not Given Lactic Acid (Lac-Hydrin 12% Lotion (225 G)) 4 gm EXT TID [facility] Last Admin: 10/19/18 14:07 Dose: 1 applic Tamsulosin HCl (Flomax) 0.4 mg PO DAILY [facility] Last Admin: 10/19/18 10:05 Dose: 0.4 mg Vitamin A (Vitamin A & D Oint Ud Foilpak) 1 ea TOP BID [facility] Last Admin: 10/19/18 10:30 Dose: 1 ea - Labs Labs: 10/19/18 09:39 10/19/18 07:35 PT 10.9 SECONDS (9.7-12.2) 10/17/18 09:25 INR 1.0 10/17/18 09:25 APTT 39 SECONDS (21-34) H 10/17/18 09:25 Attending/Attestation - Attestation I have personally seen and examined this patient.: Yes I have fully participated in the care of the patient.: Yes I have reviewed all pertinent clinical information, including history, physical exam and plan: Yes Notes (Text): 10/19/18 16:12 Medical attending: Patient was seen and examined by me. Agree with the above note by the resident The patient was asking for his diet to be advanced and so we will, we cautioned him to be careful and eat slowly. The patient has had a decrease in his Lipase as well His vital signs do not show the acute hypothermia like when he came into the hospital Hopefully can be discharged soon Butch Ledezma
[2018-10-19 08:32] LABS: LIPASE 2716 U/L (23-300)
[2018-10-19 09:45] LABS: BASO % 0.3 % (0.0-2.0); EOS # 0.3 K/uL (0.0-0.7); EOS % 2.1 % (0.0-4.0); HEMOGLOBIN 11.6 g/dL (12.0-18.0); LYMPH # 0.6 K/uL (1.0-4.3); LYMPH % 4.7 % (20.0-40.0); MEAN CELL VOLUME 94.9 fL (80.0-94.0); MEAN CORPUSCULAR HEMOGLOBIN 31.3 pg (27.0-31.0); MEAN PLATELET VOLUME 10.9 fL (7.2-11.7); MONO # 0.6 K/uL (0.0-0.8); MONO % 4.9 % (0.0-10.0); NEUT # 11.1 K/uL (1.8-7.0); NRBC % 0.1 % (0.0-2.0); RBC 3.72 Mil/uL (4.40-5.90); RED CELL DISTRIBUTION WIDTH 15.6 % (11.5-14.5); WHITE BLOOD COUNT 12.7 K/uL (4.8-10.8)
[2018-10-19] MEDS ORDERED: Potassium Chloride 20 mEq/15 ml LIQ UD PO STA (10:01)
[2018-10-19 10:04] LABS: EOSINOPHIL 7 % (0-4); LYMPHOCYTE 4 % (20-40); MONOCYTE 2 % (0-10); NEUTROPHIL 87 % (50-75); PLATELET ESTIMATE DECREASED (NORMAL); TOTAL CELLS COUNTED 100
[2018-10-19 10:05] LABS: ANISOCYTOSIS SLIGHT; HYPOCHROMIC SLIGHT; POIKILOCYTOSIS SLIGHT
[2018-10-19] MEDS: Vitamins A & D Oint UD Foilpak TOP SCH ×2 (10:30→19:19)
--- NOTE | 2018-10-19 10:40 | CP.PCM.CON ---
History of Present Illness - History of Present Illness History of Present Illness: GI Consult Note for Dr. Rodríguez HPI: 68 y/o male with PMHx of aortic stenosis and inguinal hernia presented to the ED on 10/17 with abdominal pain per records. When interviewed at bedside today, patient states that he does not know why he is here, but later said that he had bilateral LE swelling. Patient is a poor historian. He denies ever having abdominal pain here, and denies PMHx of pancreatitis. Per admission note, patient had 7/10 mid abdominal pain radiating downward and crampy in quality. Patient admitted with loose watery stool x 1 and denied other symptoms. Denies fever, nausea, vomiting, headache, chest pain, SOB, LE pain. Patient states he drove to the ER. Currently tolerating liquid diet and eating comfortably in bed. PMHx: as stated above PSHx: 1989 gastric bypass, IVC filter, cholecystectomy FHx: denies SocHx: Denies x 3 Meds: norvasc 5 mg daily Allergies: NKDA Past Patient History - Infectious Disease Hx of Infectious Diseases: None - Past Medical History & Family History Past Medical History?: Yes - Past Social History Smoking Status: Never Smoked - CARDIAC Hx Hypertension: Yes - PULMONARY Hx Respiratory Disorders: No - NEUROLOGICAL Hx Neurological Disorder: No - HEENT Hx HEENT Problems: Yes Other/Comment: with right cyst on lower orbital area - RENAL Hx Chronic Kidney Disease: No - ENDOCRINE/METABOLIC Hx Endocrine Disorders: No - HEMATOLOGICAL/ONCOLOGICAL Hx Anemia: Yes - INTEGUMENTARY Hx Dermatological Problems: Yes Other/Comment: skin problem - MUSCULOSKELETAL/RHEUMATOLOGICAL Hx Falls: No - GASTROINTESTINAL Other/Comment: left inguinal hernia - GENITOURINARY/GYNECOLOGICAL Hx Genitourinary Disorders: No - PSYCHIATRIC Hx Substance Use: No - SURGICAL HISTORY Hx Surgeries: Yes Hx Gastric Bypass Surgery: Yes (done 1990) - ANESTHESIA Hx Anesthesia: Yes Hx Anesthesia Reactions: No Hx Malignant Hyperthermia: No Meds Allergies/Adverse Reactions: Allergies Allergy/AdvReac Type Severity Reaction Status Date / Time No Known Allergies Allergy Verified 10/17/18 07:33 - Medications Medications: Current Medications Famotidine (Pepcid) 20 mg IVP DAILY [facility] Last Admin: 10/19/18 10:05 Dose: 20 mg Heparin Sodium (Porcine) (Heparin) 5,000 units SC Q12 [facility] Last Admin: 10/19/18 10:05 Dose: 5,000 units Ceftriaxone Sodium 1 gm/ (Sodium Chloride) 100 mls @ 100 mls/hr IVPB Q12H [facility]; Protocol Last Admin: 10/19/18 01:06 Dose: 100 mls/hr Lactated Ringer's (Lactated Ringer's) 1,000 mls @ 150 mls/hr IV .Q6H40M [facility] Last Admin: 10/19/18 08:26 Dose: Not Given Tamsulosin HCl (Flomax) 0.4 mg PO DAILY [facility] Last Admin: 10/19/18 10:05 Dose: 0.4 mg Vitamin A (Vitamin A & D Oint Ud Foilpak) 1 ea TOP BID [facility] Last Admin: 10/19/18 10:30 Dose: 1 ea Physical Exam - Constitutional Appears: Well - Head Exam Head Exam: ATRAUMATIC, NORMAL INSPECTION - Eye Exam Eye Exam: Normal appearance - Neck Exam Neck exam: Positive for: Normal Inspection - Respiratory Exam Respiratory Exam: Clear to Auscultation Bilateral, NORMAL BREATHING PATTERN - GI/Abdominal Exam GI & Abdominal Exam: Normal Bowel Sounds, Soft - Neurological Exam Neurological exam: Alert - Psychiatric Exam Psychiatric exam: Normal Affect, Normal Mood - Skin Additional comments: desquamation of skin throughout face and extremities Results - Vital Signs Recent Vital Signs: Last Vital Signs Temp 96.8 F L 10/19/18 08:04 Pulse 65 10/19/18 08:04 Resp 20 10/19/18 08:04 BP 104/60 10/19/18 08:04 Pulse Ox 95 10/19/18 08:04 - Labs Result Diagrams: 10/19/18 09:39 10/19/18 07:35 Labs: Laboratory Results - last 24 hr 10/18/18 10/18/18 10/18/18 11:23 11:23 16:28 WBC 13.8 H D RBC 3.84 L Hgb 11.7 L D Hct 35.9 MCV 93.6 MCH 30.4 MCHC 32.5 L RDW 15.0 H Plt Count 109 L D MPV 11.2 Neut % (Auto) 86.3 H Lymph % (Auto) 5.1 L Collin % (Auto) 6.1 Eos % (Auto) 2.0 Baso % (Auto) 0.5 Neut # (Auto) 11.9 H Lymph # (Auto) 0.7 L Collin # (Auto) 0.8 Eos # (Auto) 0.3 Baso # (Auto) 0.1 Neutrophils % (Manual) 87 H Band Neutrophils % 3 H Lymphocytes % (Manual) 4 L Monocytes % (Manual) 4 Eosinophils % (Manual) 2 Platelet Estimate Slightly decreased L Large Platelets Present Giant Platelets Present Hypochromasia (manual) Poikilocytosis (manual Anisocytosis (manual) Slight Sodium 144 Potassium 4.0 Chloride 116 H Carbon Dioxide 24 Anion Gap 9 L BUN 33 H Creatinine 1.8 H Est GFR ( Amer) 45 Est GFR (Non-Af Amer) 38 POC Glucose (mg/dL) 108 Random Glucose 77 D Calcium 7.7 L Phosphorus 4.8 H Magnesium 2.1 Total Bilirubin 0.3 AST 73 H ALT 53 Alkaline Phosphatase 142 H Total Protein 4.9 L Albumin 2.0 L Globulin 2.9 Albumin/Globulin Ratio 0.7 L Amylase Lipase 10/19/18 10/19/18 10/19/18 07:35 07:35 09:39 WBC 10.8 12.7 H RBC 3.62 L 3.72 L Hgb 11.3 L 11.6 L Hct 34.2 L 35.3 MCV 94.5 H 94.9 H MCH 31.3 H 31.3 H MCHC 33.1 33.0 RDW 15.5 H 15.6 H Plt Count 97 L 114 L MPV 11.0 10.9 Neut % (Auto) 85.5 H 88.0 H Lymph % (Auto) 5.7 L 4.7 L Collin % (Auto) 5.0 4.9 Eos % (Auto) 3.2 2.1 Baso % (Auto) 0.6 0.3 Neut # (Auto) 9.3 H 11.1 H Lymph # (Auto) 0.6 L 0.6 L Collin # (Auto) 0.5 0.6 Eos # (Auto) 0.4 0.3 Baso # (Auto) 0.1 0.0 Neutrophils % (Manual) 87 H Band Neutrophils % Lymphocytes % (Manual) 4 L Monocytes % (Manual) 2 Eosinophils % (Manual) 7 H Platelet Estimate Decreased L Large Platelets Giant Platelets Hypochromasia (manual) Slight Poikilocytosis (manual Slight Anisocytosis (manual) Slight Sodium 141 Potassium 3.4 L Chloride 112 H Carbon Dioxide 25 Anion Gap 8 L BUN 27 H Creatinine 1.0 Est GFR ( Amer) > 60 Est GFR (Non-Af Amer) > 60 POC Glucose (mg/dL) Random Glucose 48 L D Calcium 8.0 L Phosphorus 3.0 Magnesium 2.1 Total Bilirubin 0.1 L AST 108 H D ALT 66 Alkaline Phosphatase 158 H Total Protein 4.6 L Albumin 1.9 L Globulin 2.7 Albumin/Globulin Ratio 0.7 L Amylase 747 H D Lipase 2716 H Assessment & Plan - Assessment and Plan (Free Text) Assessment: 68 y/o male with PMHx of inguinal hernia, LE swelling, Aortic Stenosis, presented to the ED for abdominal pain x1 day on 10/17. Workup significant for elevated lipase and amylase. Abdominal Pain - Resolved - Likely 2/2 enteritis per CTAP but also pancreatitis possible - On admission Alk izmg=578, Lactate Diyqtcnupwnlf=517, Egfgbhl=5399, Lipase = 7117. Repeat: amylase 747 and lipase 2716. - CTAP 10/17: ascites, mesenteric ischemia, enteritis, b/l ground glass inf iltrates, left inguinal hernia, small hiatal hernia - Patient was NPO, liquid diet now. Continue to advance as tolerated. - LR @150cc/h - Pepcid 20mg IV daily - although patient denies bloody BM, FOBT ordered and pending SIRS Criteria r/o sepsis on admission - resolved - on rocephin 1 mg q12h started 10/18 at 1400 - on admission Temp (rectal) = 91.6 - hypothermia - UA w/ 3+ leuk esterase on 10/18 - F/U Blood culture negative - VS wnl, however patient w/ WBC spike - leukocytosis this morning 10/19 12.7, previous was 10.8 - Monitor VS and routine labs - continue with medical management per primary team
--- NOTE | 2018-10-19 14:02 | MRI ---
MRCP Indication: elevated lipases, no obst, hx of cholecystectomy Technique: Multiplanar, multisequence MR images of the abdomen were obtained, including heavily T2 weighted MRCP images of the biliary system. Rotating maximum intensity projection images of the biliary system were generated. A total of 500 images were submitted for review. Comparison: Limited abdominal ultrasound, CT abdomen and pelvis with IV contrast Findings: Examination markedly limited due to respiratory artifact. Included inferior thorax demonstrate bilateral pleural effusions and consolidations. Mesenteric edema and small perihepatic/peripancreatic ascites. Pancreas appears mildly edematous. The patient is status postcholecystectomy. There is no intrahepatic biliary ductal dilatation. The common bile duct appears within normal limits in caliber and tapers distally. The pancreatic duct does not appear dilated. No filling defects are seen in the common bile duct or pancreatic duct. The included portions of the noncontrast liver, adrenal glands, kidneys, and spleen appear grossly unremarkable. No bulky abdominal lymphadenopathy is seen. IVC filter. No acute osseous abnormality is detected. Impression: Examination markedly limited due to respiratory artifact. No filling defects seen within the common bile duct which appears within normal limits of caliber. Cholecystectomy. Mesenteric edema and small perihepatic/peripancreatic ascites. Pancreas appears mildly edematous. Recommend correlation with amylase and lipase. Included inferior thorax demonstrate bilateral pleural effusions and consolidations.
[2018-10-19] MEDS: Ammonium Lactate 12% Lotion (225 g) EXT SCH ×2 (14:07→19:26)
--- NOTE | 2018-10-19 14:23 | CARD ---
APPROVED REPORT Date of service: 10/17/2018 EKG Measurement Heart [id number] <Conclusion> Sinus bradycardia Nonspecific T wave abnormality Abnormal ECG
[2018-10-20] MEDS: Lactated Ringer's 1,000 ML IV SCH ×2 (03:50→10:49)
[2018-10-20 06:48] VITALS: RESP 20; TEMP 96.2
[2018-10-20 07:56] LABS: BASO % 0.2 % (0.0-2.0); EOS # 0.2 K/uL (0.0-0.7); EOS % 1.6 % (0.0-4.0); HEMOGLOBIN 12.1 g/dL (12.0-18.0); LYMPH # 0.8 K/uL (1.0-4.3); MEAN CELL VOLUME 94.1 fL (80.0-94.0); MEAN PLATELET VOLUME 10.4 fL (7.2-11.7); MONO # 0.5 K/uL (0.0-0.8); MONO % 4.3 % (0.0-10.0); NEUT % 87.9 % (50.0-75.0); NRBC % 0.3 % (0.0-2.0); PLATELET COUNT 99 K/uL (130-400); RBC 3.91 Mil/uL (4.40-5.90); RED CELL DISTRIBUTION WIDTH 15.8 % (11.5-14.5); WHITE BLOOD COUNT 12.5 K/uL (4.8-10.8)
[2018-10-20 08:16] LABS: ALB/GLOB RATIO 0.7 (1.0-2.1); ALBUMIN 2.1 g/dL (3.5-5.0); ALT/SGPT 71 U/L (21-72); AST/SGOT 96 U/L (17-59); BLOOD UREA NITROGEN 18 mg/dL (9-20); CALCIUM 8.5 mg/dl (8.6-10.4); GFR NON-AFRICAN AMERICAN > 60
[2018-10-20 09:05] VITALS: BP 105/65; PULSE 82; O2SAT 95
[2018-10-20 09:40] LABS: LIPASE 1537 U/L (23-300)
--- NOTE | 2018-10-20 09:40 | PN ---
DATE: 10/20/2018 LOCATION: 353, bed A. SUBJECTIVE: This 68-year-old male, seen and examined in rounds initially for GI consultation on 10/19/2018, reexamined again today with reported previous episodes of hypothermia. The entire chart is reviewed including, but not limited to the most recent lab and radiology study results, current and the previous medication list, current and the previous medical events. Case discussed with the staff at length. As per my direction, the patient had MRCP yesterday. Impression is seen, reported no filling defect in the bile duct which appeared to be normal in caliber with evidence of cholecystectomy and edematous changes around peripancreatic area with ascites. The patient denied any actual chest pain, palpitation, significant shortness of breath, or evidence of active GI bleeding. LABORATORY DATA: Today's lab result showed leukocytosis of 12.5 with normal H and H as well as thrombocytopenia of 99 with blood glucose level of 56, calcium 8.5, phosphorus 2.4, AST 96 with alkaline phosphatase 188 with normal total bilirubin, but albumin 2.1 with increased CEA level to 7, but normal CEA 19-9. Stool for occult blood reported to be positive. PHYSICAL EXAMINATION: GENERAL: A 68-year-old male appeared to be awake, alert, oriented. VITAL SIGNS: Afebrile with pulse of 80, respiratory rate 20-22, blood pressure of 110/62. HEENT: Showed pale dry oral mucous membrane. Nonicteric sclerae. LUNGS: Few scattered crepitation. Decreased air entry at bases. HEART: Positive S1 and S2. ABDOMEN: Soft with mild generalized tenderness. No mass or organomegaly. No rebound tenderness or guarding. EXTREMITIES: Without edema, clubbing, or cyanosis. NEUROLOGIC: No reported new neurological deficits, sensory or motor. No focal deficits. IMPRESSION: 1. Diarrhea of unclear etiology, infectious versus mechanical. 2. Increased carcinoembryonic antigen level of unclear etiology, the possibility of occult lower gastrointestinal blood loss or/and malignancy was raised. 3. Known history of chronic lower back pain syndrome with hypertension. 4. Thrombocytopenia of unclear etiology. 5. Acute pancreatitis, the possibility of hyperlipidemia inducing pancreatitis versus viral pancreatitis was raised. SUGGESTIONS: 1. Continue current management. 2. Follow up serum lipase and amylase level, still pending. 3. The patient may need endoscopic evaluation of the GI tract due to his recent anemia with elevated CEA level. Further recommendation to follow. Mariano Hopkins MD
[2018-10-20 09:58] LABS: ANISOCYTOSIS SLIGHT; BANDS 3 % (0-2); EOSINOPHIL 1 % (0-4); LYMPHOCYTE 5 % (20-40); MONOCYTE 2 % (0-10); NEUTROPHIL 88 % (50-75); PLATELET ESTIMATE DECREASED (NORMAL); REACTIVE LYMPHOCYTES 1 % (0-0); TOTAL CELLS COUNTED 100
[2018-10-20 09:59] LABS: LARGE PLATELETS PRESENT; TARGET CELLS SLIGHT
[2018-10-20] MEDS: Vitamins A & D Oint UD Foilpak TOP SCH (10:47)
[2018-10-20] MEDS: Ammonium Lactate 12% Lotion (225 g) EXT SCH ×2 (10:50→14:38)
[2018-10-20] MEDS ORDERED: Peg-Electrolyte Oral Soln 4L (Golytely) PO ONE (11:00)
--- NOTE | 2018-10-20 11:18 | CP.PCM.DIS ---
<Manjit Gillis - Last Filed: 10/20/18 14:54> Provider - Provider Date of Admission: 10/17/18 10:23 Attending physician: Butch Ledezma DO Consults: 10/18/18 11:41 Gastroenterology Consult Routine Comment: Consulting Provider: Mariano Rodríguez Consulting Physician: Mariano Rodríguez Reason for Consult: high Lipase and amylase, possible CBD stone, ERCP? Urology Consult Routine Comment: Consulting Provider: Elier Mattson Consulting Physician: Elier Mattson Reason for Consult: difficult straight cath, prostatic hyperplasia, urine retention Time Spent in preparation of Discharge (in minutes): 45 Diagnosis - Discharge Diagnosis (1) Venous insufficiency of both lower extremities Status: Chronic (2) Pancreatitis Status: Resolved (3) Dry skin dermatitis Status: Acute (4) Hypertension Status: Chronic (5) UTI (urinary tract infection) Status: Acute Hospital Course - Lab Results Lab Results: Micro Results 10/17/18 09:43 Blood Blood Culture - Preliminary NO GROWTH AFTER 3 DAYS 10/17/18 09:25 Blood Blood Culture - Preliminary NO GROWTH AFTER 3 DAYS 10/18/18 07:37 Urine,Clean Catch Urine Culture - Final Yeast Species Most Recent Lab Values WBC 12.5 K/uL (4.8-10.8) H 10/20/18 07:46 RBC 3.91 Mil/uL (4.40-5.90) L 10/20/18 07:46 Hgb 12.1 g/dL (12.0-18.0) 10/20/18 07:46 Hct 36.8 % (35.0-51.0) 10/20/18 07:46 MCV 94.1 fL (80.0-94.0) H 10/20/18 07:46 MCH 31.0 pg (27.0-31.0) 10/20/18 07:46 MCHC 33.0 g/dL (33.0-37.0) 10/20/18 07:46 RDW 15.8 % (11.5-14.5) H 10/20/18 07:46 Plt Count 99 K/uL (130-400) L 10/20/18 07:46 MPV 10.4 fL (7.2-11.7) 10/20/18 07:46 Neut % (Auto) 87.9 % (50.0-75.0) H 10/20/18 07:46 Lymph % (Auto) 6.0 % (20.0-40.0) L 10/20/18 07:46 Wilkes % (Auto) 4.3 % (0.0-10.0) 10/20/18 07:46 Eos % (Auto) 1.6 % (0.0-4.0) 10/20/18 07:46 Baso % (Auto) 0.2 % (0.0-2.0) 10/20/18 07:46 Neut # (Auto) 11.0 K/uL (1.8-7.0) H 10/20/18 07:46 Lymph # (Auto) 0.8 K/uL (1.0-4.3) L 10/20/18 07:46 Wilkes # (Auto) 0.5 K/uL (0.0-0.8) 10/20/18 07:46 Eos # (Auto) 0.2 K/uL (0.0-0.7) 10/20/18 07:46 Baso # (Auto) 0.0 K/uL (0.0-0.2) 10/20/18 07:46 Neutrophils % (Manual) 88 % (50-75) H 10/20/18 07:46 Band Neutrophils % 3 % (0-2) H 10/20/18 07:46 Lymphocytes % (Manual) 5 % (20-40) L 10/20/18 07:46 Reactive Lymphs % 1 % (0-0) H 10/20/18 07:46 Monocytes % (Manual) 2 % (0-10) 10/20/18 07:46 Eosinophils % (Manual) 1 % (0-4) 10/20/18 07:46 Platelet Estimate Decreased (NORMAL) L 10/20/18 07:46 Large Platelets Present 10/20/18 07:46 Giant Platelets Present 10/18/18 11:23 Hypochromasia (manual) Slight 10/19/18 07:35 Poikilocytosis (manual Slight 10/19/18 07:35 Anisocytosis (manual) Slight 10/20/18 07:46 Target Cells Slight 10/20/18 07:46 PT 10.9 SECONDS (9.7-12.2) 10/17/18 09:25 INR 1.0 10/17/18 09:25 APTT 39 SECONDS (21-34) H 10/17/18 09:25 Puncture Site Rradial 10/17/18 18:30 pCO2 37 mm/Hg (35-45) 10/17/18 18:30 pO2 69 mm/Hg (80-100) L 10/17/18 18:30 HCO3 24.7 mmol/L (21-28) 10/17/18 18:30 ABG pH 7.42 (7.35-7.45) 10/17/18 18:30 ABG Total CO2 25.1 mmol/L (22-28) 10/17/18 18:30 ABG O2 Saturation 96.3 % (95-98) 10/17/18 18:30 ABG Base Excess -0.2 mmol/L (-2.0-3.0) 10/17/18 18:30 Antonio Test Pos 10/17/18 18:30 ABG Potassium 3.9 mmol/L (3.6-5.2) 10/17/18 18:30 VBG pH 7.38 (7.32-7.43) 10/17/18 09:09 VBG pCO2 50 mmHg (40-60) 10/17/18 09:09 VBG HCO3 26.0 mmol/L 10/17/18 09:09 VBG Total CO2 31.1 mmol/L (22-28) H 10/17/18 09:09 VBG O2 Sat (Calc) 35.8 % (40-65) L 10/17/18 09:09 VBG Base Excess 3.4 mmol/L (0.0-2.0) H 10/17/18 09:09 VBG Potassium 4.2 mmol/L (3.6-5.2) 10/17/18 09:09 A-a O2 Difference 113.0 mm/Hg 10/17/18 18:30 Respiratory Index 1.6 10/17/18 18:30 Sodium 146.0 mmol/l (132-148) 10/17/18 18:30 Chloride 119.0 mmol/L (98-107) H 10/17/18 18:30 Glucose 52 mg/dl (75-110) L 10/17/18 18:30 Lactate 0.6 mmol/L (0.7-2.1) L 10/17/18 18:30 Liter Flow 3.0 10/17/18 18:30 FiO2 32.0 % 10/17/18 18:30 Sodium 144 mmol/L (132-148) 10/20/18 07:41 Potassium 5.1 mmol/L (3.6-5.2) 10/20/18 07:41 Chloride 116 mmol/L (98-107) H 10/20/18 07:41 Carbon Dioxide 25 mmol/L (22-30) 10/20/18 07:41 Anion Gap 9 (10-20) L 10/20/18 07:41 BUN 18 mg/dL (9-20) 10/20/18 07:41 Creatinine 1.1 mg/dL (0.8-1.5) 10/20/18 07:41 Est GFR ( Amer) > 60 10/20/18 07:41 Est GFR (Non-Af Amer) > 60 10/20/18 07:41 POC Glucose (mg/dL) 108 mg/dL (65-110) 10/18/18 16:28 Random Glucose 56 mg/dL (75-110) L 10/20/18 07:41 Calcium 8.5 mg/dl (8.6-10.4) L 10/20/18 07:41 Phosphorus 2.4 mg/dL (2.5-4.5) L 10/20/18 07:41 Magnesium 2.0 mg/dL (1.6-2.3) 10/20/18 07:41 Total Bilirubin 0.2 mg/dL (0.2-1.3) 10/20/18 07:41 AST 96 U/L (17-59) H 10/20/18 07:41 ALT 71 U/L (21-72) 10/20/18 07:41 Alkaline Phosphatase 188 U/L (38-126) H 10/20/18 07:41 Lactate Dehydrogenase 955 U/L (313-618) H 10/17/18 09:54 Total Protein 5.1 g/dL (6.3-8.3) L 10/20/18 07:41 Albumin 2.1 g/dL (3.5-5.0) L 10/20/18 07:41 Globulin 3.0 gm/dL (2.2-3.9) 10/20/18 07:41 Albumin/Globulin Ratio 0.7 (1.0-2.1) L 10/20/18 07:41 Triglycerides 59 mg/dL (0-149) 10/18/18 07:03 Cholesterol 97 mg/dL (0-199) 10/18/18 07:03 LDL Cholesterol Direct 55 mg/dL (0-129) 10/18/18 07:03 HDL Cholesterol 31 mg/dL (30-70) 10/18/18 07:03 Amylase 747 U/L (30-110) H D 10/19/18 07:35 Lipase 1537 U/L (23-300) H 10/20/18 07:41 Carcinoembryonic Ag 7.0 ng/mL (0-3.0) H 10/19/18 18:53 CA 19-9 Antigen 13.2 U/mL (0-37) 10/19/18 18:53 TSH 3rd Generation 7.99 mIU/L (0.46-4.68) H 10/18/18 07:03 Arterial Blood Potassium 3.9 mmol/L (3.6-5.2) 10/17/18 18:30 Venous Blood Potassium 4.2 mmol/L (3.6-5.2) 10/17/18 09:09 Urine Color Celia (YELLOW) 10/18/18 07:37 Urine Clarity Hazy (Clear) 10/18/18 07:37 Urine pH 5.0 (5.0-8.0) 10/18/18 07:37 Ur Specific [place] > 1.060 (1.003-1.030) H 10/18/18 07:37 Urine Protein 1+ mg/dL (NEGATIVE) H 10/18/18 07:37 Urine Glucose (UA) Normal mg/dL (Normal) 10/18/18 07:37 Urine Ketones Negative mg/dL (NEGATIVE) 10/18/18 07:37 Urine Blood 3+ (NEGATIVE) H 10/18/18 07:37 Urine Nitrate Negative (NEGATIVE) 10/18/18 07:37 Urine Bilirubin Negative (NEGATIVE) 10/18/18 07:37 Urine Urobilinogen Normal mg/dL (0.2-1.0) 10/18/18 07:37 Ur Leukocyte Esterase 3+ Kevin/uL (Negative) H 10/18/18 07:37 Urine WBC (Auto) 148 /hpf (0-5) H 10/18/18 07:37 Urine RBC (Auto) 212 /hpf (0-3) H 10/18/18 07:37 Ur Squamous Epith Cells < 1 /hpf (0-5) 10/18/18 07:37 Urine Bacteria Few (<OCC) H 10/18/18 07:37 Stool Occult Blood Positive (NEGATIVE) H 10/19/18 09:39 - Hospital Course Hospital Course: Patient is a 68-year-old M with PMH significant for inguinal hernia, LE swellin g, Aortic Stenosis, who presents to the ED for abdominal pain x1 day. Patient states that in the last week or so he has been feeling weaker and more tired. Patient states that he had a follow-up appointment today at 1PM with Dr. Fowler in the [facility], however he woke up with abdominal pain. Patient rates the pain 7/10 in intensity and localizes it to his mid-abdomen and radiating downward. Patient states the pain is crampy in quality. Patient admits to a bowel movement prior to his pain with loose watery stool however he otherwise denies fever, nausea, vomiting, bloody diarrhea, headache, chest pain, shortness of breath, and/or lower extremity pain. 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 Fowler Patient is a 68-year-old M with PMH significant for inguinal hernia, LE swelling, Aortic Stenosis, admitted for hypothermia, acute pancreatitis and a UTI. Pt was given aggressive IVFs w/ LR's @150. Pt was given Vanc Zosyn bc he met SIRS criteria. Pt was warmed back to 98F quickly with a warmer blanket. ABX were switched to Rocephin IVPB bc he had a UA with 3+ LuekEst. Liapses were 7k, 2k then 1k. [facility] consulted: said outpt colonoscopy. Pt diets advanced. dc home on PO cipro flagyl. Pt is to be discharged home on the following medications Cipro 250mg BID for 4 days @8am, 8pm Flagyl 250mg BID for 4 days@8am, 8pm Bacid probiotic 1 tab at lunch daily for 10 days Flomax 0.4mg PO daily @ 8am Norvasc 20mg daily @8am Please use creams LacHydrin and Cindy&D daily on dry areas as well as on both legs Pt is to follow up with PMD Dr Fowler within one week of discharge. Pt is to follow up with Dr Rodríguez [employer] within one week of discharge call to schedule colonoscopy : [phone] Pt is to seek immediate medical attention if symptoms of urinary retention/burning/pain, fevers/ chills/ Nausea/ vomiting return Take care, be well, be happy C Philriakides DO Discharge Exam - Head Exam Head Exam: ATRAUMATIC, NORMAL INSPECTION - Additional Findings Additional findings: - Constitutional Appears: Non-toxic, No Acute Distress - Head Exam Head Exam: ATRAUMATIC, NORMAL INSPECTION, NORMOCEPHALIC - Eye Exam Eye Exam: EOMI, Normal appearance, PERRL Pupil Exam: NORMAL ACCOMODATION - ENT Exam ENT Exam: Mucous Membranes Dry - Neck Exam Neck Exam: Full ROM - Respiratory Exam Respiratory Exam: Clear to Ausculation Bilateral, NORMAL BREATHING PATTERN. absent: Wheezes - Cardiovascular Exam Cardiovascular Exam: RRR, +S1, +S2 - GI/Abdominal Exam GI & Abdominal Exam: Soft. absent: Guarding, Tenderness - Rectal Exam Rectal Exam: NORMAL INSPECTION. absent: Black Stool, Bloody Stool, Hemorrhoids, Fecal Impaction Additional comments: STAT vitals were normal, AM CBC stable, FOBT pending, NO blood or hemorrhoids felt/seen on STACIA - Extremities Exam Extremities Exam: Pedal Edema. absent: Tenderness - Neurological Exam Neurological Exam: Alert, Awake, CN II-XII Intact, Oriented x3 - Psychiatric Exam Psychiatric exam: Normal Affect - Skin Skin Exam: Abrasion, Dry Additional comments: scaly xerosis diffusely on forehead, scalp, and upper back xerosis with hyperpigmentation on b/l lower legs and feet Discharge Plan - Discharge Medications Prescriptions: RX: amLODIPine [Norvasc] 20 mg PO DAILY #30 tab Ciprofloxacin HCl [Cipro] 250 mg PO BID #8 tablet RX: Lactobacillus Acidophilus [Acidophilus Lactobacilli] 1 each PO DAILY #10 capsule Metronidazole [Flagyl] 250 mg PO BID #8 tablet RX: Tamsulosin [Flomax] 0.4 mg PO DAILY #30 cap - Follow Up Plan Condition: STABLE Disposition: HOME/ ROUTINE Instructions: Ciprofloxacin (Systemic), Pancreatitis (DC), Metronidazole (Systemic), Acute Abdomen (Belly Pain), Adult (DC), Amlodipine, Lactobacillus, Pancreatitis (DC) Additional Instructions: Pt is to be discharged home on the following medications Cipro 250mg BID for 4 days @8am, 8pm Flagyl 250mg BID for 4 days@8am, 8pm Bacid probiotic 1 tab at lunch daily for 10 days Flomax 0.4mg PO daily @ 8am Norvasc 20mg daily @8am Please use creams LacHydrin and Cindy&D daily on dry areas as well as on both legs Pt is to follow up with PMD Dr Fowler within one week of discharge. Pt is to follow up with Dr Rodríguez [employer] within one week of discharge call to schedule colonoscopy : [phone] Pt is to seek immediate medical attention if symptoms of urinary retention/burning/pain, fevers/ chills/ Nausea/ vomiting return Take care, be well, be happy C Philriakianjel DO Referrals: Josie Fowler MD [Staff Provider] - Mariano Rodríguez [Staff Provider] - <Butch Ledezma H - Last Filed: 10/20/18 16:54> Provider - Provider Date of Admission: 10/17/18 10:23 Attending physician: Butch Ledezma DO Consults: 10/18/18 11:41 Gastroenterology Consult Routine Comment: Consulting Provider: Mariano Rodríguez Consulting Physician: Mariano Rodríguez Reason for Consult: high Lipase and amylase, possible CBD stone, ERCP? Urology Consult Routine Comment: Consulting Provider: Elier Mattson Consulting Physician: Elier Mattson Reason for Consult: difficult straight cath, prostatic hyperplasia, urine retention Hospital Course - Lab Results Lab Results: Micro Results 10/17/18 09:43 Blood Blood Culture - Preliminary NO GROWTH AFTER 3 DAYS 10/17/18 09:25 Blood Blood Culture - Preliminary NO GROWTH AFTER 3 DAYS 10/18/18 07:37 Urine,Clean Catch Urine Culture - Final Yeast Species Most Recent Lab Values WBC 12.5 K/uL (4.8-10.8) H 10/20/18 07:46 RBC 3.91 Mil/uL (4.40-5.90) L 10/20/18 07:46 Hgb 12.1 g/dL (12.0-18.0) 10/20/18 07:46 Hct 36.8 % (35.0-51.0) 10/20/18 07:46 MCV 94.1 fL (80.0-94.0) H 10/20/18 07:46 MCH 31.0 pg (27.0-31.0) 10/20/18 07:46 MCHC 33.0 g/dL (33.0-37.0) 10/20/18 07:46 RDW 15.8 % (11.5-14.5) H 10/20/18 07:46 Plt Count 99 K/uL (130-400) L 10/20/18 07:46 MPV 10.4 fL (7.2-11.7) 10/20/18 07:46 Neut % (Auto) 87.9 % (50.0-75.0) H 10/20/18 07:46 Lymph % (Auto) 6.0 % (20.0-40.0) L 10/20/18 07:46 Wilkes % (Auto) 4.3 % (0.0-10.0) 10/20/18 07:46 Eos % (Auto) 1.6 % (0.0-4.0) 10/20/18 07:46 Baso % (Auto) 0.2 % (0.0-2.0) 10/20/18 07:46 Neut # (Auto) 11.0 K/uL (1.8-7.0) H 10/20/18 07:46 Lymph # (Auto) 0.8 K/uL (1.0-4.3) L 10/20/18 07:46 Wilkes # (Auto) 0.5 K/uL (0.0-0.8) 10/20/18 07:46 Eos # (Auto) 0.2 K/uL (0.0-0.7) 10/20/18 07:46 Baso # (Auto) 0.0 K/uL (0.0-0.2) 10/20/18 07:46 Neutrophils % (Manual) 88 % (50-75) H 10/20/18 07:46 Band Neutrophils % 3 % (0-2) H 10/20/18 07:46 Lymphocytes % (Manual) 5 % (20-40) L 10/20/18 07:46 Reactive Lymphs % 1 % (0-0) H 10/20/18 07:46 Monocytes % (Manual) 2 % (0-10) 10/20/18 07:46 Eosinophils % (Manual) 1 % (0-4) 10/20/18 07:46 Platelet Estimate Decreased (NORMAL) L 10/20/18 07:46 Large Platelets Present 10/20/18 07:46 Giant Platelets Present 10/18/18 11:23 Hypochromasia (manual) Slight 10/19/18 07:35 Poikilocytosis (manual Slight 10/19/18 07:35 Anisocytosis (manual) Slight 10/20/18 07:46 Target Cells Slight 10/20/18 07:46 PT 10.9 SECONDS (9.7-12.2) 10/17/18 09:25 INR 1.0 10/17/18 09:25 APTT 39 SECONDS (21-34) H 10/17/18 09:25 Puncture Site Rradial 10/17/18 18:30 pCO2 37 mm/Hg (35-45) 10/17/18 18:30 pO2 69 mm/Hg (80-100) L 10/17/18 18:30 HCO3 24.7 mmol/L (21-28) 10/17/18 18:30 ABG pH 7.42 (7.35-7.45) 10/17/18 18:30 ABG Total CO2 25.1 mmol/L (22-28) 10/17/18 18:30 ABG O2 Saturation 96.3 % (95-98) 10/17/18 18:30 ABG Base Excess -0.2 mmol/L (-2.0-3.0) 10/17/18 18:30 Antonio Test Pos 10/17/18 18:30 ABG Potassium 3.9 mmol/L (3.6-5.2) 10/17/18 18:30 VBG pH 7.38 (7.32-7.43) 10/17/18 09:09 VBG pCO2 50 mmHg (40-60) 10/17/18 09:09 VBG HCO3 26.0 mmol/L 10/17/18 09:09 VBG Total CO2 31.1 mmol/L (22-28) H 10/17/18 09:09 VBG O2 Sat (Calc) 35.8 % (40-65) L 10/17/18 09:09 VBG Base Excess 3.4 mmol/L (0.0-2.0) H 10/17/18 09:09 VBG Potassium 4.2 mmol/L (3.6-5.2) 10/17/18 09:09 A-a O2 Difference 113.0 mm/Hg 10/17/18 18:30 Respiratory Index 1.6 10/17/18 18:30 Sodium 146.0 mmol/l (132-148) 10/17/18 18:30 Chloride 119.0 mmol/L (98-107) H 10/17/18 18:30 Glucose 52 mg/dl (75-110) L 10/17/18 18:30 Lactate 0.6 mmol/L (0.7-2.1) L 10/17/18 18:30 Liter Flow 3.0 10/17/18 18:30 FiO2 32.0 % 10/17/18 18:30 Sodium 144 mmol/L (132-148) 10/20/18 07:41 Potassium 5.1 mmol/L (3.6-5.2) 10/20/18 07:41 Chloride 116 mmol/L (98-107) H 10/20/18 07:41 Carbon Dioxide 25 mmol/L (22-30) 10/20/18 07:41 Anion Gap 9 (10-20) L 10/20/18 07:41 BUN 18 mg/dL (9-20) 10/20/18 07:41 Creatinine 1.1 mg/dL (0.8-1.5) 10/20/18 07:41 Est GFR ( Amer) > 60 10/20/18 07:41 Est GFR (Non-Af Amer) > 60 10/20/18 07:41 POC Glucose (mg/dL) 108 mg/dL (65-110) 10/18/18 16:28 Random Glucose 56 mg/dL (75-110) L 10/20/18 07:41 Calcium 8.5 mg/dl (8.6-10.4) L 10/20/18 07:41 Phosphorus 2.4 mg/dL (2.5-4.5) L 10/20/18 07:41 Magnesium 2.0 mg/dL (1.6-2.3) 10/20/18 07:41 Total Bilirubin 0.2 mg/dL (0.2-1.3) 10/20/18 07:41 AST 96 U/L (17-59) H 10/20/18 07:41 ALT 71 U/L (21-72) 10/20/18 07:41 Alkaline Phosphatase 188 U/L (38-126) H 10/20/18 07:41 Lactate Dehydrogenase 955 U/L (313-618) H 10/17/18 09:54 Total Protein 5.1 g/dL (6.3-8.3) L 10/20/18 07:41 Albumin 2.1 g/dL (3.5-5.0) L 10/20/18 07:41 Globulin 3.0 gm/dL (2.2-3.9) 10/20/18 07:41 Albumin/Globulin Ratio 0.7 (1.0-2.1) L 10/20/18 07:41 Triglycerides 59 mg/dL (0-149) 10/18/18 07:03 Cholesterol 97 mg/dL (0-199) 10/18/18 07:03 LDL Cholesterol Direct 55 mg/dL (0-129) 10/18/18 07:03 HDL Cholesterol 31 mg/dL (30-70) 10/18/18 07:03 Amylase 747 U/L (30-110) H D 10/19/18 07:35 Lipase 1537 U/L (23-300) H 10/20/18 07:41 Carcinoembryonic Ag 7.0 ng/mL (0-3.0) H 10/19/18 18:53 CA 19-9 Antigen 13.2 U/mL (0-37) 10/19/18 18:53 TSH 3rd Generation 7.99 mIU/L (0.46-4.68) H 10/18/18 07:03 Arterial Blood Potassium 3.9 mmol/L (3.6-5.2) 10/17/18 18:30 Venous Blood Potassium 4.2 mmol/L (3.6-5.2) 10/17/18 09:09 Urine Color Celia (YELLOW) 10/18/18 07:37 Urine Clarity Hazy (Clear) 10/18/18 07:37 Urine pH 5.0 (5.0-8.0) 10/18/18 07:37 Ur Specific [place] > 1.060 (1.003-1.030) H 10/18/18 07:37 Urine Protein 1+ mg/dL (NEGATIVE) H 10/18/18 07:37 Urine Glucose (UA) Normal mg/dL (Normal) 10/18/18 07:37 Urine Ketones Negative mg/dL (NEGATIVE) 10/18/18 07:37 Urine Blood 3+ (NEGATIVE) H 10/18/18 07:37 Urine Nitrate Negative (NEGATIVE) 10/18/18 07:37 Urine Bilirubin Negative (NEGATIVE) 10/18/18 07:37 Urine Urobilinogen Normal mg/dL (0.2-1.0) 10/18/18 07:37 Ur Leukocyte Esterase 3+ Kevin/uL (Negative) H 10/18/18 07:37 Urine WBC (Auto) 148 /hpf (0-5) H 10/18/18 07:37 Urine RBC (Auto) 212 /hpf (0-3) H 10/18/18 07:37 Ur Squamous Epith Cells < 1 /hpf (0-5) 10/18/18 07:37 Urine Bacteria Few (<OCC) H 10/18/18 07:37 Stool Occult Blood Positive (NEGATIVE) H 10/19/18 09:39 Attending/Attestation - Attestation I have personally seen and examined this patient.: Yes I have fully participated in the care of the patient.: Yes I have reviewed all pertinent clinical information, including history, physical exam and plan: Yes Notes (Text): 10/20/18 16:52 Medical attending: Patient was seen and examined by me. Reviewed the above note by the resident and agree with the above. Lipase continues to decline, he understands he needs to follow up with the Clinic. Also he continues to report he does not have abdominal pain. He is tolerating his diet as well Cultures are negative at this moment He also needs to avoid any alcohol consupmtion Butch Ledezma
[2018-10-20] MEDS ORDERED: Bisacodyl 5mg EC Tab PO ONE (17:00)
== END 2018-10-20 18:43 | disposition home or self-care (01) | DRG 439 ==
LOC: C.ER 07:13 → C.9E 10:23 → C.3T 10:33
PROVIDERS: ADMIT Hospitalist; ATTEND Hospitalist
DX: K85.90 Acute pancreatitis without necrosis or infection, unspecified (principal); N39.0 Urinary tract infection, site not specified; R18.8 Other ascites; J98.11 Atelectasis; I87.2 Venous insufficiency (chronic) (peripheral); N43.3 Hydrocele, unspecified; K44.9 Diaphragmatic hernia without obstruction or gangrene; L85.3 Xerosis cutis; I50.9 Heart failure, unspecified; I11.0 Hypertensive heart disease with heart failure; D69.6 Thrombocytopenia, unspecified; K22.9 Disease of esophagus, unspecified; Z98.84 Bariatric surgery status